=== PATIENT | female | born 1940 | race Caucasian/White ===

== ENCOUNTER → 2016-12-05 | Outpatient (CLI) | payer MEDICARE ==
--- NOTE | 2016-12-06 10:39 | MM ---
Reason for exam: screening (asymptomatic). Last mammogram was performed 1 year and 6 months ago. History: Family history of breast cancer in sister. Physical Findings: A clinical breast exam by your physician is recommended on an annual basis and results should be correlated with mammographic findings. MG 3D Screening Mammo W/Cad Bilateral CC and MLO view(s) were taken. Prior study comparison: June 13, 2015, mammogram, performed at [facility]. May 05, 2014, mammogram, performed at [facility]. The breast tissue is heterogeneously dense. This may lower the sensitivity of mammography. No significant changes when compared with prior studies. ASSESSMENT: Negative, BI-RAD 1 RECOMMENDATION: Routine screening mammogram of both breasts in 1 year.
== END | disposition home or self-care (01) ==
LOC: RADMAMWWP 14:16
PROVIDERS: ATTEND Family Medicine
DX: Z12.31 Encounter for screening mammogram for malignant neoplasm of breast (principal)
CPT/HCPCS: 77063; G0202

== ENCOUNTER → 2018-01-01 | Outpatient (CLI) | payer MEDICARE ==
--- NOTE | 2018-01-02 13:24 | MM ---
Reason for exam: screening (asymptomatic). Last mammogram was performed 1 year and 1 month ago. History: Family history of breast cancer in sister. Physical Findings: A clinical breast exam by your physician is recommended on an annual basis and results should be correlated with mammographic findings. MG 3D Screening Mammo W/Cad Bilateral CC and MLO view(s) were taken. Prior study comparison: December 05, 2016, bilateral MG 3d screening mammo w/cad. June 13, 2015, mammogram, performed at [facility]. The breast tissue is heterogeneously dense. This may lower the sensitivity of mammography. Stable benign calcifications. There is no discrete abnormality. No significant changes when compared with prior studies. ASSESSMENT: Benign, BI-RAD 2 RECOMMENDATION: Routine screening mammogram of both breasts in 1 year.
== END | disposition home or self-care (01) ==
LOC: RADMAMWWP 14:55
PROVIDERS: ATTEND Family Medicine
DX: Z12.31 Encounter for screening mammogram for malignant neoplasm of breast (principal)
CPT/HCPCS: 77063; 77067

== ENCOUNTER → 2018-03-05 | Outpatient (CLI) | payer MEDICARE ==
--- NOTE | 2018-03-06 07:08 | US ---
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 Hypothyroid- on meds. GLAND SIZE: Right Lobe: 4.2 x 2.0 x 1.8 cm Overall Parenchyma: heterogenous Left Lobe: 4.2 x 1.8 x 1.8 cm Overall Parenchyma: heterogeneous Isthmus Thickness: 0.6 cm NODULES RIGHT: # of nodules measured on right: 0 LEFT: # of nodules measured on left: 0 ISTHMUS: # of nodules measured in the isthmus: 0 Bilateral neck scanned, no evidence of lymphadenopathy. IMPRESSION: Bilateral heterogenous thyroid lobes with no prominent nodules visualized.
== END | disposition home or self-care (01) ==
LOC: RADUSWWP 16:39
PROVIDERS: ATTEND Family Medicine
DX: E04.1 Nontoxic single thyroid nodule (principal)
CPT/HCPCS: 76536

== ENCOUNTER 2018-03-22 22:02 | Emergency (ER) | payer MEDICARE ==
--- NOTE | 2018-03-23 00:02 | ED ---
Fall HPI - General Chief Complaint: Fall Stated Complaint: Fell Time Seen by Provider: 03/22/18 22:53 Source: patient Mode of arrival: ambulatory - History of Present Illness Initial Comments: This patient is 77-year-old woman who presents to be evaluated after she had a ground-level fall. Patient states that she had tripped and then she struck her right knee on the ground, as well as hitting her head against the couch which she believes wrenched her neck. She is not having pain in the head but she does have some tightness at the base of her neck. She also has some tenderness to the anterior knee. She did not note any lacerations. She did not have loss of consciousness. She was able to stand following the fall but she states it makes her knee hurt. She is concerned because she had surgical replacement of the right knee. 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 Place Fall Occurred: home Loss of Consciousness: none Prolonged Down Time?: no Location: neck Location - Extremities: Right: Knee Severity: moderate Quality: aching Context: tripped/slipped - Related Data Home Medications Medication Instructions Recorded Confirmed ALPRAZolam [Xanax] 0.5 mg PO TID PRN 03/22/18 03/22/18 Aspirin [[place] Aspirin EC] 81 mg PO DAILY 03/22/18 03/22/18 Azithromycin [Zithromax] 500 mg PO DAILY 03/22/18 03/22/18 Cholecalciferol [Vitamin D3] 1,000 unit PO DAILY 03/22/18 03/22/18 Levothyroxine Sodium [Synthroid] 100 mcg PO DAILY 03/22/18 03/22/18 Losartan [Cozaar] 50 mg PO DAILY 03/22/18 03/22/18 Pantoprazole [Protonix] 40 mg PO DAILY 03/22/18 03/22/18 Propranolol HCl [Inderal Xl] 80 mg PO DAILY 03/22/18 03/22/18 Vit C/E/Zn/Coppr/Lutein/Zeaxan 1 cap PO DAILY 03/22/18 03/22/18 [Preservision Areds 2 Softgel] Allergies Allergy/AdvReac Type Severity Reaction Status Date / Time acetaminophen Allergy Anaphylaxis Verified 03/22/18 23:04 [From Darvocet-N] amoxicillin [From Augmentin] Allergy Anaphylaxis Verified 03/22/18 23:04 clavulanic acid Allergy Anaphylaxis Verified 03/22/18 23:04 [From Augmentin] Corticosteroids Allergy Anaphylaxis Verified 03/22/18 23:04 (Glucocorticoids) levofloxacin [From Levaquin] Allergy Anaphylaxis Verified 03/22/18 23:04 naproxen [From Aleve] Allergy Swelling Verified 03/22/18 23:04 oxcarbazepine Allergy Anaphylaxis Verified 03/22/18 23:04 [From Trileptal] Penicillins Allergy Anaphylaxis Verified 03/22/18 23:04 propoxyphene Allergy Anaphylaxis Verified 03/22/18 23:04 [From Darvocet-N] Sulfa (Sulfonamide Allergy Anaphylaxis Verified 03/22/18 23:04 Antibiotics) Review of Systems ROS Statement: Those systems with pertinent positive or pertinent negative responses have been documented in the HPI. ROS Other: All systems not noted in ROS Statement are negative. Constitutional: Denies: weakness Eyes: Denies: vision change Respiratory: Denies: cough, dyspnea Cardiovascular: Denies: chest pain, syncope Gastrointestinal: Denies: abdominal pain Musculoskeletal: Reports: arthralgia (Right knee). Denies: back pain Skin: Denies: rash Neurological: Denies: headache Past Medical History Past Medical History: CVA/TIA, Hypertension, Thyroid Disorder History of Any Multi-Drug Resistant Organisms: None Reported Past Surgical History: Joint Replacement Additional Past Surgical History / Comment(s): bilateral knee Past Psychological History: Anxiety Smoking Status: Never smoker Past Alcohol Use History: None Reported Past Drug Use History: None Reported General Exam Limitations: no limitations General appearance: alert, in no apparent distress Head exam: Present: atraumatic, normocephalic, normal inspection Eye exam: Present: normal appearance Neck exam: Present: tenderness Respiratory exam: Present: normal lung sounds bilaterally. Absent: respiratory distress, wheezes, rales, rhonchi, stridor, chest wall tenderness Cardiovascular Exam: Present: regular rate, normal rhythm, normal heart sounds. Absent: systolic murmur, diastolic murmur, rubs, gallop GI/Abdominal exam: Present: soft. Absent: distended, tenderness, guarding, rebound, rigid, mass Extremities exam: Present: normal inspection, normal capillary refill. Absent: pedal edema, calf tenderness Back exam: Present: normal inspection. Absent: CVA tenderness (R), CVA tenderness (L), vertebral tenderness Neurological exam: Present: alert Skin exam: Present: warm, dry, intact, normal color. Absent: rash Course Vital Signs 03/22/18 03/23/18 22:15 02:23 Temperature 98.0 F 97.6 F Pulse Rate 75 72 Respiratory 18 16 Rate Blood Pressure 177/114 102/95 O2 Sat by Pulse 95 95 Oximetry Disposition Clinical Impression: Fall, Contusion of knee, right, Cervical strain Disposition: HOME SELF-CARE Condition: Good Instructions: Cervical Strain (ED), Fall Prevention for Older Adults (ED) Is patient prescribed a controlled substance at d/c from ED?: No Referrals: José Miguel Miner DO [Primary Care Provider] - 1-2 days
--- NOTE | 2018-03-23 01:05 | CT ---
EXAMINATION TYPE: CT cervical spine wo con DATE OF EXAM: 03/23/2018 COMPARISON: None HISTORY: Fall;evaluate for trauma CT DLP: 465.4 mGycm Automated exposure control for dose reduction was used. TECHNIQUE: CT scan of the cervical spine is obtained without contrast, axial images are obtained, sa gittal and coronal reformatted images are also reviewed. FINDINGS: Cervical vertebra have normal alignment. The posterior elements are intact. There is mild h ypertrophic facet arthropathy in the mid cervical spine. This spaces are fairly normal. There is no c ompression fracture. Skull base is intact. There are small calcifications in the soft tissues posteri or to the occipital condyles that probably relates to old degenerative phenomenon. IMPRESSION: Minor spondylotic changes. No fracture seen.
--- NOTE | 2018-03-23 01:06 | XR ---
EXAMINATION TYPE: XR knee complete RT DATE OF EXAM: 03/23/2018 COMPARISON: NONE HISTORY: Fall. Pain. TECHNIQUE: 3 views FINDINGS: There is right knee prosthesis. Components appear in anatomic position. I see no fracture. There is no sign of joint effusion. IMPRESSION: Negative exam. No fracture.
[2018-03-23 02:24] VITALS: BP 102/95; PULSE 72; RESP 16; TEMP 97.6
== END 2018-03-23 02:23 | disposition home or self-care (01) ==
LOC: EC 22:02
DX: S80.01XA Contusion of right knee, initial encounter (principal); S16.1XXA Strain of muscle, fascia and tendon at neck level, initial encounter; F41.9 Anxiety disorder, unspecified; I10 Essential (primary) hypertension; E03.9 Hypothyroidism, unspecified; Z79.82 Long term (current) use of aspirin; Z79.890 Hormone replacement therapy; Z79.899 Other long term (current) drug therapy; Z88.6 Allergy status to analgesic agent; Z88.0 Allergy status to penicillin; Z88.1 Allergy status to other antibiotic agents; Z88.2 Allergy status to sulfonamides; Z88.8 Allergy status to other drugs, medicaments and biological substances; Z86.73 Personal history of transient ischemic attack (TIA), and cerebral infarction without residual deficits; Z96.651 Presence of right artificial knee joint; W01.198A Fall on same level from slipping, tripping and stumbling with subsequent striking against other object, initial encounter; Y93.G3 Activity, cooking and baking; Y92.009 Unspecified place in unspecified non-institutional (private) residence as the place of occurrence of the external cause
CPT/HCPCS: 72125; 99284

== ENCOUNTER → 2019-02-21 | Outpatient (CLI) | payer MEDICARE ==
--- NOTE | 2019-02-23 09:58 | MM ---
Reason for exam: screening (asymptomatic). Last mammogram was performed 1 year and 2 months ago. History: Patient is postmenopausal. Family history of breast cancer in sister. Took hormonal contraceptives for 3 months. Physical Findings: A clinical breast exam by your physician is recommended on an annual basis and results should be correlated with mammographic findings. MG 3D Screening Mammo W/Cad Bilateral CC and MLO view(s) were taken. Prior study comparison: January 01, 2018, bilateral MG 3d screening mammo w/cad. December 05, 2016, bilateral MG 3d screening mammo w/cad. The breast tissue is heterogeneously dense. This may lower the sensitivity of mammography. Stable benign calcifications. There is no discrete abnormality. No significant changes when compared with prior studies. ASSESSMENT: Benign, BI-RAD 2 RECOMMENDATION: Routine screening mammogram of both breasts in 1 year.
== END | disposition home or self-care (01) ==
LOC: RADMAMWWP 10:32
PROVIDERS: ATTEND Family Medicine
DX: Z12.31 Encounter for screening mammogram for malignant neoplasm of breast (principal)
CPT/HCPCS: 77063; 77067

== ENCOUNTER → 2020-02-26 | Outpatient (CLI) | payer MEDICARE ==
--- NOTE | 2020-03-01 12:18 | MM ---
Reason for exam: screening (asymptomatic). Last mammogram was performed 1 year ago. History: Patient is postmenopausal. Family history of breast cancer in sister. Took hormonal contraceptives for 3 months. Physical Findings: A clinical breast exam by your physician is recommended on an annual basis and results should be correlated with mammographic findings. MG 3D Screening Mammo W/Cad Bilateral CC and MLO view(s) were taken. Prior study comparison: February 21, 2019, bilateral MG 3d screening mammo w/cad. January 01, 2018, bilateral MG 3d screening mammo w/cad. The breast tissue is heterogeneously dense. This may lower the sensitivity of mammography. Benign vascular calcifications on the left. No significant changes when compared with prior studies. ASSESSMENT: Negative, BI-RAD 1 RECOMMENDATION: Routine screening mammogram of both breasts in 1 year.
== END | disposition home or self-care (01) ==
LOC: RADMAMWWP 15:27
PROVIDERS: ATTEND Family Medicine
DX: Z12.31 Encounter for screening mammogram for malignant neoplasm of breast (principal)
CPT/HCPCS: 77063; 77067

== ENCOUNTER → 2022-02-21 | Outpatient (CLI) | payer MEDICARE ==
--- NOTE | 2022-02-21 12:41 | XR ---
EXAMINATION TYPE: XR chest 2V DATE OF EXAM: 02/21/2022 COMPARISON: NONE TECHNIQUE: PA and lateral views submitted. HISTORY: Cough and congestion FINDINGS: The lungs are clear and there is no pneumothorax, pleural effusion, or focal pneumonia. Heart size is stable. Coarsened interstitium. Biapical pleural thickening. Hypertrophic and degenerative changes spine. IMPRESSION: 1. Coarsened interstitium uncovering the basis of chronic lung disease. Without a prior exam for comp arison a mild bronchitis or interstitial pneumonitis could not be excluded.
== END | disposition home or self-care (01) ==
LOC: RADXRMAIN 12:08
PROVIDERS: ATTEND Nurse Practitioner Family
DX: J98.4 Other disorders of lung (principal); J39.3 Upper respiratory tract hypersensitivity reaction, site unspecified
CPT/HCPCS: 71046

== ENCOUNTER 2022-05-21 18:22 | Inpatient (IN) | payer MEDICARE ==
--- NOTE | 2022-05-21 18:59 | ED ---
General Adult HPI - General Chief complaint: Neuro Symptoms/Deficit Stated complaint: altered mental Time Seen by Provider: 05/21/22 18:48 Source: patient, RN notes reviewed Mode of arrival: wheelchair Limitations: no limitations - History of Present Illness Initial comments: Patient is a pleasant 82-year-old female presenting to the emergency department with concerns for altered mental status and slurred speech. Onset of symptoms was when she awoke from a nap around 4:30. Patient last known well was around 2 PM. Patient was confused and had slurred speech. This has improved. Patient no longer feels confused. Patient still has minimal speech problems however is close to normal. No arm or leg involvement. No headache. Patient does have h istory of 2 similar episodes years ago when diagnosed with TIAs. - Related Data Home Medications Medication Instructions Recorded Confirmed ALPRAZolam [Xanax] 0.5 mg PO TID PRN 03/22/18 03/22/18 Aspirin [[place] Aspirin EC] 81 mg PO DAILY 03/22/18 03/22/18 Azithromycin [Zithromax] 500 mg PO DAILY 03/22/18 03/22/18 Cholecalciferol [Vitamin D3] 1,000 unit PO DAILY 03/22/18 03/22/18 Levothyroxine Sodium [Synthroid] 100 mcg PO DAILY 03/22/18 03/22/18 Losartan [Cozaar] 50 mg PO DAILY 03/22/18 03/22/18 Pantoprazole [Protonix] 40 mg PO DAILY 03/22/18 03/22/18 Propranolol HCl [Inderal Xl] 80 mg PO DAILY 03/22/18 03/22/18 Vit C/E/Zn/Coppr/Lutein/Zeaxan 1 cap PO DAILY 03/22/18 03/22/18 [Preservision Areds 2 Softgel] Allergies Allergy/AdvReac Type Severity Reaction Status Date / Time acetaminophen Allergy Anaphylaxis Verified 03/22/18 23:04 [From Darvocet-N] amoxicillin [From Augmentin] Allergy Anaphylaxis Verified 03/22/18 23:04 clavulanic acid Allergy Anaphylaxis Verified 03/22/18 23:04 [From Augmentin] Corticosteroids Allergy Anaphylaxis Verified 03/22/18 23:04 (Glucocorticoids) levofloxacin [From Levaquin] Allergy Anaphylaxis Verified 03/22/18 23:04 naproxen [From Aleve] Allergy Swelling Verified 03/22/18 23:04 oxcarbazepine Allergy Anaphylaxis Verified 03/22/18 23:04 [From Trileptal] Penicillins Allergy Anaphylaxis Verified 03/22/18 23:04 propoxyphene Allergy Anaphylaxis Verified 03/22/18 23:04 [From Darvocet-N] Sulfa (Sulfonamide Allergy Anaphylaxis Verified 03/22/18 23:04 Antibiotics) Review of Systems ROS Statement: Those systems with pertinent positive or pertinent negative responses have been documented in the HPI. ROS Other: All systems not noted in ROS Statement are negative. Constitutional: Denies: fever Eyes: Denies: eye pain ENT: Denies: ear pain Respiratory: Denies: cough Cardiovascular: Denies: palpitations Endocrine: Denies: fatigue Gastrointestinal: Denies: abdominal pain Genitourinary: Denies: dysuria Musculoskeletal: Denies: back pain Skin: Denies: rash Neurological: Reports: as per HPI, confusion. Denies: headache, weakness Past Medical History Past Medical History: Chest Pain / Angina, CVA/TIA, GERD/Reflux, Hyperlipidemia, Hypertension, Thyroid Disorder History of Any Multi-Drug Resistant Organisms: None Reported Past Surgical History: Hysterectomy, Joint Replacement, Tonsillectomy Additional Past Surgical History / Comment(s): bilateral knee Past Psychological History: Anxiety Past Alcohol Use History: None Reported Past Drug Use History: None Reported General Exam Limitations: no limitations General appearance: alert, in no apparent distress Head exam: Present: normocephalic Eye exam: Present: normal appearance, PERRL, EOMI ENT exam: Present: normal oropharynx Neck exam: Present: normal inspection. Absent: tenderness Respiratory exam: Present: normal lung sounds bilaterally Cardiovascular Exam: Present: regular rate, normal rhythm GI/Abdominal exam: Present: soft. Absent: tenderness Extremities exam: Present: normal inspection. Absent: pedal edema, calf tenderness Neurological exam: Present: alert, oriented X3, CN II-XII intact. Absent: motor sensory deficit Expanded Neurological exam: Present: protecting the airway, other (Patient is slightly hesitant with speech with minimal slurring) Patient oriented to: Present: person, place, time Cranial nerves: EOM's Intact: Normal, Facial Sensation: Normal Sensory exam: Upper Extremity Light Touch: Normal, Lower Extremity Light Touch: Normal Motor strength exam: RUE: 5, LUE: 5, RLE: 5, LLE: 5 Eye Response: (4) open spontaneously Motor Response: (6) obeys commands Verbal Response: (5) oriented Psychiatric exam: Present: normal affect, normal mood Skin exam: Present: normal color Course Vital Signs 05/21/22 05/21/22 05/21/22 18:38 19:01 19:30 Temperature 97.3 F L Pulse Rate 61 67 Respiratory 16 18 Rate Blood Pressure 230/120 198/116 236/121 O2 Sat by Pulse 95 94 L Oximetry 05/21/22 05/21/22 19:40 19:50 Temperature Pulse Rate 66 68 Respiratory 16 16 Rate Blood Pressure 226/113 203/99 O2 Sat by Pulse 95 94 L Oximetry - Reevaluation(s) Reevaluation #1: 05/21/22 19:05 Patient is not a TPA candidate secondary to last known well greater than 4.5 hours. Patient states she does have an ALLERGY to contrast in her throat closes off. Patient also has an ALLERGY to steroids. Therefore CT will be canceled. 05/21/22 19:15 Case was discussed with Dr. Buenrostro who does agree patient is not a TPA candidate. EKG Findings - EKG Results: EKG: interpreted by ERMD (First-degree AV block IA of 261. Left axis. Nonspecific intraventricular conduction delay. No acute ST change.), sinus rhythm Medical Decision Making - Medical Decision Making Was pt. sent in by a medical professional or institution (, PA, VEHICLE SERVICE ATTENDANT, urgent care, hospital, or [facility]...) When possible be specific @ -No Did you speak to anyone other than the patient for history (EMS, parent, family, police, friend...)? What history was obtained from this source @ -Patient's niece is present and helps provide history including last known well Did you review nursing and triage notes (agree or disagree)? Why? @ -I reviewed and agree with nursing and triage notes Were old charts reviewed (outside hosp., previous admission, EMS record, old EKG, old radiological studies, urgent care reports/EKG's, [facility] records)? Report findings @ -No old charts were reviewed Differential Diagnosis (chest pain, altered mental status, abdominal pain women, abdominal pain men, vaginal bleeding, weakness, fever, dyspnea, syncope, headache, dizziness, GI bleed, back pain, seizure, CVA, palpatations, mental health)? @ -Differential Weakness: Hypoglycemia, shock, sepsis, hyponatremia, anemia, infection, CA, ETOH, adverse medicine reaction, overdose, stroke, this is not meant to be an all-inclusive list. EKG interpreted by me (3pts min.). @ -As above X-rays interpreted by me (1pt min.). @ -Chest x-ray does not reveal any acute process CT interpreted by me (1pt min.). @ -Computed tomography scan without large mass or bleed U/S interpreted by me (1pt. min.). @ -None done What testing was considered but not performed or refused? (CT, X-rays, U/S, labs)? Why? @ -CTA was considered however patient has contrast ALLERGY as well as corticosteroid ALLERGY What meds were considered but not given or refused? Why? @ -None Did you discuss the management of the patient with other professionals (professionals i.e. , PA, VEHICLE SERVICE ATTENDANT, lab, RT, psych nurse, social studies department chair, machine cutter, teacher, environmental officer, case filler)? Give summary @ -Case was discussed with Dr. Buenrostro who agrees patient is not a TPA candidate. Risks her felt to outweigh the benefits. Case also discussed with Dr. Miner who will admit his patient. Was smoking cessation discussed for >3mins.? @ -No Was critical care preformed (if so, how long)? @ -No Were there social determinants of health that impacted care today? How? (Homelessness, low income, unemployed, alcoholism, drug addiction, transport ation, low edu. Level, literacy, decrease access to med. care, long-term, rehab)? @ -No Was there de-escalation of care discussed even if they declined (Discuss DNR or withdrawal of care, Hospice)? DNR status @ -No What co-morbidities impacted this encounter? (DM, HTN, Smoking, COPD, CAD, Cancer, CVA, ARF, Chemo, Hep., AIDS, mental health diagnosis, sleep apnea, morbid obesity)? @ -None Was patient admitted / discharged? Hospital course, mention meds given and route, prescriptions, significant lab abnormalities, going to OR and other pertinent info. @ -Patient reevaluated and feels even somewhat better however not quite normal. Speech changes have not significantly changed. Patient will be admitted with neurology consult Undiagnosed new problem with uncertain prognosis? @ -No Drug Therapy requiring intensive monitoring for toxicity (Heparin, Nitro, Insulin, Cardizem)? @ -No Were any procedures done? @ -No Diagnosis/symptom? @ -CVA Acute, or Chronic, or Acute on Chronic? @ -Acute Uncomplicated (without systemic symptoms) or Complicated (systemic symptoms)? @ -default Side effects of treatment? @ -No Exacerbation, Progression, or Severe Exacerbation? @ -No Poses a threat to life or bodily function? How? (Chest pain, USA, CA, pneumonia, PE, COPD, DKA, ARF, appy, cholecystitis, CVA, Diverticulitis, Homicidal, Suicidal, threat to staff... and all critical care pts) @ -No - Lab Data Result diagrams: 05/21/22 19:01 05/21/22 19:01 Lab Results 05/21/22 05/21/22 05/21/22 Range/Units 19:01 19:01 19:01 WBC 4.1 (3.8-10.6) k/uL RBC 4.71 (3.80-5.40) m/uL Hgb 13.9 (11.4-16.0) gm/dL Hct 42.9 (34.0-46.0) % MCV 91.0 (80.0-100.0) fL MCH 29.5 (25.0-35.0) pg MCHC 32.4 (31.0-37.0) g/dL RDW 14.2 (11.5-15.5) % Plt Count 124 L (150-450) k/uL MPV 7.3 Neutrophils % 61 % Lymphocytes % 24 % Monocytes % 7 % Eosinophils % 4 % Basophils % 0 % Neutrophils # 2.5 (1.3-7.7) k/uL Lymphocytes # 1.0 (1.0-4.8) k/uL Monocytes # 0.3 (0-1.0) k/uL Eosinophils # 0.2 (0-0.7) k/uL Basophils # 0.0 (0-0.2) k/uL Sodium 137 (137-145) mmol/L Potassium 4.7 (3.5-5.1) mmol/L Chloride 99 (98-107) mmol/L Carbon Dioxide 31 H (22-30) mmol/L Anion Gap 7 mmol/L BUN 18 H (7-17) mg/dL Creatinine 0.64 (0.52-1.04) mg/dL Est GFR (CKD-EPI)AfAm >90 (>60 ml/min/1.73 sqM) Est GFR (CKD-EPI)NonAf 85 (>60 ml/min/1.73 sqM) Glucose 109 H (74-99) mg/dL POC Glucose (mg/dL) 122 H (70-110) mg/dL POC Glu Chemical Unit Operator ID Asa Goodwin Calcium 8.9 (8.4-10.2) mg/dL Total Bilirubin 0.5 (0.2-1.3) mg/dL AST 32 (14-36) U/L ALT 29 (4-34) U/L Alkaline Phosphatase 119 (38-126) U/L Total Protein 8.1 (6.3-8.2) g/dL Albumin 4.1 (3.5-5.0) g/dL Disposition Clinical Impression: Cerebrovascular accident (CVA) Disposition: ADMITTED IP TO THIS HOSP Is patient prescribed a controlled substance at d/c from ED?: No Referrals: José Miguel Miner DO [Primary Care Provider] - 1-2 days Time of Disposition: 20:02
[2022-05-21 19:02] LABS: Glucose,Whole Blood 122 mg/dL (70-110)
[2022-05-21] MEDS ORDERED: LABETALOL 5 MG/ML VIAL MDV IVP STA (19:22)
[2022-05-21 19:27] LABS: Basophils % (A) 0 %; Eosinophils # (A) 0.2 k/uL (0-0.7); Eosinophils % (A) 4 %; HCT 42.9 % (34.0-46.0); HGB 13.9 gm/dL (11.4-16.0); Lymphocytes % (A) 24 %; MCH 29.5 pg (25.0-35.0); MCHC 32.4 g/dL (31.0-37.0); Mean Platelet Volume 7.3; Monocytes # (A) 0.3 k/uL (0-1.0); Monocytes % (A) 7 %; Neutrophils # (A) 2.5 k/uL (1.3-7.7); Neutrophils % (A) 61 %; Platelet Count 124 k/uL (150-450); RBC 4.71 m/uL (3.80-5.40); RDW 14.2 % (11.5-15.5); WBC 4.1 k/uL (3.8-10.6)
--- NOTE | 2022-05-21 19:38 | CT ---
EXAMINATION TYPE: CT brain wo con DATE OF EXAM: 05/21/2022 COMPARISON: None HISTORY: neuro deficit CT DLP: 1162.6 mGycm Automated exposure control for dose reduction was used. Images obtained of the brain without contrast. Ventricles of normal size. There is no mass effect or midline shift. No sign of intracranial hemorrha ge. Calvarium is intact. There is normal aeration of the mastoid sinuses. No evidence of cerebral bernardo ma. There is some mucosal thickening left maxillary sinus. IMPRESSION: Negative CT scan of the brain. Minimal left maxillary sinusitis.
--- NOTE | 2022-05-21 19:43 | XR ---
EXAMINATION TYPE: XR chest 2V DATE OF EXAM: 05/21/2022 COMPARISON: 02/21/2022 HISTORY: Altered mental status TECHNIQUE: 2 views FINDINGS: Heart is normal. Lungs are clear of infiltrate. No heart failure. There are chest leads. Co stophrenic angles are clear. Bony thorax is intact. IMPRESSION: No active cardiopulmonary disease. No change.
[2022-05-21 19:47] LABS: ALT 29 U/L (4-34); African American GFR (CKD) >90 (>60 ml/min/1.73 sqM); Albumin 4.1 g/dL (3.5-5.0); Anion Gap 7 mmol/L; Blood Urea Nitrogen 18 mg/dL (7-17); Calcium 8.9 mg/dL (8.4-10.2); Carbon Dioxide 31 mmol/L (22-30); Chloride 99 mmol/L (98-107); Glucose 109 mg/dL (74-99); Non-African American GFR(CKD) 85 (>60 ml/min/1.73 sqM); Sodium 137 mmol/L (137-145); Total Bilirubin 0.5 mg/dL (0.2-1.3); Total Protein 8.1 g/dL (6.3-8.2)
[2022-05-21 19:56] LABS: AST 32 U/L (14-36); Alkaline Phosphatase 119 U/L (38-126); Potassium 4.7 mmol/L (3.5-5.1)
[2022-05-21] MEDS ORDERED: ASPIRIN 325 MG TAB PO STA (20:02)
[2022-05-21 20:06] LABS: Partial Thromboplastin Time 25.5 sec (22.0-30.0); Prothrombin Time 10.5 sec (9.0-12.0)
[2022-05-21] MEDS: SODIUM CHLORIDE 0.9% 1,000 ML IV SCH (21:41)
[2022-05-21] MEDS: ALPRAZolam 0.5 MG TAB PO PRN (23:48)
--- NOTE | 2022-05-21 23:51 | US ---
EXAMINATION TYPE: US carotid duplex BILAT DATE OF EXAM: 05/21/2022 COMPARISON: NONE CLINICAL HISTORY: Stenosis. stenosis TECHNIQUE: Carotid duplex ultrasound examination. Indirect Doppler criteria was utilized. FINDINGS: EXAM MEASUREMENTS: RIGHT: Peak Systolic Velocity (PSV) cm/sec ----- Right CCA: 69.0 ----- Right ICA: 47.0 ----- Right ECA: 84.0 ICA/CCA ratio: 0.7 RIGHT: End Diastole cm/sec ----- Right CCA: 12.9 ----- Right ICA: 11.3 ----- Right ECA: 16.7 LEFT: Peak Systolic Velocity (PSV) cm/sec ----- Left CCA: 64.7 ----- Left ICA: 84.5 ----- Left ECA: 66.9 ICA/CCA ratio: 1.3 LEFT: End Diastole cm/sec ----- Left CCA: 13.1 ----- Left ICA: 23.0 ----- Left ECA: 12.0 VERTEBRALS (direction of flow): Right Vertebral: Antegrade Left Vertebral: Antegrade Rhythm: Normal GOAT FARMER NOTES: Small amount of plaque visualized in bilateral bulbs. IMPRESSION: There is antegrade flow in the vertebral arteries. Mild bilateral plaque formation. Images of measurement suggests less than 25% stenosis in both hr internship al carotid arteries. Criteria for Assigning % of Stenosis / Diameter reduction (Estimation based on the indirect measurements of the internal carotid artery velocities (ICA PSV). 1. Normal (no stenosis)=ICA PSV < 125 cm/s: ratio < 2.0: ICA EDV<40 cm/s. 2. Less than 50% stenosis=ICA PSV < 125 cm/s: ratio < 2.0: ICA EDV<40 cm/s. 3. 50 to 69% stenosis=ICA PSV of 125 to 230 cm/s: ration 2.0 ? 4.0: ICA EDV 40-100 cm/s. 4. Greater than 70% stenosis to near occlusion= ICA PSV > 230 cm/s: ratio > 4.0: ICA EDV > 100 cm/s. 5. Near occlusion= ICA PSV velocities may be low or undetectable: variable ratio and ICA EDV. 6. Total occlusion=unable to detect flow.
[2022-05-22] MEDS: PANTOPRAZOLE 40 MG TABLET PO SCH (06:16)
[2022-05-22] MEDS: LEVOTHYROXINE 125 MCG TAB PO SCH (06:16)
[2022-05-22] MEDS ORDERED: PROPRANOLOL 40 MG TAB PO SCH (09:00)
[2022-05-22] MEDS: LORATADINE 10 MG TAB PO SCH (09:55)
[2022-05-22] MEDS: LOSARTAN 50 MG TAB PO SCH (09:55)
[2022-05-22] MEDS: ASPIRIN 325 MG TAB PO SCH (09:57)
[2022-05-22] MEDS ORDERED: traMADol 50 MG TAB PO PRN (10:21)
[2022-05-22] MEDS ORDERED: LEVOTHYROXINE 125 MCG TAB PO SCH (10:30)
--- NOTE | 2022-05-22 10:31 | CA ---
Transthoracic Echo Report Name: Bisi Tinsley Age: 82 Gender: F : 1940 Exam Date: 05/22/2022 07:24 Exam Location: [facility] Ht (in): 65 Wt (lb): 208 Ordering Physician: Giuseppe Rubin DO Attending/Referring Phys: Lookback Coordinator Kassandra Bond RDCS Procedure CPT: Indications: Thrombus Cardiac Hx: Technical Quality: Fair Contrast 1: Total Dose (mL): Contrast 2: Total Dose (mL): MEASUREMENTS (Male / Female) Normal Values 2D ECHO LV Diastolic Diameter PLAX 4.6 cm 4.2 - 5.9 / 3.9 - 5.3 cm LV Systolic Diameter PLAX 3.7 cm IVS Diastolic Thickness 2.1 cm 0.6 - 1.0 / 0.6 - 0.9 cm LVPW Diastolic Thickness 1.5 cm 0.6 - 1.0 / 0.6 - 0.9 cm LV Relative Wall Thickness 0.8 LA Volume 68.8 cm??? 18 - 58 / 22 - 52 cm??? M-MODE Aortic Root Diameter MM 3.0 cm AV Cusp Separation MM 1.6 cm DOPPLER AV Peak Velocity 161.3 cm/s AV Peak Gradient 10.4 mmHg LVOT Peak Velocity 95.2 cm/s LVOT Peak Gradient 3.6 mmHg MV Area PHT 4.2 cm??? Mitral E Point Velocity 71.3 cm/s Mitral A Point Velocity 92.8 cm/s Mitral E to A Ratio 0.8 MV Deceleration Time 178.8 ms TR Peak Velocity 281.6 cm/s TR Peak Gradient 31.7 mmHg Right Atrial Pressure 3.0 mmHg Pulmonary Artery Systolic Pressu 34.7 mmHg Right Ventricular Systolic Press 34.7 mmHg FINDINGS Left Ventricle Severely increased septal wall thickness. Moderately increased posterior wall thickness. Left ventricular cavity size normal. Left ventricular ejection fraction is estimated at 60 %. Grade 1 diastolic dysfunction. Right Ventricle Normal right ventricular size. Normal right ventricular global systolic function. Right ventricular systolic pressure estimated at 34.7 mm hg. Right Atrium Normal right atrial size. Left Atrium Moderately increased left atrial volume. Mitral Valve Mitral valve prolapse. [id number] mitral regurgitation. Aortic Valve Trileaflet aortic valve. Diffuse thickening (sclerosis) of the aortic valve cusps without reduced excursion. Mild aortic regurgitation. Tricuspid Valve Mild tricuspid regurgitation. Pulmonic Valve Structurally normal pulmonic valve. Pericardium No pericardial or pleural effusion. Aorta Normal size aortic root and proximal ascending aorta. CONCLUSIONS Technically difficult study for interpretation Normal LV systolic function [id number] mitral regurgitation Aortic sclerosis with no stenosis with mild insufficiency Previewed by: Dr. Jimmy Fox MD (Electronically Signed) Final Date: 22 May 2022 10:30
[2022-05-22 10:36] LABS: Chol/HDL Ratio 2.56 Ratio; LDL Cholesterol,Calculated 53.3 mg/dL (0.0-131.0)
[2022-05-22] MEDS: ALPRAZolam 0.5 MG TAB PO PRN (10:47)
[2022-05-22] MEDS ORDERED: LORazepam 2 MG/ML INJ IV PRN (12:05)
--- NOTE | 2022-05-22 12:21 | P.CNNES ---
History of Present Illness Consult date: 05/22/22 Requesting physician: Giuseppe Rubin Reason for Consult: CVA History of Present Illness: Sabrina 82-year-old woman with history of TIA, hypertension, cataract on left eye with anisocoria (left > right) who presented emergency department on 05/21/2022 because of difficulty getting her words out. She is accompanied by her niece was at bedside. According to the patient she woke up from a nap at 4:30 PM yesterday and last normal was at 2 PM yesterday. When she woke up she noticed that that she knew what she wanted to say but had difficulty getting the words out. She denies having any confusion but just had word finding the difficulty in getting the words out. She denies any history of stroke but was told she had TIA in the past. She is on aspirin 325mg daily. Denies history of atrial fibrillation flutter Some of the workup during his hospital visit consisted of: Initial serum glucose is 109. Lipid panel is triglyceride of 117, cholesterol 126, LDL 53 and HDL is 49. CT of the head is reported as negative CT scan of the brain. Minimal left sinusitis. Carotid duplex is reported as there is antegrade flow in the vertebral artery. Mild bilateral plaque formation. Images and measurements suggest less than 25% stenosis of both internal carotid arteries. Patient did not have the CT angiography of the head and neck because the patient has ALLERGY to contrast as well as steroids. The ED team spoke with the stroke attending (Dr. Bustamante). No IV TPA since the patient is last normal was more than 4-1/2 hour upon presented to our facility. And the risk outweighed the benefit of given TPA 2-D echocardiogram is reported as technically difficult study for agitation. Normal left ventricle systolic function. Mild to moderate mitral regurgitation. Aortic sclerosis with no stenosis with mild insufficiency. Review of Systems Review of system: The 12 point system was reviewed and apparent positive and negative per HPI. Past Medical History Past Medical History: Chest Pain / Angina, CVA/TIA, GERD/Reflux, Hyperlipidemia, Hypertension, Thyroid Disorder Additional Past Medical History / Comment(s): TIA in 2007 and 2010, Mitral Valve prolapse, hypothyroid. History of Any Multi-Drug Resistant Organisms: None Reported Past Surgical History: Hysterectomy, Joint Replacement, Tonsillectomy Additional Past Surgical History / Comment(s): bilateral knee, cataract removal left and right eye, temporal artery biopsy. Past Anesthesia/Blood Transfusion Reactions: No Reported Reaction Past Psychological History: Anxiety Smoking Status: Never smoker Past Alcohol Use History: None Reported Past Drug Use History: None Reported Medications and Allergies Home Medications Medication Instructions Recorded Confirmed Type ALPRAZolam [Xanax] 0.5 mg PO TID PRN 03/22/18 05/21/22 History Pantoprazole [Protonix] 40 mg PO DAILY 03/22/18 05/21/22 History Propranolol HCl [Inderal Xl] 80 mg PO DAILY 03/22/18 05/21/22 History Vit C/E/Zn/Coppr/Lutein/Zeaxan 1 cap PO DAILY 03/22/18 05/21/22 History [Preservision Areds 2 Softgel] Aspirin EC [Ecotrin] 325 mg PO DAILY 05/21/22 05/21/22 History Atorvastatin [Lipitor] 20 mg PO HS 05/21/22 05/21/22 History Cholecalciferol [Vitamin D3 (25 25 mcg PO DAILY 05/21/22 05/21/22 History Mcg = 1000 Iu)] Levothyroxine Sodium [Synthroid] 125 mcg PO DAILY 05/21/22 05/21/22 History Loratadine [Claritin] 10 mg PO DAILY 05/21/22 05/21/22 History Losartan Potassium 100 mg PO DAILY 05/21/22 05/21/22 History Allergies Allergy/AdvReac Type Severity Reaction Status Date / Time acetaminophen Allergy Anaphylaxis Verified 05/21/22 20:12 [From Darvocet-N] amoxicillin [From Augmentin] Allergy Anaphylaxis Verified 05/21/22 20:12 clavulanic acid Allergy Anaphylaxis Verified 05/21/22 20:12 [From Augmentin] codeine Allergy Unknown Verified 05/21/22 20:12 [From Tylenol-Codeine #3] Corticosteroids Allergy Anaphylaxis Verified 05/21/22 20:12 (Glucocorticoids) erythromycin base Allergy Unknown Verified 05/21/22 20:12 gabapentin Allergy Anaphylaxis Verified 05/21/22 20:13 Gadolinium-Containing Allergy Unknown Verified 05/21/22 20:12 Contrast Medi Iodinated Contrast Media Allergy Unknown Verified 05/21/22 20:12 levofloxacin [From Levaquin] Allergy Anaphylaxis Verified 05/21/22 20:12 naproxen [From Aleve] Allergy Swelling Verified 05/21/22 20:12 oxcarbazepine Allergy Anaphylaxis Verified 05/21/22 20:12 [From Trileptal] Penicillins Allergy Anaphylaxis Verified 05/21/22 20:12 phenytoin [From Dilantin] Allergy Anaphylaxis Verified 05/21/22 20:13 propoxyphene Allergy Anaphylaxis Verified 05/21/22 20:12 [From Darvocet-N] Sulfa (Sulfonamide Allergy Anaphylaxis Verified 05/21/22 20:12 Antibiotics) trimethobenzamide Allergy Unknown Verified 05/21/22 20:12 [From Tigan] potassium chloride AdvReac Chest Pain Verified 05/21/22 20:12 Physical Examination - Vital Signs Vital Signs: Vital Signs Temp Pulse Pulse Resp BP BP Pulse Ox 05/22/22 08:31 95 05/22/22 08:00 98.0 F 58 L 16 191/84 96 05/22/22 03: 97.4 F L 59 L 16 166/91 96 05/21/22 23:13 97.3 F L 70 16 179/82 94 L 05/21/22 20:20 97.2 F L 64 63 16 211/105 189/91 93 L 05/21/22 20:10 63 17 213/102 94 L 05/21/22 20:00 66 17 203/99 94 L 05/21/22 19:50 68 16 203/99 94 L 05/21/22 19:40 66 16 226/113 95 05/21/22 19:30 67 18 236/121 94 L 05/21/22 19:01 198/116 05/21/22 18:38 97.3 F L 61 16 230/120 95 Intake and Output 05/21/22 05/22/22 05/22/22 22:59 06:59 14:59 Other: Voiding Method Toilet Toilet Toilet # Voids 1 2 Weight 94.347 kg GENERAL: The patient is lying in bed and is not in acute distress. CHEST: The heart rate is regular rate rhythm. No murmurs to auscultation. LUNG: Clear to auscultation bilaterally no wheezing noted throughout. Not labored breathing. ABDOMEN/GI: Bowel sounds present in all 4 quadrants. No tenderness to palpation throughout. NEUROLOGICAL: Higher mental function: The patient is awake, alert, oriented to self, place and time. Patient is following simple commands. Is slowing getting words out and seems expressive aphasia. No paraphrasic errors. No neglect. Cranial nerves: The pupils are round, left is 5 (old as result of cataract surgery) and right is 3mm and and reactive to light on the right but left ?reactive to light. Visual burgess are full to confrontation throughout. Extraocular movement is intact no nystagmus is noted. Facial sensation is normal to touch throughout. The facial strength is right nasolabial flattening. Hearing is severely decreased bilaterally to hand rub. Tongue is midline and moved [id number] without any difficulty. Subtle dysarthria. Shoulder shrug is normal bilaterally. Motor: The strength is 5 over 5 throughout. Normal tone and bulk. Cerebellum: Normal finger to nose bilaterally. Sensation: Sensation is normal to touch throughout. Reflexes (right/left): 1+ throughout. Plantars are mute bilaterally. Results - Laboratory Findings CBC and BMP: 05/21/22 19:01 05/21/22 19:01 Abnormal Lab Findings: Abnormal Labs 05/21/22 05/21/22 05/21/22 19:01 19:01 19:01 Plt Count 124 L Carbon Dioxide 31 H BUN 18 H Glucose 109 H POC Glucose (mg/dL) 122 H Creatine Kinase 05/21/22 22:19 Plt Count Carbon Dioxide BUN Glucose POC Glucose (mg/dL) Creatine Kinase 26 L Assessment and Plan Assessment: Acute ischemic stroke (has expressive aphasia with right nasolabial flattening). No IV tpa since outside window History of TIA Hypertension Mitral valve prolapse Cataract over the left eye and has anisocoria (left > right) Plan: In addition to the patient's aspirin 325mg daily (home dose) I also started the patient on Plavix 75 mg daily. I'll increase her Lipitor from 20 mg to 4 mg daily at bedtime for seconds each prophylaxis. Ordered MRI of the brain and patient stated that she is claustrophobic so she would like Ativan all give her 1-2 mg of IV Ativan when necessary if needed. Continue checks Cardiac monitoring PT, OT and SCHOOL OFFICE MANAGER are consulted We'll defer the rest of the medical measure the primary team For DVT prophylaxis start the patient on subcu heparin 5000 at every 8 hours Upon discharge the patient needs to follow-up with a neurologist as an outpatient within 1-2 weeks. The plan was discussed with the patient and her niece's at bedside. As well as discussed the plan with her nurse. Thank you for the consultation Time with Patient: Greater than 30
[2022-05-22] MEDS: VIT A,C & E-LUTEIN-MINERALS 1 EACH TAB PO SCH (12:31)
[2022-05-22] MEDS: CLOPIDOGREL 75 MG TAB PO SCH (14:56)
--- NOTE | 2022-05-22 15:28 | P.HPIM ---
History of Present Illness H&P Date: 05/22/22 This is an 82-year-old female with past medical history of TIAs in 2017 2010, mitral valve prolapse, anxiety, chest pain, angina, hypertension, hypothyroidism and multiple other medical issues presented to the ER with complaints of expressive aphasia. Reports has been under significant stress related to furnace not working for the last week and a half, sleep deprived, grieving over her sister's recent 3 mths ago. Family history of CAD/atrial fibrillation. Denies any weakness. Reports the event occurred around 4:30 PM after awakening from a nap ;she just couldn't think, could not express herself correctly, garbled/slurred speach with insensible talk. Denies confusion.Denies headache at that particular time but does have a headache this morning, states it feels like a sinus headache frontal, extending down alongside her nares. Afebrile, normal WBC. Hemoglobin 13.9, platelets 124, PT 10.5, INR 1, sodium 137, potassium 4.7, bicarb 31, BUN 18, creatinine 0.64, glucose 109, creatinine kinase 26, triglycerides 117, cholesterol 126, LDL 53, HDL 49. Brain CT reportedly negative, minimal left maxillary sinusitis. Chest x-ray reported no active cardiopulmonary disease, no change. EKG is sinus rhythm with first- degree AV block. Carotid ultrasound reported intake good flow in the vertebral arteries, mild bilateral plaque formation, images and measurements suggest less than 25% stenosis in both internal carotid arteries. Echo reported difficult study, normal LV systolic function, mild to moderate mitral regurgitation, aortic sclerosis, with no stenosis, with mild insufficiency, normal size aortic root and proximal ascending aorta. Review of Systems ROS Statement: Those systems with pertinent positive or pertinent negative responses have been documented in the HPI. ROS Other: All systems not noted in ROS Statement are negative. Past Medical History Past Medical History: Chest Pain / Angina, CVA/TIA, GERD/Reflux, Hyperlipidemia, Hypertension, Thyroid Disorder Additional Past Medical History / Comment(s): TIA in 2007 and 2010, Mitral Valve prolapse, hypothyroid. History of Any Multi-Drug Resistant Organisms: None Reported Past Surgical History: Hysterectomy, Joint Replacement, Tonsillectomy Additional Past Surgical History / Comment(s): bilateral knee, cataract removal left and right eye, temporal artery biopsy. Past Anesthesia/Blood Transfusion Reactions: No Reported Reaction Past Psychological History: Anxiety Smoking Status: Never smoker Past Alcohol Use History: None Reported Past Drug Use History: None Reported Medications and Allergies Home Medications Medication Instructions Recorded Confirmed Type ALPRAZolam [Xanax] 0.5 mg PO TID PRN 03/22/18 05/21/22 History Pantoprazole [Protonix] 40 mg PO DAILY 03/22/18 05/21/22 History Propranolol HCl [Inderal Xl] 80 mg PO DAILY 03/22/18 05/21/22 History Vit C/E/Zn/Coppr/Lutein/Zeaxan 1 cap PO DAILY 03/22/18 05/21/22 History [Preservision Areds 2 Softgel] Aspirin EC [Ecotrin] 325 mg PO DAILY 05/21/22 05/21/22 History Atorvastatin [Lipitor] 20 mg PO HS 05/21/22 05/21/22 History Cholecalciferol [Vitamin D3 (25 25 mcg PO DAILY 05/21/22 05/21/22 History Mcg = 1000 Iu)] Levothyroxine Sodium [Synthroid] 125 mcg PO DAILY 05/21/22 05/21/22 History Loratadine [Claritin] 10 mg PO DAILY 05/21/22 05/21/22 History Losartan Potassium 100 mg PO DAILY 05/21/22 05/21/22 History Allergies Allergy/AdvReac Type Severity Reaction Status Date / Time acetaminophen Allergy Anaphylaxis Verified 05/21/22 20:12 [From Darvocet-N] amoxicillin [From Augmentin] Allergy Anaphylaxis Verified 05/21/22 20:12 clavulanic acid Allergy Anaphylaxis Verified 05/21/22 20:12 [From Augmentin] codeine Allergy Unknown Verified 05/21/22 20:12 [From Tylenol-Codeine #3] Corticosteroids Allergy Anaphylaxis Verified 05/21/22 20:12 (Glucocorticoids) erythromycin base Allergy Unknown Verified 05/21/22 20:12 gabapentin Allergy Anaphylaxis Verified 05/21/22 20:13 Gadolinium-Containing Allergy Unknown Verified 05/21/22 20:12 Contrast Medi Iodinated Contrast Media Allergy Unknown Verified 05/21/22 20:12 levofloxacin [From Levaquin] Allergy Anaphylaxis Verified 05/21/22 20:12 naproxen [From Aleve] Allergy Swelling Verified 05/21/22 20:12 oxcarbazepine Allergy Anaphylaxis Verified 05/21/22 20:12 [From Trileptal] Penicillins Allergy Anaphylaxis Verified 05/21/22 20:12 phenytoin [From Dilantin] Allergy Anaphylaxis Verified 05/21/22 20:13 propoxyphene Allergy Anaphylaxis Verified 05/21/22 20:12 [From Darvocet-N] Sulfa (Sulfonamide Allergy Anaphylaxis Verified 05/21/22 20:12 Antibiotics) trimethobenzamide Allergy Unknown Verified 05/21/22 20:12 [From Tigan] potassium chloride AdvReac Chest Pain Verified 05/21/22 20:12 Physical Exam Vitals: Vital Signs Temp Pulse Pulse Resp BP BP Pulse Ox 05/22/22 08:31 95 05/22/22 03: 97.4 F L 59 L 16 166/91 96 05/21/22 23:13 97.3 F L 70 16 179/82 94 L 05/21/22 20:20 97.2 F L 64 63 16 211/105 189/91 93 L 05/21/22 20:10 63 17 213/102 94 L 05/21/22 20:00 66 17 203/99 94 L 05/21/22 19:50 68 16 203/99 94 L 05/21/22 19:40 66 16 226/113 95 05/21/22 19:30 67 18 236/121 94 L 05/21/22 19:01 198/116 05/21/22 18:38 97.3 F L 61 16 230/120 95 Intake and Output 05/21/22 05/22/22 05/22/22 22:59 06:59 14:59 Other: Voiding Method Toilet Toilet # Voids 1 2 Weight 94.347 kg PHYSICAL EXAM: VITAL SIGNS: As above GENERAL: Sitting up in bed, no acute distress. Speech is clear and appropriate. HEENT: Conjunctivae normal. Pupils asymmetric/(left cataract surgery). MMM. NECK: Supple, No JVD. No thyroid enlargement. No LNs CARDIOVASCULAR: S1, S2 regular.. No murmur RESPIRATION: Breath sounds diminished in the bases. No rhonchi or crackles. No bronchial breathing. ABDOMEN: Soft, nontender . No guarding. no masses palpable. No ascites, No hepatosplenomegaly.Bowel sounds heard. LEGS: No edema. no swelling PSYCHIATRY: Alert and oriented X3, mood and affect normal. NERVOUS SYSTEM: Cranial N 2-12 grossly intact. No focal deficits. Strength and sensation grossly intact. Skin: Warm and dry, no rash Results CBC & Chem 7: 05/21/22 19:01 05/21/22 19: Labs: Abnormal Lab Results - Last 24 Hours (Table) 05/21/22 05/21/22 05/21/22 Range/Units 19:01 19:01 19:01 Plt Count 124 L (150-450) k/uL Carbon Dioxide 31 H (22-30) mmol/L BUN 18 H (7-17) mg/dL Glucose 109 H (74-99) mg/dL POC Glucose (mg/dL) 122 H (70-110) mg/dL Creatine Kinase (30-135) U/L 05/21/22 Range/Units 22:19 Plt Count (150-450) k/uL Carbon Dioxide (22-30) mmol/L BUN (7-17) mg/dL Glucose (74-99) mg/dL POC Glucose (mg/dL) (70-110) mg/dL Creatine Kinase 26 L (30-135) U/L Thrombosis Risk Factor Assmnt - Choose All That Apply Any of the Below Risk Factors Present?: No Other congenital or acquired thrombophilia - If yes, enter type in comment: No Assessment and Plan Assessment: Acute CVA with expressive aphasia in a patient with history of TIAs Gastroesophageal reflux disease Left eye cataract Hypertension Hyperlipidemia Hypothyroidism Mitral valve prolapse Anxiety Plan: Continue on current medication regime, monitoring and symptomatic treatmen t. Gentle IV fluid hydration. Continue on aspirin, statin .Speech,PT/OT, Neurology consults in place, neurology workup in progress. Patient is claustrophobic and will require some Ativan prior to MRI. Prognosis guarded given multiple complex medical issues. The impression and plan of care has been dictated as directed. : I performed a history and examination of this patient, discussed the same with the dictator. I agree with the dictator's note ,documented as a scribe. Any additional findings or plans will be noted.
--- NOTE | 2022-05-22 15:47 | MR ---
EXAMINATION TYPE: MR brain wo con DATE OF EXAM: 05/22/2022 3:40 PM COMPARISON: 05/21/2022. CLINICAL INDICATION:Female, 82 years old with history of aphasia, right facial droop. stroke; Aphasi a, right facial droop. TECHNIQUE: Multi planar, multi sequence imaging was performed through the brain including: T1, T2, In version recovery, Diffusion weighted imaging, and gradient echo imaging. No gadolinium was given. FINDINGS: The sauceda-white junctions, ventricular system, and cisterns appear unremarkable. Scattered foci of hi gh T2 signal intensity are seen within the periventricular white matter. Midline structures show no a bnormality. Diffusion-weighted imaging shows no evidence of restricted diffusion. The susceptibility weighted images do not reveal any evidence for micro-hemorrhage. The bone marrow signal is within normal limits. Paranasal sinuses and mastoid air cells: Mild scattered paranasal sinus disease. Visualized orbits: Bilateral aphakia IMPRESSION: 1. No evidence of intracranial mass or acute/subacute infarct. 2. Nonspecific white matter changes, likely secondary to small vessel ischemic disease.
[2022-05-22] MEDS: HEPARIN SODIUM,PORCINE/PF 5,000 UNIT/0.5 ML SYRINGE SQ SCH (18:06)
[2022-05-22] MEDS: SODIUM CHLORIDE 0.9% 1,000 ML IV SCH ×2 (18:08→18:34)
[2022-05-22] MEDS: ATORVASTATIN 40 MG TAB PO SCH (20:59)
[2022-05-22] MEDS ORDERED: ATORVASTATIN 20 MG TAB PO SCH (21:00)
[2022-05-23] MEDS: HEPARIN SODIUM,PORCINE/PF 5,000 UNIT/0.5 ML SYRINGE SQ SCH ×3 (00:42→17:48)
[2022-05-23] MEDS: SODIUM CHLORIDE 0.9% 1,000 ML IV SCH ×2 (05:37→13:06)
[2022-05-23] MEDS: PANTOPRAZOLE 40 MG TABLET PO SCH (06:24)
[2022-05-23] MEDS: LEVOTHYROXINE 125 MCG TAB PO SCH (06:24)
[2022-05-23 07:54] LABS: Basophils % (A) 0 %; Eosinophils # (A) 0.2 k/uL (0-0.7); Eosinophils % (A) 4 %; HGB 13.1 gm/dL (11.4-16.0); Lymphocytes # (A) 1.2 k/uL (1.0-4.8); Lymphocytes % (A) 25 %; MCH 30.3 pg (25.0-35.0); MCHC 32.9 g/dL (31.0-37.0); MCV 92.1 fL (80.0-100.0); Mean Platelet Volume 7.5; Monocytes # (A) 0.4 k/uL (0-1.0); Monocytes % (A) 8 %; Neutrophils # (A) 2.8 k/uL (1.3-7.7); Neutrophils % (A) 60 %; Platelet Count 115 k/uL (150-450); RBC 4.34 m/uL (3.80-5.40); RDW 14.5 % (11.5-15.5); WBC 4.7 k/uL (3.8-10.6)
[2022-05-23 08:10] LABS: Calcium 9.1 mg/dL (8.4-10.2); Potassium 3.8 mmol/L (3.5-5.1)
[2022-05-23] MEDS ORDERED: PROPRANOLOL LA 80 MG CAP.SA.24H PO SCH (09:00)
[2022-05-23] MEDS: ASPIRIN 325 MG TAB PO SCH (09:24)
[2022-05-23] MEDS: LOSARTAN 50 MG TAB PO SCH (09:24)
[2022-05-23] MEDS: CLOPIDOGREL 75 MG TAB PO SCH (09:24)
[2022-05-23] MEDS: VIT A,C & E-LUTEIN-MINERALS 1 EACH TAB PO SCH (09:24)
[2022-05-23] MEDS: LORATADINE 10 MG TAB PO SCH (09:24)
--- NOTE | 2022-05-23 12:43 | P.PN ---
Subjective Progress Note Date: 05/23/22 The patient is seen at bedside and she feels about the same. Denies of any neurological deficit. She continues to have the small right facial weakness. Objective - Vital Signs Vital signs: Vital Signs Temp 97.8 F 05/23/22 04:00 Pulse 63 05/23/22 09:10 Resp 16 05/23/22 09:10 BP 150/68 05/23/22 09:10 Pulse Ox 95 05/23/22 09:10 FiO2 Intake & Output 05/22/22 05/23/22 05/23/22 18:59 06:59 18:59 Intake Total 120 118 Balance 120 118 Intake: Oral 120 118 Other: Voiding Method Toilet Toilet # Voids 2 1 - Exam GENERAL: The patient is lying in bed and is not in acute distress. NEUROLOGICAL: Higher mental function: The patient is awake, alert, oriented to self, place and time. Patient is following simple commands. Is slowing getting words out and seems expressive aphasia. No paraphrasic errors. No neglect. Cranial nerves: The pupils are round, left is 5 (old as result of cataract surgery) and right is 3mm and and reactive to light on the right but left ?reactive to light. Visual burgess are full to confrontation throughout. Extraocular movement is intact no nystagmus is noted. Facial sensation is normal to touch throughout. The facial strength is right nasolabial flattening. Tongue is midline and moved [id number] without any difficulty. Subtle dysarthria. Shoulder shrug is normal bilaterally. Motor: The strength is 5 over 5 throughout. Normal tone and bulk. Cerebellum: Normal finger to nose bilaterally. Sensation: Sensation is normal to touch throughout. Reflexes (right/left): 1+ throughout. Plantars are mute bilaterally. Some of the workup during his hospital visit consisted of: Lipid panel is triglyceride of 117, cholesterol 126, LDL 53 and HDL is 49. CT of the head is reported as negative CT scan of the brain. Minimal left sinusitis. Carotid duplex is reported as there is antegrade flow in the vertebral artery. Mild bilateral plaque formation. Images and measurements suggest less than 25% stenosis of both internal carotid arteries. 2-D echocardiogram is reported as technically difficult study for agitation. Normal left ventricle systolic function. Mild to moderate mitral regurgitation. Aortic sclerosis with no stenosis with mild insufficiency. MRI the brain is reported as no evidence of intracranial mass or acute/subacute infarct. Nonspecific white matter changes, likely secondary due to small vessel ischemic disease. I pressure reviewed the MRI I felt the patient had questionable small focus frontal parietal cortical region [id number]. - Labs CBC & Chem 7: 05/23/22 06:20 05/23/22 06:20 Labs: Abnormal Lab Results - Last 24 Hours (Table) 05/23/22 05/23/22 Range/Units 06:20 06:20 Plt Count 115 L (150-450) k/uL Carbon Dioxide 31 H (22-30) mmol/L Glucose 114 H (74-99) mg/dL Assessment and Plan Assessment: Acute ischemic stroke (has expressive aphasia with right nasolabial flattening). History of TIA Hypertension Mitral valve prolapse Cataract over the left eye and has anisocoria (left > right) Plan: MRI the brain is reported as no evidence of intracranial mass or acute/subacute infarct. Nonspecific white matter changes, likely secondary due to small vessel ischemic disease. I pressure reviewed the MRI I felt the patient had questionable small focus frontal parietal cortical region [id number]. In addition to the patient's aspirin 325mg daily (home dose) I also started the patient on Plavix 75 mg daily. The patient to be on dual antiplatelets for 21 days from a neurologic perspective and after 21 days stop aspirin but continue Plavix indefinitely. Continue Lipitor 40 mg daily at bedtime for seconds each prophylaxis. Continue checks Cardiac monitoring PT, OT and STOPE MINER are consulted We'll defer the rest of the medical measure the primary team For DVT prophylaxis sOn subcu heparin 5000 at every 8 hours Upon discharge the patient needs to follow-up with a neurologist as an outpatient within 1-2 weeks. The plan was discussed with the patient and her nurse. There is no further neurologic workup the patient is clear from a neuro perspective. Please notify neurology team if any further concerns. Time with Patient: Less than 30
[2022-05-23] MEDS ORDERED: ALPRAZolam 0.5 MG TAB PO PRN (12:57)
[2022-05-23] MEDS ORDERED: NON FORMULARY DRUG (Losartan Potassium [Losartan Potassium] 100 MG Tablet) PO SCH (13:00)
[2022-05-23] MEDS ORDERED: hydrALAZINE HCL 50 MG TAB PO STA (13:00)
[2022-05-23] MEDS ORDERED: hydrALAZINE HCL 25 MG TAB PO STA ×2 (13:00→18:32)
[2022-05-23] MEDS: ALPRAZolam 0.5 MG TAB PO PRN ×2 (13:21→22:36)
--- NOTE | 2022-05-23 14:04 | P.DS ---
Providers Date of admission: 05/21/22 20:02 Expected date of discharge: 05/23/22 Attending physician: José Miguel Miner Consults: 05/21/22 20:03 Consult Physician Routine Consulting Provider: Uche Hinton Consult Reason/Comments: cva Do you want consulting provider notified?: Yes Primary care physician: José Miguel Miner [facility] Course: Final Diagnoses: Acute CVA with expressive aphasia in a patient with history of TIAs. Brain MRI reported no evidence of intracranial mass or acute/subacute infarct, nonspecific white matter changes, likely secondary to small vessel ischemic disease. Gastroesophageal reflux disease Left eye cataract Hypertension Hyperlipidemia Hypothyroidism Mitral valve prolapse Anxiety Hospital course:This is an 82-year-old female with past medical history of TIAs in 2018 2010, mitral valve prolapse, anxiety, chest pain, angina, hypertension, hypothyroidism and multiple other medical issues presented to the ER with complaints of expressive aphasia. Reports has been under significant stress related to furnace not working for the last week and a half, sleep deprived, grieving over her sister's recent 3 mths ago. Family history of CAD/atrial fibrillation. Denies any weakness. Reports the event occurred around 4:30 PM after awakening from a nap ;she just couldn't think, could not express herself correctly, garbled/slurred speach with insensible talk. Denies confusion.Denies headache at that particular time but does have a headache this morning, states it feels like a sinus headache frontal, extending down alongside her nares. Afebrile, normal WBC. Hemoglobin 13.9, platelets 124, PT 10.5, INR 1, sodium 137, potassium 4.7, bicarb 31, BUN 18, creatinine 0.64, glucose 109, creatinine kinase 26, triglycerides 117, cholesterol 126, LDL 53, HDL 49. Brain CT reportedly negative, minimal left maxillary sinusitis. Chest x-ray reported no active cardiopulmonary disease, no change. EKG is sinus rhythm with first- degree AV block. Carotid ultrasound reported intake good flow in the vertebral arteries, mild bilateral plaque formation, images and measurements suggest less than 25% stenosis in both internal carotid arteries. Echo reported difficult study, normal LV systolic function, mild to moderate mitral regurgitation, aortic sclerosis, with no stenosis, with mild insufficiency, normal size aortic root and proximal ascending aorta. Significant clinical improvement. Neurology workup completed, refer to urology consult. Brain MRI reported no evidence of intracranial mass or acute/subacute infarct, nonspecific white matter changes, likely secondary to small vessel ischemic disease. Continues on statin and Dual antiplatelet therapy with both full-strength aspirin and Plavix initiated; patient to stop aspirin 21 days, continue Plavix indefinitely. Patient will be discharged home today in a stable condition with guarded prognosis pending final DC recommendations and clearance per neurology. The impression and plan of care has been dictated as directed. : I performed a history and examination of this patient, discussed the same with the dictator. I agree with the dictator's note ,documented as a scribe. Any additional findings or plans will be noted. Patient Condition at Discharge: Stable Plan - Discharge Summary Discharge Rx Participant: No New Discharge Prescriptions: New Atorvastatin [Lipitor] 40 mg PO HS #30 tab Clopidogrel [Plavix] 75 mg PO DAILY #30 tab Continue Vit C/E/Zn/Coppr/Lutein/Zeaxan [Preservision Areds 2 Softgel] 1 cap PO DAILY Pantoprazole [Protonix] 40 mg PO DAILY ALPRAZolam [Xanax] 0.5 mg PO TID PRN PRN Reason: Anxiety Propranolol HCl [Inderal Xl] 80 mg PO DAILY Cholecalciferol [Vitamin D3 (25 Mcg = 1000 Iu)] 25 mcg PO DAILY Levothyroxine Sodium [Synthroid] 125 mcg PO DAILY Aspirin EC [Ecotrin] 325 mg PO DAILY #0 Losartan Potassium 100 mg PO DAILY Loratadine [Claritin] 10 mg PO DAILY Discontinued Atorvastatin [Lipitor] 20 mg PO HS Discharge Medication List ALPRAZolam [Xanax] 0.5 mg PO TID PRN 03/22/18 [History] Pantoprazole [Protonix] 40 mg PO DAILY 03/22/18 [History] Propranolol HCl [Inderal Xl] 80 mg PO DAILY 03/22/18 [History] Vit C/E/Zn/Coppr/Lutein/Zeaxan [Preservision Areds 2 Softgel] 1 cap PO DAILY 03/22/18 [History] Cholecalciferol [Vitamin D3 (25 Mcg = 1000 Iu)] 25 mcg PO DAILY 05/21/22 [History] Levothyroxine Sodium [Synthroid] 125 mcg PO DAILY 05/21/22 [History] Loratadine [Claritin] 10 mg PO DAILY 03/13/23 [History] Losartan Potassium 100 mg PO DAILY 05/21/22 [History] Aspirin EC [Ecotrin] 325 mg PO DAILY #0 05/23/22 [Rx] Atorvastatin [Lipitor] 40 mg PO HS #30 tab 05/23/22 [Rx] Clopidogrel [Plavix] 75 mg PO DAILY #30 tab 05/23/22 [Rx] Follow up Appointment(s)/Referral(s): Allison Byrd MD [REFERRING] - 1 Week José Miguel Miner DO [Primary Care Provider] - 3 Days Activity/Diet/Wound Care/Special Instructions: Continue on dual antiplatelet therapy for 21 days, with Plavix and aspirin, then DC aspirin after 21 days. Continue Plavix indefinitely.
[2022-05-23] MEDS: ATORVASTATIN 40 MG TAB PO SCH (21:31)
[2022-05-24] MEDS: HEPARIN SODIUM,PORCINE/PF 5,000 UNIT/0.5 ML SYRINGE SQ SCH ×2 (03:45→08:04)
[2022-05-24] MEDS: PANTOPRAZOLE 40 MG TABLET PO SCH (06:46)
[2022-05-24] MEDS: LEVOTHYROXINE 125 MCG TAB PO SCH (06:46)
[2022-05-24] MEDS: ASPIRIN 325 MG TAB PO SCH (08:03)
[2022-05-24] MEDS: VIT A,C & E-LUTEIN-MINERALS 1 EACH TAB PO SCH (08:03)
[2022-05-24] MEDS: LOSARTAN 50 MG TAB PO SCH (08:04)
[2022-05-24] MEDS: CLOPIDOGREL 75 MG TAB PO SCH (08:04)
[2022-05-24] MEDS: LORATADINE 10 MG TAB PO SCH (08:04)
[2022-05-24] MEDS: ALPRAZolam 0.5 MG TAB PO PRN (08:07)
[2022-05-24 11:19] VITALS: TEMP 97.5
[2022-05-24 12:51] VITALS: BP 156/74; PULSE 59; RESP 16
== END 2022-05-24 14:36 | disposition home or self-care (01) | DRG 66 ==
LOC: EC 18:22 → 3SCARD 20:02
PROVIDERS: ADMIT Family Medicine; ATTEND Family Medicine
DX: I63.9 Cerebral infarction, unspecified (principal); R47.01 Aphasia; I70.0 Atherosclerosis of aorta; R29.810 Facial weakness; R29.701 NIHSS score 1; I10 Essential (primary) hypertension; E03.9 Hypothyroidism, unspecified; K21.9 Gastro-esophageal reflux disease without esophagitis; E78.5 Hyperlipidemia, unspecified; I34.1 Nonrheumatic mitral (valve) prolapse; F40.240 Claustrophobia; Z79.82 Long term (current) use of aspirin; Z79.890 Hormone replacement therapy; Z79.899 Other long term (current) drug therapy; Z86.73 Personal history of transient ischemic attack (TIA), and cerebral infarction without residual deficits; H57.02 Anisocoria; I34.0 Nonrheumatic mitral (valve) insufficiency; I44.30 Unspecified atrioventricular block; Z91.041 Radiographic dye allergy status; Z88.8 Allergy status to other drugs, medicaments and biological substances; Z88.6 Allergy status to analgesic agent; Z88.1 Allergy status to other antibiotic agents; Z88.5 Allergy status to narcotic agent; Z88.0 Allergy status to penicillin; Z88.2 Allergy status to sulfonamides
CPT/HCPCS: 36415; 70450; 70551; 71046; 80048; 80053; 80061; 82550; 85025; 85610; 85730; 93005; 93306; 93880; 94760; 96374; 99285

== ENCOUNTER 2022-05-25 21:54 | Observation (INO) | payer MEDICARE ==
--- NOTE | 2022-05-25 22:43 | ED ---
General Adult HPI - General Chief complaint: Chest Pain Stated complaint: HBP, Chest Discomfort Time Seen by Provider: 05/25/22 22:06 Source: patient Mode of arrival: wheelchair Limitations: no limitations - History of Present Illness Initial comments: Dictation was produced using [employer] dictation software. please excuse any grammatical, word or spelling errors. Chief Complaint: 82-year-old female presents emergency department for chest pressure History of Present Illness: She is 82-year-old female presents emergency bile couple hours of chest pressure she states that it feels like she has bubbles in her chest. Denies any radiation of symptoms. No associated diaphoresis or nausea. Patient recently discharged after being admitted for hypertension, cerebrovascular accident. Patient states symptoms are mild. She refuses to identify the symptoms as pain. No shortness of breath. The ROS documented in this emergency department record has been reviewed and confirmed by me. Those systems with pertinent positive or negative responses have been documented in the HPI. All other systems are other negative and/or noncontributory. PHYSICAL EXAM: General Impression: Alert and oriented x3, not in acute distress HEENT: Normocephalic atraumatic, extra-ocular movements intact, pupils equal and reactive to light bilaterally, mucous membranes moist. Cardiovascular: Heart regular rate and rhythm Chest: Able to complete full sentences, no retractions, no tachypnea Abdomen: abdomen soft, non-tender, non-distended, no organomegaly Musculoskeletal: Pulses present and equal in all extremities, no peripheral edema Motor: no focal deficits noted Neurological: CN II-XII grossly intact, no focal motor or sensory deficits noted Skin: Intact with no visualized rashes Psych: Normal affect and mood ED course:82yo Overall well-appearing female recently admitted for CVA and hypertension presents to the ER for atypical chest pain typical features. Vital signs the initial hypertension of 201/129, worse vital signs within acceptable limits. EKG shows no signs of ischemia or infarction. Nursing notes and chart review was performed EKG interpreted by me: Ventricular rate 94, sinus rhythm, NV interval 03/12/1933, QRS 126, QTC 429. No NV prolongation, no QTC prolongation, no ST or T-wave changes noted. EKG compared to 05/21/2022 showing no changes. Overall, this EKG is unremarkable Was pt. sent in by a medical professional or institution (, PA, PERSONNEL MONITOR, urgent care, hospital, or assisted...) When possible be specific @ -No Did you speak to anyone other than the patient for history (EMS, parent, family, police, friend...)? What history was obtained from this source @ -No Did you review nursing and triage notes (agree or disagree)? Why? @ -I reviewed and agree with nursing and triage notes Were old charts reviewed (outside hosp., previous admission, EMS record, old EKG, old radiological studies, urgent care reports/EKG's, assisted records)? Report findings @ -No old charts were reviewed Differential Diagnosis (chest pain, altered mental status, abdominal pain women, abdominal pain men, vaginal bleeding, musculoskeletal, weakness, fever, dyspnea, syncope, headache, dizziness, GI bleed, back pain, seizure, CVA, palpatations, mental health)? @ -Differential Chest Pain: Stable Angina, Unstable Angina, STEMI, NSTEMI Aortic Dissection, Pneumothorax, Musculoskeletal, Esophageal Spasm GERD, Cholecystitis, Pancreatitis, Zoster, this is not meant to be an all-inclusive list. EKG interpreted by me (3pts min.). @ -As above X-rays interpreted by me (1pt min.). @ -Non acute CT interpreted by me (1pt min.). @ -None done U/S interpreted by me (1pt. min.). @ -None done What testing was considered but not performed or refused? (CT, X-rays, U/S, labs)? Why? @ -None What meds were considered but not given or refused? Why? @ -None Did you discuss the management of the patient with other professionals (professionals i.e. , PA, PERSONNEL MONITOR, lab, RT, psych nurse, social services coordinator, manager risk management, teacher, flight deck officer, director of casework department)? Give summary @ -Discussed with admitting physician Was smoking cessation discussed for >3mins.? @ -No Was critical care preformed (if so, how long)? @ -No Were there social determinants of health that impacted care today? How? (Homelessness, low income, unemployed, alcoholism, drug addiction, tr ansportation, low edu. Level, literacy, decrease access to med. care, group home, rehab)? @ -No Was there de-escalation of care discussed even if they declined (Discuss DNR or withdrawal of care, Hospice)? DNR status @ -No What co-morbidities impacted this encounter? (DM, HTN, Smoking, COPD, CAD, Cancer, CVA, ARF, Chemo, Hep., AIDS, mental health diagnosis, sleep apnea, morbid obesity)? @ -None Was patient admitted / discharged? Hospital course, mention meds given and route, prescriptions, significant lab abnormalities, going to OR and other pertinent info. @ -82-year-old female presents emergency department for atypical chest pain typical features. Labs are unremarkable. Troponin is negative. Chest x-ray is nonacute. EKG is not showing signs of ischemia infarction. Patient has considerable risk factors. Will be admitted observation for serial troponins, cardiac monitoring and cardiology consultation. Undiagnosed new problem with uncertain prognosis? @ -No Drug Therapy requiring intensive monitoring for toxicity (Heparin, Nitro, Insulin, Cardizem)? @ -No Were any procedures done? @ -No Diagnosis/symptom? Acute, or Chronic, or Acute on Chronic? Uncomplicated (without systemic symptoms) or Complicated (systemic symptoms)? @ -1. Chest pain Side effects of treatment? @ -No Exacerbation, Progression, or Severe Exacerbation? @ -No Poses a threat to life or bodily function? How? (Chest pain, [place], PR, pneumonia, PE, COPD, DKA, ARF, appy, cholecystitis, CVA, Diverticulitis, Homicidal, Suicidal, threat to staff... and all critical care pts) @ -yes - Related Data Home Medications Medication Instructions Recorded Confirmed ALPRAZolam [Xanax] 0.5 mg PO TID PRN 03/22/18 05/25/22 Pantoprazole [Protonix] 40 mg PO DAILY 03/22/18 05/25/22 Vit C/E/Zn/Coppr/Lutein/Zeaxan 1 cap PO DAILY 03/22/18 05/25/22 [Preservision Areds 2 Softgel] Cholecalciferol [Vitamin D3 (25 25 mcg PO DAILY 05/21/22 05/25/22 Mcg = 1000 Iu)] Levothyroxine Sodium [Synthroid] 125 mcg PO DAILY 05/21/22 05/25/22 Loratadine [Claritin] 10 mg PO DAILY 05/21/22 05/25/22 Losartan Potassium 100 mg PO DAILY 05/21/22 05/25/22 Previous Rx's Medication Instructions Recorded Aspirin EC [Ecotrin] 325 mg PO DAILY #0 05/23/22 Atorvastatin [Lipitor] 40 mg PO HS #30 tab 05/23/22 Clopidogrel [Plavix] 75 mg PO DAILY #30 tab 05/23/22 hydrALAZINE HCL [Apresoline] 25 mg PO TID #90 tab 05/23/22 Allergies Allergy/AdvReac Type Severity Reaction Status Date / Time acetaminophen Allergy Anaphylaxis Verified 05/25/22 22:35 [From Darvocet-N] amoxicillin [From Augmentin] Allergy Anaphylaxis Verified 05/25/22 22:35 clavulanic acid Allergy Anaphylaxis Verified 05/25/22 22:35 [From Augmentin] codeine Allergy Unknown Verified 05/25/22 22:35 [From Tylenol-Codeine #3] Corticosteroids Allergy Anaphylaxis Verified 05/25/22 22:35 (Glucocorticoids) erythromycin base Allergy Unknown Verified 05/25/22 22:35 gabapentin Allergy Anaphylaxis Verified 05/25/22 22:35 Gadolinium-Containing Allergy Unknown Verified 05/25/22 22:35 Contrast Medi Iodinated Contrast Media Allergy Unknown Verified 05/25/22 22:35 levofloxacin [From Levaquin] Allergy Anaphylaxis Verified 05/25/22 22:35 naproxen [From Aleve] Allergy Swelling Verified 05/25/22 22:35 oxcarbazepine Allergy Anaphylaxis Verified 05/25/22 22:35 [From Trileptal] Penicillins Allergy Anaphylaxis Verified 05/25/22 22:35 phenytoin [From Dilantin] Allergy Anaphylaxis Verified 05/25/22 22:35 propoxyphene Allergy Anaphylaxis Verified 05/25/22 22:35 [From Darvocet-N] Sulfa (Sulfonamide Allergy Anaphylaxis Verified 05/25/22 22:35 Antibiotics) trimethobenzamide Allergy Unknown Verified 05/25/22 22:35 [From Tigan] potassium chloride AdvReac Chest Pain Verified 05/25/22 22:35 Review of Systems ROS Statement: Those systems with pertinent positive or pertinent negative responses have been documented in the HPI. ROS Other: All systems not noted in ROS Statement are negative. Past Medical History Past Medical History: Chest Pain / Angina, CVA/TIA, GERD/Reflux, Hyperlipidemia, Hypertension, Thyroid Disorder Additional Past Medical History / Comment(s): TIA in 2007 and 2010, Mitral Valve prolapse, hypothyroid. History of Any Multi-Drug Resistant Organisms: None Reported Past Surgical History: Hysterectomy, Joint Replacement, Tonsillectomy Additional Past Surgical History / Comment(s): bilateral knee, cataract removal left and right eye, temporal artery biopsy. Past Anesthesia/Blood Transfusion Reactions: No Reported Reaction Past Psychological History: Anxiety Smoking Status: Never smoker Past Alcohol Use History: None Reported Past Drug Use History: None Reported General Exam Limitations: no limitations Course Vital Signs 05/25/22 05/25/22 05/26/22 21:56 23:25 00:13 Temperature 97.3 F L Pulse Rate 95 90 90 Respiratory 20 16 Rate Blood Pressure 201/129 194/111 185/112 O2 Sat by Pulse 96 97 Oximetry Medical Decision Making - Lab Data Result diagrams: 05/25/22 23:07 05/25/22 23:07 Lab Results 05/25/22 05/25/22 05/25/22 Range/Units 23:07 23:07 23:07 WBC 5.8 (3.8-10.6) k/uL RBC 4.96 (3.80-5.40) m/uL Hgb 15.2 (11.4-16.0) gm/dL Hct 44.9 (34.0-46.0) % MCV 90.5 (80.0-100.0) fL MCH 30.6 (25.0-35.0) pg MCHC 33.8 (31.0-37.0) g/dL RDW 14.3 (11.5-15.5) % Plt Count 127 L (150-450) k/uL MPV 6.9 Neutrophils % 71 % Lymphocytes % 17 % Monocytes % 6 % Eosinophils % 3 % Basophils % 0 % Neutrophils # 4.1 (1.3-7.7) k/uL Lymphocytes # 1.0 (1.0-4.8) k/uL Monocytes # 0.4 (0-1.0) k/uL Eosinophils # 0.2 (0-0.7) k/uL Basophils # 0.0 (0-0.2) k/uL PT 10.7 (9.0-12.0) sec INR 1.0 (<1.2) APTT 25.5 (22.0-30.0) sec Sodium 136 L (137-145) mmol/L Potassium 4.4 (3.5-5.1) mmol/L Chloride 101 (98-107) mmol/L Carbon Dioxide 25 (22-30) mmol/L Anion Gap 10 mmol/L BUN 19 H (7-17) mg/dL Creatinine 0.52 (0.52-1.04) mg/dL Est GFR (CKD-EPI)AfAm >90 (>60 ml/min/1.73 sqM) Est GFR (CKD-EPI)NonAf >90 (>60 ml/min/1.73 sqM) Glucose 132 H (74-99) mg/dL Calcium 9.6 (8.4-10.2) mg/dL Magnesium 2.0 (1.6-2.3) mg/dL Total Bilirubin 0.5 (0.2-1.3) mg/dL AST 34 (14-36) U/L ALT 29 (4-34) U/L Alkaline Phosphatase 142 H (38-126) U/L Troponin I (0.000-0.034) ng/mL Total Protein 8.3 H (6.3-8.2) g/dL Albumin 4.4 (3.5-5.0) g/dL 05/25/22 Range/Units 23:07 WBC (3.8-10.6) k/uL RBC (3.80-5.40) m/uL Hgb (11.4-16.0) gm/dL Hct (34.0-46.0) % MCV (80.0-100.0) fL MCH (25.0-35.0) pg MCHC (31.0-37.0) g/dL RDW (11.5-15.5) % Plt Count (150-450) k/uL MPV Neutrophils % % Lymphocytes % % Monocytes % % Eosinophils % % Basophils % % Neutrophils # (1.3-7.7) k/uL Lymphocytes # (1.0-4.8) k/uL Monocytes # (0-1.0) k/uL Eosinophils # (0-0.7) k/uL Basophils # (0-0.2) k/uL PT (9.0-12.0) sec INR (<1.2) APTT (22.0-30.0) sec Sodium (137-145) mmol/L Potassium (3.5-5.1) mmol/L Chloride (98-107) mmol/L Carbon Dioxide (22-30) mmol/L Anion Gap mmol/L BUN (7-17) mg/dL Creatinine (0.52-1.04) mg/dL Est GFR (CKD-EPI)AfAm (>60 ml/min/1.73 sqM) Est GFR (CKD-EPI)NonAf (>60 ml/min/1.73 sqM) Glucose (74-99) mg/dL Calcium (8.4-10.2) mg/dL Magnesium (1.6-2.3) mg/dL Total Bilirubin (0.2-1.3) mg/dL AST (14-36) U/L ALT (4-34) U/L Alkaline Phosphatase (38-126) U/L Troponin I <0.012 (0.000-0.034) ng/mL Total Protein (6.3-8.2) g/dL Albumin (3.5-5.0) g/dL Disposition Clinical Impression: Chest pain Disposition: ADMITTED IP TO THIS HOSP Condition: Fair Referrals: José Miguel Miner DO [Primary Care Provider] - 1-2 days Decision Time: 00:59
--- NOTE | 2022-05-25 23:01 | XR ---
EXAMINATION TYPE: XR chest 2V DATE OF EXAM: 05/25/2022 COMPARISON: 05/21/2022 HISTORY: Chest pain TECHNIQUE: 2 views FINDINGS: There is no heart failure nor confluent pneumonic infiltrate. Costophrenic angles are clear . There are chest leads. Bony thorax is intact IMPRESSION: No active cardiopulmonary disease. No change.
[2022-05-25 23:36] LABS: Basophils % (A) 0 %; Eosinophils # (A) 0.2 k/uL (0-0.7); Eosinophils % (A) 3 %; HCT 44.9 % (34.0-46.0); HGB 15.2 gm/dL (11.4-16.0); Lymphocytes % (A) 17 %; MCH 30.6 pg (25.0-35.0); MCHC 33.8 g/dL (31.0-37.0); MCV 90.5 fL (80.0-100.0); Mean Platelet Volume 6.9; Monocytes # (A) 0.4 k/uL (0-1.0); Monocytes % (A) 6 %; Neutrophils # (A) 4.1 k/uL (1.3-7.7); Neutrophils % (A) 71 %; Platelet Count 127 k/uL (150-450); RBC 4.96 m/uL (3.80-5.40); RDW 14.3 % (11.5-15.5); WBC 5.8 k/uL (3.8-10.6)
[2022-05-25 23:41] LABS: Partial Thromboplastin Time 25.5 sec (22.0-30.0); Prothrombin Time 10.7 sec (9.0-12.0)
[2022-05-25 23:43] LABS: ALT 29 U/L (4-34); AST 34 U/L (14-36); African American GFR (CKD) >90 (>60 ml/min/1.73 sqM); Albumin 4.4 g/dL (3.5-5.0); Alkaline Phosphatase 142 U/L (38-126); Anion Gap 10 mmol/L; Blood Urea Nitrogen 19 mg/dL (7-17); Calcium 9.6 mg/dL (8.4-10.2); Carbon Dioxide 25 mmol/L (22-30); Chloride 101 mmol/L (98-107); Glucose 132 mg/dL (74-99); Non-African American GFR(CKD) >90 (>60 ml/min/1.73 sqM); Potassium 4.4 mmol/L (3.5-5.1); Sodium 136 mmol/L (137-145); Total Bilirubin 0.5 mg/dL (0.2-1.3); Total Protein 8.3 g/dL (6.3-8.2)
[2022-05-26] MEDS ORDERED: ASPIRIN 81 MG PO STA (00:30)
[2022-05-26] MEDS ORDERED: NITROGLYCERIN SL TABS 0.4 MG TAB SUBLINGUAL PRN (00:51)
[2022-05-26] MEDS ORDERED: hydrALAZINE HCL 25 MG TAB PO STA (01:17)
[2022-05-26] MEDS: LEVOTHYROXINE 125 MCG TAB PO SCH (11:14)
--- NOTE | 2022-05-26 14:17 | P.CRDCN ---
History of Present Illness Consult date: 05/26/22 Consult reason: chest pain Chief complaint: chest pressure History of present illness: History of present illness: This is a pleasant 82-year-old female with significant past medical history of hypertension, mitral valve prolapse, TIA who was admitted with chest pressure. She reports that yesterday around 8 PM she was feeling a slight chest pressure and was burping "gassy bubbles ". She follows with Dr. Carl in the office. Blood pressure was elevated 201/129 in the emergency department. Troponin negative x3. She was recently admitted 05/21/22 with strokelike symptoms, she was having difficulty with expressive aphasia. She underwent echo that revealed EF 60%, mild to moderate mitral regurgitation, mild aortic insufficiency. Carotid Doppler showed mild plaquing bilaterally ICA less than 25%. MRI of the brain was negative for acute infection. She was started on Plavix. EKG shows sinus rhythm with first-degree AV block. Chest x-ray shows no acute cardiopulmonary disease. She had a recent stress test at [facility] in February 2022 that was reportedly negative. LDL is 53. She reports feeling better today, denies any chest pressure or pain, shortness of breath, dizziness, palpi tations, syncope. Blood pressure has improved and is 138/83 this morning. REVIEW OF SYSTEMS: No fever or chills. No cough or expectoration. No diaphoresis. Patient denies headache, dizziness, blurred vision, double vision. Patient denies any stomach discomfort. No nausea, vomiting. No hematochezia. No hematemesis. Denies any black stools or blood in his stools. Denies dysuria or hematuria. No muscle weakness or numbness. No chest pain or pressure. PHYSICAL EXAMINATION: This is a 82 year-old female in no apparent distress at the time of my examination. HEENT: Head is atraumatic, normocephalic. Pupils are equal, round. Sclerae anicteric. Conjunctivae are clear. Mucous membranes of the mouth are moist. Neck is supple. There is no jugular venous distention. No carotid bruit is heard. CHEST EXAMINATION: Lungs are clear to auscultation. No chest wall tenderness is noted on palpation or with deep breathing. HEART EXAMINATION: Heart regular rate and rhythm. S1, S2 heard. No murmurs, gal lops or rub. ABDOMEN: Soft, nontender. Bowel sounds are heard. EXTREMITIES: 2+ peripheral pulses with no evidence of peripheral edema and no calf tenderness noted. NEUROLOGIC EXAMINATION: Patient is awake, alert and oriented x3. IMPRESSION AND PLAN: Hypertension, uncontrolled TIA Mitral Valve Prolaspe Chest pain, atypical PLAN: Blood pressure was significantly elevated in ED and elevated on prior admission. Will continue to monitor blood pressure. Continue home medications, will resume propranolol. She had ECHO 05/21 and recent stress testing. No further cardiac work up indicated at this time. Will monitor patient overnight and anticipate discharge in 24 hr if blood pressure remains control and she remains stable. Will follow. I am dictating on behalf of Dr. Billy Carl's history/physical and assessment/plan. Past Medical History Past Medical History: Chest Pain / Angina, CVA/TIA, GERD/Reflux, Hyperlipidemia, Hypertension, Thyroid Disorder Additional Past Medical History / Comment(s): TIA in 2007 and 2010, Mitral Valve prolapse, hypothyroid. macular degen History of Any Multi-Drug Resistant Organisms: None Reported Past Surgical History: Hysterectomy, Joint Replacement, Tonsillectomy Additional Past Surgical History / Comment(s): bilateral knee, cataract removal left and right eye, temporal artery biopsy, hysterectomy Past Anesthesia/Blood Transfusion Reactions: No Reported Reaction Past Psychological History: Anxiety Smoking Status: Never smoker Past Alcohol Use History: None Reported Past Drug Use History: None Reported Medications and Allergies Home Medications Medication Instructions Recorded Confirmed Type ALPRAZolam [Xanax] 0.5 mg PO TID PRN 03/22/18 05/25/22 History Pantoprazole [Protonix] 40 mg PO DAILY 03/22/18 05/25/22 History Vit C/E/Zn/Coppr/Lutein/Zeaxan 1 cap PO DAILY 03/22/18 05/25/22 History [Preservision Areds 2 Softgel] Cholecalciferol [Vitamin D3 (25 25 mcg PO DAILY 05/21/22 05/25/22 History Mcg = 1000 Iu)] Levothyroxine Sodium [Synthroid] 125 mcg PO DAILY 05/21/22 05/25/22 History Loratadine [Claritin] 10 mg PO DAILY 05/21/22 05/25/22 History Losartan Potassium 100 mg PO DAILY 05/21/22 05/25/22 History Aspirin EC [Ecotrin] 325 mg PO DAILY #0 05/23/22 05/25/22 Rx Atorvastatin [Lipitor] 40 mg PO HS #30 tab 05/23/22 05/25/22 Rx Clopidogrel [Plavix] 75 mg PO DAILY #30 tab 05/23/22 05/25/22 Rx hydrALAZINE HCL [Apresoline] 25 mg PO TID #90 tab 05/23/22 05/25/22 Rx Allergies Allergy/AdvReac Type Severity Reaction Status Date / Time acetaminophen Allergy Anaphylaxis Verified 05/25/22 22:35 [From Darvocet-N] amoxicillin [From Augmentin] Allergy Anaphylaxis Verified 05/25/22 22:35 clavulanic acid Allergy Anaphylaxis Verified 05/25/22 22:35 [From Augmentin] codeine Allergy Unknown Verified 05/25/22 22:35 [From Tylenol-Codeine #3] Corticosteroids Allergy Anaphylaxis Verified 05/25/22 22:35 (Glucocorticoids) erythromycin base Allergy Unknown Verified 05/25/22 22:35 gabapentin Allergy Anaphylaxis Verified 05/25/22 22:35 Gadolinium-Containing Allergy Unknown Verified 05/25/22 22:35 Contrast Medi Iodinated Contrast Media Allergy Unknown Verified 05/25/22 22:35 levofloxacin [From Levaquin] Allergy Anaphylaxis Verified 05/25/22 22:35 naproxen [From Aleve] Allergy Swelling Verified 05/25/22 22:35 oxcarbazepine Allergy Anaphylaxis Verified 05/25/22 22:35 [From Trileptal] Penicillins Allergy Anaphylaxis Verified 05/25/22 22:35 phenytoin [From Dilantin] Allergy Anaphylaxis Verified 05/25/22 22:35 propoxyphene Allergy Anaphylaxis Verified 05/25/22 22:35 [From Darvocet-N] Sulfa (Sulfonamide Allergy Anaphylaxis Verified 05/25/22 22:35 Antibiotics) trimethobenzamide Allergy Unknown Verified 05/25/22 22:35 [From Tigan] potassium chloride AdvReac Chest Pain Verified 05/25/22 22:35 Physical Exam Vitals: Vital Signs Temp Pulse Pulse Resp BP BP Pulse Ox 05/26/22 11:22 75 18 127/82 96 05/26/22 09:56 64 18 05/26/22 08:26 97.3 F L 64 18 138/83 93 L 05/26/22 04:00 70 18 153/83 95 05/26/22 02:40 97.4 F L 84 18 176/107 98 05/26/22 02:20 98 F 69 16 172/97 97 05/26/22 00:13 90 185/112 05/25/22 23:25 90 16 194/111 97 05/25/22 21:56 97.3 F L 95 20 201/129 96 Intake and Output 05/25/22 05/26/22 05/26/22 22:59 06:59 14:59 Other: Voiding Method Toilet Toilet # Voids 1 Weight 90.718 kg 90.718 kg Results 05/25/22 23:07 05/25/22 23:07 Cardiac Enzymes 05/25/22 05/25/22 05/26/22 Range/Units 23:07 23:07 01:16 AST 34 (14-36) U/L Troponin I <0.012 <0.012 (0.000-0.034) ng/mL 05/26/22 Range/Units 04:08 AST (14-36) U/L Troponin I <0.012 (0.000-0.034) ng/mL Coagulation 05/25/22 Range/Units 23:07 PT 10.7 (9.0-12.0) sec APTT 25.5 (22.0-30.0) sec CBC 05/25/22 Range/Units 23:07 WBC 5.8 (3.8-10.6) k/uL RBC 4.96 (3.80-5.40) m/uL Hgb 15.2 (11.4-16.0) gm/dL Hct 44.9 (34.0-46.0) % Plt Count 127 L (150-450) k/uL Comprehensive Metabolic Panel 05/25/22 Range/Units 23:07 Sodium 136 L (137-145) mmol/L Potassium 4.4 (3.5-5.1) mmol/L Chloride 101 (98-107) mmol/L Carbon Dioxide 25 (22-30) mmol/L BUN 19 H (7-17) mg/dL Creatinine 0.52 (0.52-1.04) mg/dL Glucose 132 H (74-99) mg/dL Calcium 9.6 (8.4-10.2) mg/dL AST 34 (14-36) U/L ALT 29 (4-34) U/L Alkaline Phosphatase 142 H (38-126) U/L Total Protein 8.3 H (6.3-8.2) g/dL Albumin 4.4 (3.5-5.0) g/dL Current Medications Generic Name Dose Route Start Last Admin Trade Name Freq PRN Reason Stop Dose Admin Alprazolam 0.5 mg 05/26/22 10:26 Alprazolam 0.5 Mg Tab PO TID PRN Anxiety Aspirin 325 mg 05/27/22 09:00 Aspirin 325 Mg Tab PO DAILY [facility] Atorvastatin Calcium 40 mg 05/26/22 21:00 Atorvastatin 40 Mg Tab PO HS [facility] Cholecalciferol 25 mcg 05/27/22 09:00 Cholecalciferol 25 Mcg (1000 Iu) Tablet PO DAILY [facility] Clopidogrel Bisulfate 75 mg 05/27/22 09:00 Clopidogrel 75 Mg Tab PO DAILY [facility] Hydralazine HCl 25 mg 05/26/22 16:00 Hydralazine Hcl 25 Mg Tab PO TID [facility] Levothyroxine Sodium 125 mcg 05/26/22 10:30 05/26/22 11:14 Levothyroxine 125 Mcg Tab PO 125 mcg 0630 [facility] Administration Loratadine 10 mg 05/27/22 09:00 Loratadine 10 Mg Tab PO DAILY [facility] Losartan Potassium 100 mg 05/27/22 09:00 Losartan 50 Mg Tab PO DAILY [facility] Nitroglycerin 0.4 mg 05/26/22 00:51 Nitroglycerin Sl Tabs 0.4 Mg Tab SUBLINGUAL Q5M PRN Chest Pain Pantoprazole Sodium 40 mg 05/27/22 09:00 Pantoprazole 40 Mg Tablet PO DAILY [facility] Intake and Output 05/25/22 05/26/22 05/26/22 22:59 06:59 14:59 Other: Voiding Method Toilet Toilet # Voids 1 Weight 90.718 kg 90.718 kg 05/25/22 23:07 05/25/22 23:07
[2022-05-26] MEDS: hydrALAZINE HCL 25 MG TAB PO SCH ×2 (16:21→20:50)
[2022-05-26] MEDS: PROPRANOLOL 40 MG TAB PO SCH (20:50)
[2022-05-26] MEDS: SENNOSIDES 8.6 MG TAB PO SCH (20:50)
[2022-05-26] MEDS: ATORVASTATIN 40 MG TAB PO SCH (20:50)
[2022-05-26] MEDS: ALPRAZolam 0.5 MG TAB PO PRN (20:53)
--- NOTE | 2022-05-26 20:57 | P.HPIM ---
History of Present Illness H&P Date: 05/26/22 Chief Complaint: Chest discomfort 82-year-old female presents emergency bile couple hours of chest pressure she states that it feels like she has bubbles in her chest. Denies any radiation of symptoms. No associated diaphoresis or nausea. Patient recently discharged after being admitted for hypertension, cerebrovascular accident. Patient states symptoms are mild. She refuses to identify the symptoms as pain. No shortness of breath. Blood pressure was elevated 201/129 in the emergency department. Troponin negative x3. She was recently admitted 05/21/22 with strokelike symptoms, she was having difficulty with expressive aphasia. She underwent echo that revealed EF 60%, mild to moderate mitral regurgitation, mild aortic insufficiency. Carotid Doppler showed mild plaquing bilaterally ICA less than 25%. MRI of the brain was negative for acute infection. She was started on Plavix. EKG shows sinus rhythm with first-degree AV block. Chest x-ray shows no acute cardiopulmonary disease. She had a recent stress test at [facility] in February 2022 that was reportedly negative. LDL is 53. She reports feeling better today, denies any chest pressure or pain, shortness of breath, dizziness, palpitations, syncope. Blood pressure has improved and is 138/83 this morning. Review of Systems REVIEW OF SYSTEMS: CONSTITUTIONAL: No fever, no malaise, no fatigue. HEENT: No recent visual problems or hearing problems. Denied any sore throat. CARDIOVASCULAR: No chest pain, orthopnea, PND, no palpitations, no syncope. PULMONARY: No shortness of breath, no cough, no hemoptysis. GASTROINTESTINAL: No diarrhea, no nausea, no vomiting, no abdominal pain. NEUROLOGICAL: No headaches, no weakness, no numbness. HEMATOLOGICAL: Denies any bleeding or petechiae. GENITOURINARY: Denies any burning micturition, frequency, or urgency. MUSCULOSKELETAL/RHEUMATOLOGICAL: Denies any joint pain, swelling, or any muscle pain. ENDOCRINE: Denies any polyuria or polydipsia. The rest of the 14-point review of systems is negative. Past Medical History Past Medical History: Chest Pain / Angina, CVA/TIA, GERD/Reflux, Hyperlipidemia, Hypertension, Thyroid Disorder Additional Past Medical History / Comment(s): TIA in 2007 and 2010, Mitral Valve prolapse, hypothyroid. macular degen History of Any Multi-Drug Resistant Organisms: None Reported Past Surgical History: Hysterectomy, Joint Replacement, Tonsillectomy Additional Past Surgical History / Comment(s): bilateral knee, cataract removal left and right eye, temporal artery biopsy, hysterectomy Past Anesthesia/Blood Transfusion Reactions: No Reported Reaction Past Psychological History: Anxiety Smoking Status: Never smoker Past Alcohol Use History: None Reported Past Drug Use History: None Reported Medications and Allergies Home Medications Medication Instructions Recorded Confirmed Type ALPRAZolam [Xanax] 0.5 mg PO TID PRN 03/22/18 05/25/22 History Pantoprazole [Protonix] 40 mg PO DAILY 03/22/18 05/25/22 History Vit C/E/Zn/Coppr/Lutein/Zeaxan 1 cap PO DAILY 03/22/18 05/25/22 History [Preservision Areds 2 Softgel] Cholecalciferol [Vitamin D3 (25 25 mcg PO DAILY 05/21/22 05/25/22 History Mcg = 1000 Iu)] Levothyroxine Sodium [Synthroid] 125 mcg PO DAILY 05/21/22 05/25/22 History Loratadine [Claritin] 10 mg PO DAILY 05/21/22 05/25/22 History Losartan Potassium 100 mg PO DAILY 05/21/22 05/25/22 History Aspirin EC [Ecotrin] 325 mg PO DAILY #0 05/23/22 05/25/22 Rx Atorvastatin [Lipitor] 40 mg PO HS #30 tab 05/23/22 05/25/22 Rx Clopidogrel [Plavix] 75 mg PO DAILY #30 tab 05/23/22 05/25/22 Rx hydrALAZINE HCL [Apresoline] 25 mg PO TID #90 tab 05/23/22 05/25/22 Rx Allergies Allergy/AdvReac Type Severity Reaction Status Date / Time acetaminophen Allergy Anaphylaxis Verified 05/25/22 22:35 [From Darvocet-N] amoxicillin [From Augmentin] Allergy Anaphylaxis Verified 05/25/22 22:35 clavulanic acid Allergy Anaphylaxis Verified 05/25/22 22:35 [From Augmentin] codeine Allergy Unknown Verified 05/25/22 22:35 [From Tylenol-Codeine #3] Corticosteroids Allergy Anaphylaxis Verified 05/25/22 22:35 (Glucocorticoids) erythromycin base Allergy Unknown Verified 05/25/22 22:35 gabapentin Allergy Anaphylaxis Verified 05/25/22 22:35 Gadolinium-Containing Allergy Unknown Verified 05/25/22 22:35 Contrast Medi Iodinated Contrast Media Allergy Unknown Verified 05/25/22 22:35 levofloxacin [From Levaquin] Allergy Anaphylaxis Verified 05/25/22 22:35 naproxen [From Aleve] Allergy Swelling Verified 05/25/22 22:35 oxcarbazepine Allergy Anaphylaxis Verified 05/25/22 22:35 [From Trileptal] Penicillins Allergy Anaphylaxis Verified 05/25/22 22:35 phenytoin [From Dilantin] Allergy Anaphylaxis Verified 05/25/22 22:35 propoxyphene Allergy Anaphylaxis Verified 05/25/22 22:35 [From Darvocet-N] Sulfa (Sulfonamide Allergy Anaphylaxis Verified 05/25/22 22:35 Antibiotics) trimethobenzamide Allergy Unknown Verified 05/25/22 22:35 [From Tigan] potassium chloride AdvReac Chest Pain Verified 05/25/22 22:35 Physical Exam Vitals: Vital Signs Temp Pulse Pulse Resp BP BP Pulse Ox 05/26/22 09:56 64 18 05/26/22 08:26 97.3 F L 64 18 138/83 93 L 05/26/22 04:00 70 18 153/83 95 05/26/22 02:40 97.4 F L 84 18 176/107 98 05/26/22 02:20 98 F 69 16 172/97 97 05/26/22 00:13 90 185/112 05/25/22 23:25 90 16 194/111 97 05/25/22 21:56 97.3 F L 95 20 201/129 96 Intake and Output 05/25/22 05/26/22 05/26/22 22:59 06:59 14:59 Other: Voiding Method Toilet Toilet # Voids 1 Weight 90.718 kg 90.718 kg HEENT: Head is atraumatic, normocephalic. Pupils are equal, round. Sclerae anicteric. Conjunctivae are clear. Mucous membranes of the mouth are moist. Neck is supple. There is no jugular venous distention. No carotid bruit is heard. CHEST EXAMINATION: Lungs are clear to auscultation. No chest wall tenderness is noted on palpation or with deep breathing. HEART EXAMINATION: Heart regular rate and rhythm. S1, S2 heard. No murmurs, gallops or rub. ABDOMEN: Soft, nontender. Bowel sounds are heard. EXTREMITIES: 2+ peripheral pulses with no evidence of peripheral edema and no calf tenderness noted. NEUROLOGIC EXAMINATION: Patient is awake, alert and oriented x3. Results CBC & Chem 7: 05/25/22 23:07 05/25/22 23:07 Labs: Abnormal Lab Results - Last 24 Hours (Table) 05/25/22 05/25/22 Range/Units 23:07 23:07 Plt Count 127 L (150-450) k/uL Sodium 136 L (137-145) mmol/L BUN 19 H (7-17) mg/dL Glucose 132 H (74-99) mg/dL Alkaline Phosphatase 142 H (38-126) U/L Total Protein 8.3 H (6.3-8.2) g/dL Thrombosis Risk Factor Assmnt - Choose All That Apply Any of the Below Risk Factors Present?: No Other Risk Factors: Yes Each Risk Factor Represents 3 Points: Age 75 years or older Thrombosis Risk Factor Assessment Total Risk Factor Score: 3 Thrombosis Risk Factor Assessment Level: Moderate Risk Assessment and Plan Assessment: Hypertension, uncontrolled TIA Mitral Valve Prolaspe Chest pain, atypical Hypertension Hyperlipidemia Hypothyroidism CVA/TIA Mitral valve prolapse PLAN: Blood pressure was significantly elevated in ED and elevated on prior admission. Will continue to monitor blood pressure. Continue home medications, will resume propranolol. She had ECHO 05/21 and recent stress testing. No further cardiac work up indicated at this time. Will monitor patient overnight and anticipate discharge in 24 hr if blood pressure remains control and she remains stable. Will follow.
[2022-05-27] MEDS: LEVOTHYROXINE 125 MCG TAB PO SCH (05:52)
[2022-05-27] MEDS: PROPRANOLOL 40 MG TAB PO SCH ×2 (08:47→21:28)
[2022-05-27] MEDS: LOSARTAN 50 MG TAB PO SCH (08:47)
[2022-05-27] MEDS: LORATADINE 10 MG TAB PO SCH (08:47)
[2022-05-27] MEDS: ASPIRIN 325 MG TAB PO SCH (08:47)
[2022-05-27] MEDS: CHOLECALCIFEROL 25 MCG (1000 IU) TABLET PO SCH (08:47)
[2022-05-27] MEDS: PANTOPRAZOLE 40 MG TABLET PO SCH (08:47)
[2022-05-27] MEDS: hydrALAZINE HCL 25 MG TAB PO SCH ×3 (08:47→23:00)
[2022-05-27] MEDS: CLOPIDOGREL 75 MG TAB PO SCH (08:47)
[2022-05-27 11:00] LABS: LDL Cholesterol,Calculated 55.2 mg/dL (0.0-131.0); VLDL Calculation 19.76 mg/dL (5.00-40.00)
[2022-05-27] MEDS: ALPRAZolam 0.5 MG TAB PO PRN (14:12)
--- NOTE | 2022-05-27 15:33 | P.PN ---
Subjective Progress Note Date: 05/27/22 History of present illness: This is a pleasant 82-year-old female with significant past medical history of hypertension, mitral valve prolapse, TIA who was admitted with chest pressure. She reports that yesterday around 8 PM she was feeling a slight chest pressure and was burping "gassy bubbles ". She follows with Dr. Carl in the office. Blood pressure was elevated 201/129 in the emergency department. Troponin negative x3. She was recently admitted 05/21/22 with strokelike symptoms, she was having difficulty with expressive aphasia. She underwent echo that revealed EF 60%, mild to moderate mitral regurgitation, mild aortic insufficiency. Carotid Doppler showed mild plaquing bilaterally ICA less than 25%. MRI of the brain was negative for acute infection. She was started on Plavix. EKG shows sinus rhythm with first-degree AV block. Chest x-ray shows no acute cardiopulmonary disease. She had a recent stress test at [facility] in February 2022 that was reportedly negative. LDL is 53. She reports feeling better today, denies any chest pressure or pain, shortness of breath, dizziness, palpitations, syncope. Blood pressure has improved and is 138/83 this morning. 05/27 Pt complains of nausea today. Denies any further chest pressure or burping sensations. Denies shortness of breath. BP is better controlled with SBP 140- 160. PHYSICAL EXAMINATION: This is a 82 year-old female in no apparent distress at the time of my examination. HEENT: Head is atraumatic, normocephalic. Pupils are equal, round. Sclerae anicteric. Conjunctivae are clear. Mucous membranes of the mouth are moist. Neck is supple. There is no jugular venous distention. No carotid bruit is heard. CHEST EXAMINATION: Lungs are clear to auscultation. No chest wall tenderness is noted on palpation or with deep breathing. HEART EXAMINATION: Heart regular rate and rhythm. S1, S2 heard. No murmurs, gallops or rub. ABDOMEN: Soft, nontender. Bowel sounds are heard. EXTREMITIES: 2+ peripheral pulses with no evidence of peripheral edema and no calf tenderness noted. NEUROLOGIC EXAMINATION: Patient is awake, alert and oriented x3. IMPRESSION AND PLAN: Hypertension, uncontrolled TIA Mitral Valve Prolaspe Chest pain, atypical PLAN: Blood pressure is better controlled today. She is cleared for discharge to home from cardiology standpoint. Continue current medications. Follow up with Dr. Carl in clinic in 1 week. Call with any questions. I am dictating on behalf of Dr. Billy Carl's history/physical and assessment/plan. Objective - Vital Signs Vital signs: Vital Signs Temp 97.4 F L 05/27/22 08:40 Pulse 54 L 05/27/22 13:38 Resp 18 05/27/22 13:38 BP 160/82 05/27/22 11:41 Pulse Ox 94 L 05/27/22 11:41 FiO2 Intake & Output 05/26/22 05/27/22 05/27/22 18:59 06:59 18:59 Intake Total 478 118 Balance 478 118 Intake: Oral 478 118 Other: Voiding Method Toilet Toilet Toilet # Voids 2 - Labs CBC & Chem 7: 05/25/22 23:07 05/25/22 23:07
--- NOTE | 2022-05-27 19:21 | P.PN ---
Subjective Progress Note Date: 05/27/22 82-year-old female presents emergency bile couple hours of chest pressure she states that it feels like she has bubbles in her chest. Denies any radiation of symptoms. No associated diaphoresis or nausea. Patient recently discharged after being admitted for hypertension, cerebrovascular accident. Patient states symptoms are mild. She refuses to identify the symptoms as pain. No shortness of breath. Blood pressure was elevated 201/129 in the emergency department. Troponin negative x3. She was recently admitted 05/21/22 with strokelike symptoms, she was having difficulty with expressive aphasia. She underwent echo that revealed EF 60%, mild to moderate mitral regurgitation, mild aortic insufficiency. Carotid Doppler showed mild plaquing bilaterally ICA less than 25%. MRI of the brain was negative for acute infection. She was started on Plavix. EKG shows sinus rhythm with first-degree AV block. Chest x-ray shows no acute cardiopulmonary disease. She had a recent stress test at [facility] in February 2022 that was reportedly negative. LDL is 53. She reports feeling better today, denies any chest pressure or pain, shortness of breath, dizziness, palpitations, syncope. Blood pressure has improved and is 138/83 this morning. --Blood pressure is better controlled today. She is cleared for discharge to home from cardiology standpoint. Continue current medications. Follow up with Dr. Carl in clinic in 1 week. - Patient is very apprehensive of being discharged with current change in medications; reports he lives alone and does not feel comfortable and wants to be monitored on changed to medications for another 24 hours - Patient is stable for discharge in next 24 hours Objective - Vital Signs Vital signs: Vital Signs Temp 97.4 F L 05/27/22 08:40 Pulse 56 L 05/27/22 16:17 Resp 18 05/27/22 16:17 BP 183/83 05/27/22 16:17 Pulse Ox 96 05/27/22 16:17 FiO2 Intake & Output 05/26/22 05/27/22 05/27/22 18:59 06:59 18:59 Intake Total 478 118 Balance 478 118 Intake: Oral 478 118 Other: Voiding Method Toilet Toilet Toilet # Voids 2 - Exam HEENT: Head is atraumatic, normocephalic. Pupils are equal, round. Sclerae anicteric. Conjunctivae are clear. Mucous membranes of the mouth are moist. Neck is supple. There is no jugular venous distention. No carotid bruit is heard. CHEST EXAMINATION: Lungs are clear to auscultation. No chest wall tenderness is noted on palpation or with deep breathing. HEART EXAMINATION: Heart regular rate and rhythm. S1, S2 heard. No murmurs, gallops or rub. ABDOMEN: Soft, nontender. Bowel sounds are heard. EXTREMITIES: 2+ peripheral pulses with no evidence of peripheral edema and no calf tenderness noted. NEUROLOGIC EXAMINATION: Patient is awake, alert and oriented x3. - Labs CBC & Chem 7: 05/25/22 23:07 05/25/22 23:07 Assessment and Plan Assessment: Hypertension, uncontrolled TIA Mitral Valve Prolaspe Chest pain, atypical Hypertension Hyperlipidemia Hypothyroidism CVA/TIA Mitral valve prolapse PLAN: Blood pressure was significantly elevated in ED and elevated on prior admission. Will continue to monitor blood pressure. Continue home medications, will resume propranolol. She had ECHO 05/21 and recent stress testing. No further cardiac work up indicated at this time. Will monitor patient overnight and anticipate discharge in 24 hr if blood pressure remains control and she remains stable. Will follow.
[2022-05-27] MEDS: SENNOSIDES 8.6 MG TAB PO SCH (20:24)
[2022-05-27] MEDS: ATORVASTATIN 40 MG TAB PO SCH (21:28)
[2022-05-28] MEDS: LEVOTHYROXINE 125 MCG TAB PO SCH (05:17)
[2022-05-28] MEDS: ALPRAZolam 0.5 MG TAB PO PRN (06:30)
[2022-05-28 08:08] VITALS: RESP 18; TEMP 97.5
[2022-05-28] MEDS: PROPRANOLOL 40 MG TAB PO SCH (08:09)
[2022-05-28] MEDS: ASPIRIN 325 MG TAB PO SCH (08:09)
[2022-05-28] MEDS: CLOPIDOGREL 75 MG TAB PO SCH (08:09)
[2022-05-28] MEDS: CHOLECALCIFEROL 25 MCG (1000 IU) TABLET PO SCH (08:09)
[2022-05-28] MEDS: LORATADINE 10 MG TAB PO SCH (08:09)
[2022-05-28] MEDS: PANTOPRAZOLE 40 MG TABLET PO SCH (08:09)
[2022-05-28] MEDS: hydrALAZINE HCL 25 MG TAB PO SCH (08:09)
[2022-05-28] MEDS: LOSARTAN 50 MG TAB PO SCH (08:09)
[2022-05-28 13:37] VITALS: BP 114/57; PULSE 58
--- NOTE | 2022-05-30 10:23 | P.DS ---
Providers Date of admission: 05/26/22 00:51 Expected date of discharge: 05/28/22 Attending physician: José Miguel Miner Consults: 05/26/22 00:51 Consult Physician Urgent Consulting Provider: Billy Carl Consult Reason/Comments: chest pressure Do you want consulting provider notified?: Yes Primary care physician: José Miguel Miner [facility] Course: Final Diagnoses: Hypertension, uncontrolled Anxiety TIA Mitral Valve Prolaspe Chest pain, atypical Hypertension Hyperlipidemia Hypothyroidism CVA/TIA Mitral valve prolapse Hospital course: This is a patient discharged on the , returned on the , with recurrent chest pressure, anxiety and uncontrolled hypertension. Re- evaluated by cardiology, Inderal added to med regimen, monitored overnight and cleared yesterday for discharge. Significant clinical improvement. Patient will be discharged home this morning in a stable condition with guarded prognosis. The impression and plan of care has been dictated as directed. : I performed a history and examination of this patient, discussed the same with the dictator. I agree with the dictator's note ,documented as a scribe. Any additional findings or plans will be noted. Patient Condition at Discharge: Stable Plan - Discharge Summary Discharge Rx Participant: No New Discharge Prescriptions: New Propranolol [Inderal] 40 mg PO BID #60 tab Sennosides [Senokot] 8.6 mg PO HS tab Continue Vit C/E/Zn/Coppr/Lutein/Zeaxan [Preservision Areds 2 Softgel] 1 cap PO DAILY Pantoprazole [Protonix] 40 mg PO DAILY ALPRAZolam [Xanax] 0.5 mg PO TID PRN PRN Reason: Anxiety Cholecalciferol [Vitamin D3 (25 Mcg = 1000 Iu)] 25 mcg PO DAILY Levothyroxine Sodium [Synthroid] 125 mcg PO DAILY Atorvastatin [Lipitor] 40 mg PO HS #30 tab Clopidogrel [Plavix] 75 mg PO DAILY #30 tab Aspirin EC [Ecotrin] 325 mg PO DAILY #0 hydrALAZINE HCL [Apresoline] 25 mg PO TID #90 tab Losartan Potassium 100 mg PO DAILY Loratadine [Claritin] 10 mg PO DAILY Discharge Medication List ALPRAZolam [Xanax] 0.5 mg PO TID PRN 03/22/18 [History] Pantoprazole [Protonix] 40 mg PO DAILY 03/22/18 [History] Vit C/E/Zn/Coppr/Lutein/Zeaxan [Preservision Areds 2 Softgel] 1 cap PO DAILY 03/22/18 [History] Cholecalciferol [Vitamin D3 (25 Mcg = 1000 Iu)] 25 mcg PO DAILY 05/21/22 [History] Levothyroxine Sodium [Synthroid] 125 mcg PO DAILY 05/21/22 [History] Loratadine [Claritin] 10 mg PO DAILY 05/21/22 [History] Losartan Potassium 100 mg PO DAILY 05/21/22 [History] Aspirin EC [Ecotrin] 325 mg PO DAILY #0 05/23/22 [Rx] Atorvastatin [Lipitor] 40 mg PO HS #30 tab 05/23/22 [Rx] Clopidogrel [Plavix] 75 mg PO DAILY #30 tab 05/23/22 [Rx] hydrALAZINE HCL [Apresoline] 25 mg PO TID #90 tab 05/23/22 [Rx] Propranolol [Inderal] 40 mg PO BID #60 tab 05/28/22 [Rx] Sennosides [Senokot] 8.6 mg PO HS tab 05/28/22 [Rx] Follow up Appointment(s)/Referral(s): Billy Carl DO [STAFF PHYSICIAN] - 06/07/22 2:15 pm José Miguel Miner DO [Primary Care Provider] - 05/29/22 (as prev. scheduled) Patient Instructions/Handouts: Angina (DC) Discharge Disposition: HOME SELF-CARE
== END 2022-05-28 14:09 | disposition home or self-care (01) ==
LOC: EC 21:54 → 3SCARD 05-26 00:51
PROVIDERS: ADMIT Family Medicine; ATTEND Family Medicine
DX: R07.89 Other chest pain (principal); I10 Essential (primary) hypertension; K21.9 Gastro-esophageal reflux disease without esophagitis; E78.5 Hyperlipidemia, unspecified; E03.9 Hypothyroidism, unspecified; I34.1 Nonrheumatic mitral (valve) prolapse; F41.9 Anxiety disorder, unspecified; I44.0 Atrioventricular block, first degree; H35.30 Unspecified macular degeneration; Z86.73 Personal history of transient ischemic attack (TIA), and cerebral infarction without residual deficits; Z79.899 Other long term (current) drug therapy; Z79.890 Hormone replacement therapy; Z79.82 Long term (current) use of aspirin; Z79.02 Long term (current) use of antithrombotics/antiplatelets; Z88.6 Allergy status to analgesic agent; Z88.5 Allergy status to narcotic agent; Z88.0 Allergy status to penicillin; Z88.2 Allergy status to sulfonamides; Z90.710 Acquired absence of both cervix and uterus; Z98.42 Cataract extraction status, left eye; Z98.41 Cataract extraction status, right eye; Z91.041 Radiographic dye allergy status
CPT/HCPCS: 99285; 36415; 93005; 80061; 80053; 83735; 84484 ×2; 85025; 85610; 85730; 71046; G0378 ×3

== ENCOUNTER 2022-06-14 17:22 | Emergency (ER) | payer MEDICARE ==
--- NOTE | 2022-06-14 17:50 | ED ---
Chest Pain HPI - General Chief Complaint: Chest Pain Stated Complaint: Chest discomfort Time Seen by Provider: 06/14/22 17:30 Source: patient Mode of arrival: EMS Limitations: no limitations - History of Present Illness Initial Comments: 82-year-old female past medical history of CVA, hypertension who presents emergency room reporting a burning sensation in her chest. States it's been present since she took her medications at 8 AM this morning. She reports that she has also been having palpitations on and off all day. She called and spoke to her daughter who tried to get her to relax at home as she thought this was related to anxiety. Patient has been evaluated twice in the past 2 weeks for this complaint. She did have recent medication changes. She denies fevers, chills or cough. Admits to nausea without vomiting. No ripping or tearing sensation to her back. No calf pain or swelling. No other alleviating, precipitating or modifying factors - Related Data Home Medications Medication Instructions Recorded Confirmed ALPRAZolam [Xanax] 0.5 mg PO TID PRN 03/22/18 06/14/22 Pantoprazole [Protonix] 40 mg PO DAILY 03/22/18 06/14/22 Vit C/E/Zn/Coppr/Lutein/Zeaxan 1 cap PO DAILY 03/22/18 06/14/22 [Preservision Areds 2 Softgel] Cholecalciferol [Vitamin D3 (25 25 mcg PO DAILY 05/21/22 06/14/22 Mcg = 1000 Iu)] Levothyroxine Sodium [Synthroid] 125 mcg PO DAILY 05/21/22 06/14/22 Loratadine [Claritin] 10 mg PO DAILY 05/21/22 06/14/22 Losartan Potassium 100 mg PO DAILY 05/21/22 06/14/22 Previous Rx's Medication Instructions Recorded Aspirin EC [Ecotrin] 325 mg PO DAILY #0 05/23/22 Atorvastatin [Lipitor] 40 mg PO HS #30 tab 05/23/22 Clopidogrel [Plavix] 75 mg PO DAILY #30 tab 05/23/22 hydrALAZINE HCL [Apresoline] 25 mg PO TID #90 tab 05/23/22 Propranolol [Inderal] 40 mg PO BID #60 tab 05/28/22 Sennosides [Senokot] 8.6 mg PO HS tab 05/28/22 Allergies Allergy/AdvReac Type Severity Reaction Status Date / Time acetaminophen Allergy Anaphylaxis Verified 06/14/22 18:36 [From Darvocet-N] amoxicillin [From Augmentin] Allergy Anaphylaxis Verified 06/14/22 18:36 clavulanic acid Allergy Anaphylaxis Verified 06/14/22 18:36 [From Augmentin] codeine Allergy Unknown Verified 06/14/22 18:36 [From Tylenol-Codeine #3] Corticosteroids Allergy Anaphylaxis Verified 06/14/22 18:36 (Glucocorticoids) erythromycin base Allergy Unknown Verified 06/14/22 18:36 gabapentin Allergy Anaphylaxis Verified 06/14/22 18:36 Gadolinium-Containing Allergy Unknown Verified 06/14/22 18:36 Contrast Medi Iodinated Contrast Media Allergy Unknown Verified 06/14/22 18:36 levofloxacin [From Levaquin] Allergy Anaphylaxis Verified 06/14/22 18:36 naproxen [From Aleve] Allergy Swelling Verified 06/14/22 18:36 oxcarbazepine Allergy Anaphylaxis Verified 06/14/22 18:36 [From Trileptal] Penicillins Allergy Anaphylaxis Verified 06/14/22 18:36 phenytoin [From Dilantin] Allergy Anaphylaxis Verified 06/14/22 18:36 propoxyphene Allergy Anaphylaxis Verified 06/14/22 18:36 [From Darvocet-N] Sulfa (Sulfonamide Allergy Anaphylaxis Verified 06/14/22 18:36 Antibiotics) trimethobenzamide Allergy Unknown Verified 06/14/22 18:36 [From Tigan] potassium chloride AdvReac Chest Pain Verified 06/14/22 18:36 Review of Systems ROS Statement: Those systems with pertinent positive or pertinent negative responses have been documented in the HPI. ROS Other: All systems not noted in ROS Statement are negative. EKG Findings - EKG Comments: EKG Findings:: EKG demonstrates sinus bradycardia with a rate of 54. OK interval 279. QRS 120. QTC of 428. There is a left bundle branch block. No acute ST segment elevations or depressions Past Medical History Past Medical History: Chest Pain / Angina, CVA/TIA, GERD/Reflux, Hyperlipidemia, Hypertension, Thyroid Disorder Additional Past Medical History / Comment(s): TIA in 2007 and 2010, Mitral Valve prolapse, hypothyroid. macular degen History of Any Multi-Drug Resistant Organisms: None Reported Past Surgical History: Hysterectomy, Joint Replacement, Tonsillectomy Additional Past Surgical History / Comment(s): bilateral knee, cataract removal left and right eye, temporal artery biopsy, hysterectomy Past Anesthesia/Blood Transfusion Reactions: No Reported Reaction Past Psychological History: Anxiety Smoking Status: Never smoker Past Alcohol Use History: None Reported Past Drug Use History: None Reported General Exam Limitations: no limitations General appearance: alert, in no apparent distress Head exam: Present: atraumatic, normocephalic, normal inspection Eye exam: Present: normal appearance, PERRL, EOMI. Absent: scleral icterus, conjunctival injection, periorbital swelling ENT exam: Present: normal exam, mucous membranes moist Neck exam: Present: normal inspection. Absent: tenderness, meningismus, lym phadenopathy Respiratory exam: Present: normal lung sounds bilaterally. Absent: respiratory distress, wheezes, rales, rhonchi, stridor Cardiovascular Exam: Present: regular rate, normal rhythm, normal heart sounds. Absent: systolic murmur, diastolic murmur, rubs, gallop, clicks GI/Abdominal exam: Present: soft, normal bowel sounds. Absent: distended, tenderness, guarding, rebound, rigid Extremities exam: Present: normal inspection, full ROM, normal capillary refill. Absent: tenderness, pedal edema, joint swelling, calf tenderness Back exam: Present: normal inspection Neurological exam: Present: alert, oriented X3, CN II-XII intact Psychiatric exam: Present: normal affect, normal mood Skin exam: Present: warm, dry, intact, normal color. Absent: rash Course Vital Signs 06/14/22 06/14/22 06/14/22 17:26 19:20 20:10 Temperature 98.3 F 98.6 F Pulse Rate 57 L 51 L 50 L Respiratory 20 16 18 Rate Blood Pressure 180/89 180/89 100/89 O2 Sat by Pulse 95 94 L 98 Oximetry Chest Pain MDM - MDM Was pt. sent in by a medical professional or institution (, PA, DISTRIBUTION ESTIMATOR, urgent care, hospital, or [facility]...) When possible be specific @ -No Did you speak to anyone other than the patient for history (EMS, parent, family, police, friend...)? What history was obtained from this source @ -daughter Did you review nursing and triage notes (agree or disagree)? Why? @ -I reviewed and agree with nursing and triage notes Were old charts reviewed (outside hosp., previous admission, EMS record, old EKG, old radiological studies, urgent care reports/EKG's, [facility] records)? Report findings @ -I reviewed the patients previous hospitalizations for chest pain Differential Diagnosis (chest pain, altered mental status, abdominal pain women, abdominal pain men, vaginal bleeding, weakness, fever, dyspnea, syncope, headache, dizziness, GI bleed, back pain, seizure, CVA, palpatations, mental health, musculoskeletal)? @ -gastritis, GERD, medication reaction, acs EKG interpreted by me (3pts min.). @ -yes X-rays interpreted by me (1pt min.). @ -yes CT interpreted by me (1pt min.). @ -None done U/S interpreted by me (1pt. min.). @ -None done What testing was considered but not performed or refused? (CT, X-rays, U/S, labs)? Why? @ -None What meds were considered but not given or refused? Why? @ -None Did you discuss the management of the patient with other professionals (professionals i.e. , PA, DISTRIBUTION ESTIMATOR, lab, RT, psych nurse, nursing home social worker, edge inker heels, teacher, contact officer, case picker)? Give summary @ -No Was smoking cessation discussed for >3mins.? @ -No Was critical care preformed (if so, how long)? @ -No Were there social determinants of health that impacted care today? How? (Homelessness, low income, unemployed, alcoholism, drug addiction, transportation, low edu. Level, literacy, decrease access to med. care, skilled nursing, rehab)? @ -No Was there de-escalation of care discussed even if they declined (Discuss DNR or withdrawal of care, Hospice)? DNR status @ -No What co-morbidities impacted this encounter? (DM, HTN, Smoking, COPD, CAD, Cancer, CVA, ARF, Chemo, Hep., AIDS, mental health diagnosis, sleep apnea, morbid obesity)? @ -None Was patient admitted / discharged? Hospital course, mention meds given and route, prescriptions, significant lab abnormalities, going to OR and other pertinent info. @ -Upon arrival patient was placed into room 1. Thorough history and physical exam was performed. I did review the patient's previous visits. Laboratory studies are conducted and reviewed. Troponin is negative. Patient was given a dose of protonic. She does have some improvement in her symptoms. Called and spoke with Dr. Miner in regards to symptoms. He states he'll see the patient tomorrow in office. Patient is made aware of this. Instructed to return for any new or worsening symptoms. Continue taking medications as directed. Patient agreeable and discharged home in stable condition Undiagnosed new problem with uncertain prognosis? @ -No Drug Therapy requiring intensive monitoring for toxicity (Heparin, Nitro, Insulin, Cardizem)? @ -No Were any procedures done? @ -No Diagnosis/symptom? @ -acute epigastric abd pain, possible medication reaction Acute, or Chronic, or Acute on Chronic? @ -acute Uncomplicated (without systemic symptoms) or Complicated (systemic symptoms)? @ -complicated Side effects of treatment? @ -Allergic reaction, sedation Exacerbation, Progression, or Severe Exacerbation? @ -No Poses a threat to life or bodily function? How? (Chest pain, [place], [place], pneumonia, PE, COPD, DKA, ARF, appy, cholecystitis, CVA, Diverticulitis, Homicidal, Suicidal, threat to staff... and all critical care pts) @ -No 7 Disposition Clinical Impression: Chest pain Disposition: HOME SELF-CARE Condition: Stable Instructions (If sedation given, give patient instructions): Chest Pain (ED) Additional Instructions: Please call Dr. Miner's office in the morning. He is aware that you were in the ER. Return for any new or worsening symptoms. Continue taking your medications as directed Is patient prescribed a controlled substance at d/c from ED?: No Referrals: José Miguel Miner DO [Primary Care Provider] - 1-2 days Time of Disposition: 19:48
[2022-06-14 17:59] LABS: Partial Thromboplastin Time 27.3 sec (22.0-30.0); Prothrombin Time 10.8 sec (9.0-12.0)
[2022-06-14 18:08] LABS: ALT 41 U/L (4-34); AST 40 U/L (14-36); African American GFR (CKD) >90 (>60 ml/min/1.73 sqM); Albumin 3.8 g/dL (3.5-5.0); Alkaline Phosphatase 130 U/L (38-126); Anion Gap 8 mmol/L; Blood Urea Nitrogen 16 mg/dL (7-17); Calcium 8.7 mg/dL (8.4-10.2); Carbon Dioxide 29 mmol/L (22-30); Chloride 94 mmol/L (98-107); Glucose 94 mg/dL (74-99); Lipase 107 U/L (23-300); Non-African American GFR(CKD) 89 (>60 ml/min/1.73 sqM); Potassium 4.6 mmol/L (3.5-5.1); Sodium 131 mmol/L (137-145); Total Bilirubin 0.5 mg/dL (0.2-1.3); Total Protein 7.4 g/dL (6.3-8.2)
[2022-06-14 18:09] LABS: Basophils % (A) 0 %; Eosinophils # (A) 0.1 k/uL (0-0.7); Eosinophils % (A) 3 %; HCT 39.7 % (34.0-46.0); HGB 13.7 gm/dL (11.4-16.0); Lymphocytes # (A) 0.9 k/uL (1.0-4.8); Lymphocytes % (A) 22 %; MCH 30.5 pg (25.0-35.0); MCHC 34.5 g/dL (31.0-37.0); MCV 88.4 fL (80.0-100.0); Mean Platelet Volume 8.6; Monocytes # (A) 0.3 k/uL (0-1.0); Monocytes % (A) 8 %; Neutrophils # (A) 2.7 k/uL (1.3-7.7); Neutrophils % (A) 64 %; RDW 14.8 % (11.5-15.5); WBC 4.3 k/uL (3.8-10.6)
--- NOTE | 2022-06-14 18:09 | XR ---
EXAMINATION TYPE: XR chest 2V DATE OF EXAM: 06/14/2022 COMPARISON: Chest x-ray May 25, 2022. HISTORY: Chest pain. TECHNIQUE: Frontal and lateral views of the chest are obtained. FINDINGS: There is cardiomegaly without suspicious focal airspace opacity, pleural effusion, pneumot horax seen. The osseous structures are intact. IMPRESSION: Cardiomegaly without acute pulmonary process. No significant change from prior.
[2022-06-14 18:27] LABS: Large Platelets Present
[2022-06-14 18:28] LABS: Platelet Count 98 k/uL (150-450)
[2022-06-14] MEDS ORDERED: PANTOPRAZOLE 40 MG/10 ML VIAL IVP STA (18:45)
[2022-06-14 20:11] VITALS: BP 100/89; PULSE 50; RESP 18; TEMP 98.6
== END 2022-06-14 20:27 | disposition home or self-care (01) ==
LOC: EC 17:22
DX: R07.89 Other chest pain (principal); I10 Essential (primary) hypertension; K21.9 Gastro-esophageal reflux disease without esophagitis; E03.9 Hypothyroidism, unspecified; Z79.890 Hormone replacement therapy; Z79.899 Other long term (current) drug therapy; Z86.73 Personal history of transient ischemic attack (TIA), and cerebral infarction without residual deficits; Z88.0 Allergy status to penicillin; Z88.1 Allergy status to other antibiotic agents; Z88.2 Allergy status to sulfonamides; Z88.5 Allergy status to narcotic agent; Z88.6 Allergy status to analgesic agent; Z88.8 Allergy status to other drugs, medicaments and biological substances; Z91.041 Radiographic dye allergy status
CPT/HCPCS: 36415; 93005; 83880; 80053; 83690; 83735; 84484; 85025; 85610; 85730; 71046; 99285; 96374; C9113

== ENCOUNTER 2022-08-02 08:41 | Inpatient (IN) | payer MEDICARE ==
[2022-08-02 09:09] LABS: Basophils % (A) 0 %; Eosinophils # (A) 0.1 k/uL (0-0.7); Eosinophils % (A) 2 %; HCT 45.4 % (34.0-46.0); HGB 15.1 gm/dL (11.4-16.0); Lymphocytes % (A) 18 %; MCH 30.6 pg (25.0-35.0); MCHC 33.3 g/dL (31.0-37.0); MCV 91.9 fL (80.0-100.0); Mean Platelet Volume 7.7; Monocytes # (A) 0.4 k/uL (0-1.0); Monocytes % (A) 7 %; Neutrophils # (A) 3.9 k/uL (1.3-7.7); Neutrophils % (A) 71 %; Platelet Count 106 k/uL (150-450); RBC 4.94 m/uL (3.80-5.40); RDW 14.7 % (11.5-15.5); WBC 5.5 k/uL (3.8-10.6)
--- NOTE | 2022-08-02 09:17 | ED ---
General Adult HPI - General Chief complaint: Neuro Symptoms/Deficit Stated complaint: neuro symp Time Seen by Provider: 08/02/22 08:58 Source: patient, family, RN notes reviewed, old records reviewed Mode of arrival: ambulatory Limitations: no limitations - History of Present Illness Initial comments: Patient is an 82-year-old female presents with Department complaining of neuro symptoms. Brought in by her daughter for acting differently this morning and complaining of neuro symptoms. Last known well was last night when daughter spoke with her at about 10. Patiently she went to bed around midnight and does not recall when she started having symptoms but awoke at 7:30 this morning with the symptoms. Symptoms include confused speech, mild right-sided facial droop, right arm numbness that is improving. She does have a history of TIAs. No re sidual deficits. Previously was on Plavix. Listed ALLERGY includes potential anaphylactic reactions to contrast iodine as well as glucocorticoids. Presents for further evaluation at this time. Denies chest pain or shortness of breath. Appears confused. Distal endorsing any symptoms. Is not on blood thinners. No trauma. - Related Data Home Medications Medication Instructions Recorded Confirmed ALPRAZolam [Xanax] 0.5 mg PO DAILY PRN 03/22/18 08/02/22 Pantoprazole [Protonix] 40 mg PO DAILY 03/22/18 08/02/22 Vit C/E/Zn/Coppr/Lutein/Zeaxan 1 cap PO DAILY 03/22/18 08/02/22 [Preservision Areds 2 Softgel] Cholecalciferol [Vitamin D3 (25 25 mcg PO DAILY 05/21/22 08/02/22 Mcg = 1000 Iu)] Levothyroxine Sodium [Synthroid] 125 mcg PO DAILY 05/21/22 08/02/22 Losartan Potassium 100 mg PO DAILY 05/21/22 08/02/22 Aspirin EC [Ecotrin Low Dose] 81 mg PO DAILY 08/02/22 08/02/22 Atorvastatin [Lipitor] 20 mg PO DAILY 08/02/22 08/02/22 Propranolol LA [Inderal LA] 80 mg PO DAILY 08/02/22 08/02/22 diphenhydrAMINE HCL [Benadryl] 25 mg PO Q4H PRN 08/02/22 08/02/22 Allergies Allergy/AdvReac Type Severity Reaction Status Date / Time acetaminophen Allergy Anaphylaxis Verified 08/02/22 09:08 [From Darvocet-N] amoxicillin [From Augmentin] Allergy Anaphylaxis Verified 08/02/22 09:08 clavulanic acid Allergy Anaphylaxis Verified 08/02/22 09:08 [From Augmentin] codeine Allergy Unknown Verified 08/02/22 09:08 [From Tylenol-Codeine #3] Corticosteroids Allergy Anaphylaxis Verified 08/02/22 09:08 (Glucocorticoids) erythromycin base Allergy Unknown Verified 08/02/22 09:08 gabapentin Allergy Anaphylaxis Verified 08/02/22 09:08 Gadolinium-Containing Allergy Unknown Verified 08/02/22 09:08 Contrast Medi Iodinated Contrast Media Allergy Unknown Verified 08/02/22 09:08 levofloxacin [From Levaquin] Allergy Anaphylaxis Verified 08/02/22 09:08 naproxen [From Aleve] Allergy Swelling Verified 08/02/22 09:08 oxcarbazepine Allergy Anaphylaxis Verified 08/02/22 09:08 [From Trileptal] Penicillins Allergy Anaphylaxis Verified 08/02/22 09:08 phenytoin [From Dilantin] Allergy Anaphylaxis Verified 08/02/22 09:08 propoxyphene Allergy Anaphylaxis Verified 08/02/22 09:08 [From Darvocet-N] Sulfa (Sulfonamide Allergy Anaphylaxis Verified 08/02/22 09:08 Antibiotics) trimethobenzamide Allergy Unknown Verified 08/02/22 09:08 [From Tigan] potassium chloride AdvReac Chest Pain Verified 08/02/22 09:08 Review of Systems ROS Statement: Those systems with pertinent positive or pertinent negative responses have been documented in the HPI. Review of Systems: CONST: Denies fever EYES: Denies blurry vision ENT: Denies nasal congestion C/V: Denies Chest pain RESP: Denies shortness of breath GI: Denies abdominal pain : Denies dysuria SKIN: Denies rash. MSK: Denies joint pain. NEURO: Endorses right-sided numbness, confusion ROS Other: All systems not noted in ROS Statement are negative. Past Medical History Past Medical History: Chest Pain / Angina, CVA/TIA, GERD/Reflux, Hyperlipidemia, Hypertension, Thyroid Disorder Additional Past Medical History / Comment(s): TIA in 2007 and 2010, Mitral Valve prolapse, hypothyroid. macular degen History of Any Multi-Drug Resistant Organisms: None Reported Past Surgical History: Hysterectomy, Joint Replacement, Tonsillectomy Additional Past Surgical History / Comment(s): bilateral knee, cataract removal left and right eye, temporal artery biopsy, hysterectomy Past Anesthesia/Blood Transfusion Reactions: No Reported Reaction Past Psychological History: Anxiety Smoking Status: Never smoker Past Alcohol Use History: None Reported Past Drug Use History: None Reported General Exam - General Exam Comments Initial Comments: General: Appears in no acute distress. HEAD: Normal with no signs of head trauma. 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 Pupils are otherwise reactive to light. EOMI. Visual burgess are intact. ENT: Hearing grossly intact, normal oropharynx. RESPIRATORY: Clear breath sounds bilaterally. No wheezes, rales, or rhonchi. C/V: Regular rate and rhythm. S1 and S2 auscultated, peripheral pulses 2+ and intact throughout ABD: Abd is soft, nontender, nondistended EXT: Normal range of motion, no obvious deformity SKIN: No rashes or lesions observed on exposed skin. NEURO: Alert and oriented 2-3. NIH is 5, for incorrect month 1 point, minor right-sided facial palsy with smile asymmetry 1 point, mild sensory deficits no isolated to the right forearm and hand 1 point, aphasia as she cannot identify materials, with some fragmentary expression 1 points, dysarthria 1 point. Limitations: no limitations Course Vital Signs 08/02/22 08/02/22 08/02/22 08:42 08:55 09:00 Temperature 96.1 F L 98.0 F Pulse Rate 59 L 60 58 L Respiratory 18 18 16 Rate Blood Pressure 183/85 203/107 190/98 O2 Sat by Pulse 97 96 97 Oximetry 08/02/22 08/02/22 08/02/22 09:15 09:30 09:45 Temperature 97.9 F 97.9 F 97.9 F Pulse Rate 61 57 L 58 L Respiratory 16 16 16 Rate Blood Pressure 200/114 189/94 183/105 O2 Sat by Pulse 97 97 97 Oximetry 08/02/22 08/02/22 08/02/22 10:00 10:15 10:30 Temperature 98.0 F 98.0 F 98.0 F Pulse Rate 56 L 58 L 56 L Respiratory 16 16 16 Rate Blood Pressure 181/84 188/86 171/81 O2 Sat by Pulse 97 97 97 Oximetry 08/02/22 08/02/22 08/02/22 10:45 11:00 11:15 Temperature 98.0 F 98.0 F 98 F Pulse Rate 56 L 56 L 58 L Respiratory 16 16 16 Rate Blood Pressure 176/91 179/86 185/101 O2 Sat by Pulse 97 97 97 Oximetry 08/02/22 08/02/22 08/02/22 12:15 12:45 13:15 Temperature Pulse Rate 51 L 52 L 50 L Respiratory 18 18 18 Rate Blood Pressure 177/84 180/86 170/72 O2 Sat by Pulse 94 L 92 L 94 L Oximetry 08/02/22 13:45 Temperature 98.0 F Pulse Rate 51 L Respiratory 16 Rate Blood Pressure 154/74 O2 Sat by Pulse 98 Oximetry Medical Decision Making - Medical Decision Making Was pt. sent in by a medical professional or institution (, PA, PERSONAL FINANCIAL REPRESENTATIVE, urgent care, hospital, or usp...) When possible be specific @ -No Did you speak to anyone other than the patient for history (EMS, parent, family, police, friend...)? What history was obtained from this source @ -Yes, patient's daughter who is at bedside provides most of the history. Did you review nursing and triage notes (agree or disagree)? Why? @ -I reviewed and agree with nursing and triage notes Were old charts reviewed (outside hosp., previous admission, EMS record, old EKG, old radiological studies, urgent care reports/EKG's, usp records)? Report findings @ -No old charts were reviewed Differential Diagnosis (chest pain, altered mental status, abdominal pain women, abdominal pain men, vaginal bleeding, weakness, fever, dyspnea, syncope, headache, dizziness, GI bleed, back pain, seizure, CVA, palpatations, mental health, musculoskeletal)? @ -Differential CVA Ischemic stroke, hemorrhagic stroke, brain tumor, atypical migraine, Wernicke's encephalopathy, seizure, multiple sclerosis, meningitis, encephalitis, hypoglycemia, Guillain-Davila, electrolytes disturbance, myasthenia gravis.... This is not meant to be an all-inclusive list EKG interpreted by me (3pts min.). @ -As above X-rays interpreted by me (1pt min.). @ -Chest x-ray shows no obvious acute cardio pulmonary process. CT interpreted by me (1pt min.). @ -CT brain showed no obvious acute intracranial process. CT angiogram of the brain revealed no obvious stenosis or intracranial process. Patient does have some carotid stenosis. U/S interpreted by me (1pt. min.). @ -None done What testing was considered but not performed or refused? (CT, X-rays, U/S, labs)? Why? @ -CTA initially refused the patient's daughter who is at bedside as there is concern for anaphylactic reaction to contrast iodine. Does not sound anaphylactic to me as the patient states she becomes warm and uncomfortable. When she has received steroids in the past, which is a part of the pretreatment to obtain this imaging she also had similar reactions in patient's daughter's concern for possible anaphylaxis and would like to talk with other family members prior to administering these medications to obtain the contrast CT. Therefore CT without contrast will be obtained initially. After extensive discussion, there was a delay in administering but we did obtained CTA and administer these pre-medications. What meds were considered but not given or refused? Why? @ -Iodine contrast allergy pre treatment, but this was held due to initial concern for possible anaphylaxis to steroids. After extensive discussion, there was a delay in administering but we did obtained CTA and administer these medications. Did you discuss the management of the patient with other professionals (professionals i.e. , PA, PERSONAL FINANCIAL REPRESENTATIVE, lab, RT, psych nurse, social and political studies professor, interactive web developer, teacher, chief lifestyle officer, case monitor)? Give summary @ -Discussed with the neuro critical care Dr. lewis at 1140, who was in agreement with plan for medical management. Discussed with the admitting physician, Dr. Miner who accepted the patient. Was smoking cessation discussed for >3mins.? @ -No Was critical care preformed (if so, how long)? @ -Yes, 35 minutes. Were there social determinants of health that impacted care today? How? (Homelessness, low income, unemployed, alcoholism, drug addiction, transportation, low edu. Level, literacy, decrease access to med. care, nursing home, rehab)? @ -No Was there de-escalation of care discussed even if they declined (Discuss DNR or withdrawal of care, Hospice)? DNR status @ -No What co-morbidities impacted this encounter? (DM, HTN, Smoking, COPD, CAD, Cancer, CVA, ARF, Chemo, Hep., AIDS, mental health diagnosis, sleep apnea, morbid obesity)? @ -Hypertension, history of TIA with no residual deficits Was patient admitted / discharged? Hospital course, mention meds given and route, prescriptions, significant lab abnormalities, going to OR and other pertinent info. @ -Based on the patient's presentation and physical exam, I'm concerned for CVA. Last known well was last night and this was a wake up stroke. Patient is not a TPA candidate as benefits are far outweighed by the risks at this point. Stroke pager will be activated. We will obtain CT imaging of the brain and hold the CTA for now. We will obtain stroke workup. Stroke at work was notified. Vital signs within acceptable limits except for mild hypertension. Family and patient were in agreement this plan. NIH is 5.Stroke network paged at [phone]. After further discussion with family members after CT brain was obtained, we'll determined that based on their stories it does not appear that the patient had anaphylactic reactions to iodine contrast or steroids but she did have some form of relaxant amiodarone comfortable. I did recommend that we do administer these due to her symptoms and she was in as well as family in agreement with the plan. Patient was therefore given the premeds for iodine contrast ALLERGY including Benadryl, Solu-Medrol, famotidine. We will obtain CT angiogram of the head and neck at this time. This did delay the CTA, however it is due to discussion with family members to ensure there is no anaphylactic reactions to these medications. CT imaging unremarkable for any evidence of acute stroke. Chest x-ray unrem arkable for any obvious acute cardio pulmonary process. EKG shows no signs of acute ischemia. Patient's labs are remarkable for an undetectable troponin. Slight chronic elevated LFTs, alk phos that are minimally elevated. Ammonia is negative. Remainder of the labs are within acceptable limits, with mild increase carbon dioxide of 33. On reevaluation, patient's symptoms are relatively unchanged. I discussed with the patient's son and patient. She'll be admitted to the hospital for neurolo gical evaluation. We'll restart the patient's Plavix and she will be given aspirin. Family was in agreement with this plan. Dr. Lewis callback at 1140 after we paged the stroke at work again at 1047. She was in agreement with this plan. I spoke with the accepting physician, Dr. Miner who accepted the patient. Neurology was consulted. Undiagnosed new problem with uncertain prognosis? @ -No Drug Therapy requiring intensive monitoring for toxicity (Heparin, Nitro, Insulin, Cardizem)? @ -No Were any procedures done? @ -No Diagnosis/symptom? @ -CVA Acute, or Chronic, or Acute on Chronic? @ -Acute Uncomplicated (without systemic symptoms) or Complicated (systemic symptoms)? @ -Complicated Side effects of treatment? @ -none Exacerbation, Progression, or Severe Exacerbation] @ -no Poses a threat to life or bodily function? @ -Yes - Lab Data Result diagrams: 08/02/22 09:00 08/02/22 09:00 Lab Results 08/02/22 08/02/22 08/02/22 Range/Units 08:57 09:00 09:00 WBC 5.5 (3.8-10.6) k/uL RBC 4.94 (3.80-5.40) m/uL Hgb 15.1 (11.4-16.0) gm/dL Hct 45.4 (34.0-46.0) % MCV 91.9 (80.0-100.0) fL MCH 30.6 (25.0-35.0) pg MCHC 33.3 (31.0-37.0) g/dL RDW 14.7 (11.5-15.5) % Plt Count 106 L (150-450) k/uL MPV 7.7 Neutrophils % 71 % Lymphocytes % 18 % Monocytes % 7 % Eosinophils % 2 % Basophils % 0 % Neutrophils # 3.9 (1.3-7.7) k/uL Lymphocytes # 1.0 (1.0-4.8) k/uL Monocytes # 0.4 (0-1.0) k/uL Eosinophils # 0.1 (0-0.7) k/uL Basophils # 0.0 (0-0.2) k/uL PT 10.6 (9.0-12.0) sec INR 1.0 (<1.2) APTT 27.3 (22.0-30.0) sec Sodium (137-145) mmol/L Potassium (3.5-5.1) mmol/L Chloride (98-107) mmol/L Carbon Dioxide (22-30) mmol/L Anion Gap mmol/L BUN (7-17) mg/dL Creatinine (0.52-1.04) mg/dL Est GFR (CKD-EPI)AfAm (>60 ml/min/1.73 sqM) Est GFR (CKD-EPI)NonAf (>60 ml/min/1.73 sqM) Glucose (74-99) mg/dL POC Glucose (mg/dL) 115 H (70-110) mg/dL POC Glu Chemical Etch Operator ID Frantz Aponte Calcium (8.4-10.2) mg/dL Total Bilirubin (0.2-1.3) mg/dL AST (14-36) U/L ALT (4-34) U/L Alkaline Phosphatase (38-126) U/L Ammonia (<30) umol/L Creatine Kinase (30-135) U/L Troponin I (0.000-0.034) ng/mL Total Protein (6.3-8.2) g/dL Albumin (3.5-5.0) g/dL Urine Color Urine Appearance (Clear) Urine pH (5.0-8.0) Ur Specific [place] (1.001-1.035) Urine Protein (Negative) Urine Glucose (UA) (Negative) Urine Ketones (Negative) Urine Blood (Negative) Urine Nitrite (Negative) Urine Bilirubin (Negative) Urine Urobilinogen (<2.0) mg/dL Ur Leukocyte Esterase (Negative) Urine Opiates Screen (NotDetected) Ur Oxycodone Screen (NotDetected) Urine Methadone Screen (NotDetected) Ur Propoxyphene Screen (NotDetected) Ur Barbiturates Screen (NotDetected) U Tricyclic Antidepress (NotDetected) Ur Phencyclidine Scrn (NotDetected) Ur Amphetamines Screen (NotDetected) U Methamphetamines Scrn (NotDetected) U Benzodiazepines Scrn (NotDetected) Urine Cocaine Screen (NotDetected) U Marijuana (THC) Screen (NotDetected) 08/02/22 08/02/22 08/02/22 Range/Units 09:00 09:00 09:49 WBC (3.8-10.6) k/uL RBC (3.80-5.40) m/uL Hgb (11.4-16.0) gm/dL Hct (34.0-46.0) % MCV (80.0-100.0) fL MCH (25.0-35.0) pg MCHC (31.0-37.0) g/dL RDW (11.5-15.5) % Plt Count (150-450) k/uL MPV Neutrophils % % Lymphocytes % % Monocytes % % Eosinophils % % Basophils % % Neutrophils # (1.3-7.7) k/uL Lymphocytes # (1.0-4.8) k/uL Monocytes # (0-1.0) k/uL Eosinophils # (0-0.7) k/uL Basophils # (0-0.2) k/uL PT (9.0-12.0) sec INR (<1.2) APTT (22.0-30.0) sec Sodium 131 L (137-145) mmol/L Potassium 4.2 (3.5-5.1) mmol/L Chloride 90 L (98-107) mmol/L Carbon Dioxide 33 H (22-30) mmol/L Anion Gap 8 mmol/L BUN 13 (7-17) mg/dL Creatinine 0.59 (0.52-1.04) mg/dL Est GFR (CKD-EPI)AfAm >90 (>60 ml/min/1.73 sqM) Est GFR (CKD-EPI)NonAf 87 (>60 ml/min/1.73 sqM) Glucose 126 H (74-99) mg/dL POC Glucose (mg/dL) (70-110) mg/dL POC Glu Chemical Etch Operator ID Calcium 9.0 (8.4-10.2) mg/dL Total Bilirubin 0.6 (0.2-1.3) mg/dL AST 52 H (14-36) U/L ALT 45 H (4-34) U/L Alkaline Phosphatase 147 H (38-126) U/L Ammonia (<30) umol/L Creatine Kinase 39 (30-135) U/L Troponin I <0.012 (0.000-0.034) ng/mL Total Protein 8.1 (6.3-8.2) g/dL Albumin 4.2 (3.5-5.0) g/dL Urine Color Light Yellow Urine Appearance Clear (Clear) Urine pH 8.0 (5.0-8.0) Ur Specific [place] 1.007 (1.001-1.035) Urine Protein Negative (Negative) Urine Glucose (UA) Negative (Negative) Urine Ketones Negative (Negative) Urine Blood Negative (Negative) Urine Nitrite Negative (Negative) Urine Bilirubin Negative (Negative) Urine Urobilinogen <2.0 (<2.0) mg/dL Ur Leukocyte Esterase Negative (Negative) Urine Opiates Screen Not Detected (NotDetected) Ur Oxycodone Screen Not Detected (NotDetected) Urine Methadone Screen Not Detected (NotDetected) Ur Propoxyphene Screen Not Detected (NotDetected) Ur Barbiturates Screen Not Detected (NotDetected) U Tricyclic Antidepress Not Detected (NotDetected) Ur Phencyclidine Scrn Not Detected (NotDetected) Ur Amphetamines Screen Not Detected (NotDetected) U Methamphetamines Scrn Not Detected (NotDetected) U Benzodiazepines Scrn Detected H (NotDetected) Urine Cocaine Screen Not Detected (NotDetected) U Marijuana (THC) Screen Not Detected (NotDetected) 08/02/22 Range/Units 11:28 WBC (3.8-10.6) k/uL RBC (3.80-5.40) m/uL Hgb (11.4-16.0) gm/dL Hct (34.0-46.0) % MCV (80.0-100.0) fL MCH (25.0-35.0) pg MCHC (31.0-37.0) g/dL RDW (11.5-15.5) % Plt Count (150-450) k/uL MPV Neutrophils % % Lymphocytes % % Monocytes % % Eosinophils % % Basophils % % Neutrophils # (1.3-7.7) k/uL Lymphocytes # (1.0-4.8) k/uL Monocytes # (0-1.0) k/uL Eosinophils # (0-0.7) k/uL Basophils # (0-0.2) k/uL PT (9.0-12.0) sec INR (<1.2) APTT (22.0-30.0) sec Sodium (137-145) mmol/L Potassium (3.5-5.1) mmol/L Chloride (98-107) mmol/L Carbon Dioxide (22-30) mmol/L Anion Gap mmol/L BUN (7-17) mg/dL Creatinine (0.52-1.04) mg/dL Est GFR (CKD-EPI)AfAm (>60 ml/min/1.73 sqM) Est GFR (CKD-EPI)NonAf (>60 ml/min/1.73 sqM) Glucose (74-99) mg/dL POC Glucose (mg/dL) (70-110) mg/dL POC Glu Chemical Etch Operator ID Calcium (8.4-10.2) mg/dL Total Bilirubin (0.2-1.3) mg/dL AST (14-36) U/L ALT (4-34) U/L Alkaline Phosphatase (38-126) U/L Ammonia <9 (<30) umol/L Creatine Kinase (30-135) U/L Troponin I (0.000-0.034) ng/mL Total Protein (6.3-8.2) g/dL Albumin (3.5-5.0) g/dL Urine Color Urine Appearance (Clear) Urine pH (5.0-8.0) Ur Specific [place] (1.001-1.035) Urine Protein (Negative) Urine Glucose (UA) (Negative) Urine Ketones (Negative) Urine Blood (Negative) Urine Nitrite (Negative) Urine Bilirubin (Negative) Urine Urobilinogen (<2.0) mg/dL Ur Leukocyte Esterase (Negative) Urine Opiates Screen (NotDetected) Ur Oxycodone Screen (NotDetected) Urine Methadone Screen (NotDetected) Ur Propoxyphene Screen (NotDetected) Ur Barbiturates Screen (NotDetected) U Tricyclic Antidepress (NotDetected) Ur Phencyclidine Scrn (NotDetected) Ur Amphetamines Screen (NotDetected) U Methamphetamines Scrn (NotDetected) U Benzodiazepines Scrn (NotDetected) Urine Cocaine Screen (NotDetected) U Marijuana (THC) Screen (NotDetected) - EKG Data -: EKG Interpreted by Me EKG Comments: 12-lead Electrocardiogram Interpretation Note EKG was reviewed and interpreted by myself. 12-lead ECG performed at 0900 is interpreted by me as revealing sinus bradycardia with first-degree AV block. At a rate of 57 beats per minute. Left axis deviation. MA intervals 264 ms, QRS duration is 136 ms, QTc is 422 ms. Left bundle-branch block morphology, chronic. There were no acute ST or T wave abnormalities to suggest myocardial ischemia or injury. R wave progression across the precordium was delayed. by my interpretation this EKG is non-diagnostic for acute ischemia. When compared with EKG from June 2022, no significant change. Critical Care Time Critical Care Time: Yes Total Critical Care Time: 35 Disposition Clinical Impression: CVA (cerebral vascular accident) Disposition: ADMITTED IP TO THIS HOSP Condition: Stable Time of Disposition: 11:30
[2022-08-02 09:18] LABS: Partial Thromboplastin Time 27.3 sec (22.0-30.0); Prothrombin Time 10.6 sec (9.0-12.0)
[2022-08-02] MEDS ORDERED: methylPREDNISolone SOD SUCCI 125 MG/2 ML VIAL IV STA (09:21)
[2022-08-02] MEDS ORDERED: FAMOTIDINE 20 MG/2 ML VIAL IV STA (09:21)
[2022-08-02] MEDS ORDERED: diphenhydrAMINE 50 MG/ML 1 ML VIAL IVP STA (09:21)
[2022-08-02 09:30] LABS: ALT 45 U/L (4-34); AST 52 U/L (14-36); African American GFR (CKD) >90 (>60 ml/min/1.73 sqM); Albumin 4.2 g/dL (3.5-5.0); Alkaline Phosphatase 147 U/L (38-126); Anion Gap 8 mmol/L; Blood Urea Nitrogen 13 mg/dL (7-17); Carbon Dioxide 33 mmol/L (22-30); Chloride 90 mmol/L (98-107); Creatine Kinase 39 U/L (30-135); Glucose 126 mg/dL (74-99); Non-African American GFR(CKD) 87 (>60 ml/min/1.73 sqM); Potassium 4.2 mmol/L (3.5-5.1); Sodium 131 mmol/L (137-145); Total Bilirubin 0.6 mg/dL (0.2-1.3); Total Protein 8.1 g/dL (6.3-8.2)
--- NOTE | 2022-08-02 09:42 | CT ---
EXAMINATION TYPE: CT brain wo con for TPA DATE OF EXAM: 08/02/2022 COMPARISON: 05/21/2022 HISTORY: 82-year-old female urologic deficit, acute, stroke suspected confusion TECHNIQUE: Examination was done in axial plane without intravenous contrast. Coronal and sagittal r econstructions performed. CT DLP: 1104.6 mGycm Automated exposure control for dose reduction was used. FINDINGS: There is no evidence of acute intracranial hemorrhage, acute ischemic changes, mass, mass-effect, or extra-axial fluid collection. There is no effacement of cerebral sulci or basal subarachnoid cister ns. There is no hydrocephalus. There is no midline shift. Cardozo-white matter distinction is preserv ed. Atherosclerotic calcifications within the bilateral carotid siphons extending higher up asymmetricall y within the supraclinoid right ICA, unchanged from prior exam. Moderate mucosal thickening floor of the left maxillary sinus. Mild mucosal thickening throughout the ethmoid air cells. Mastoid air cells are well pneumatized. Rightward nasal septal deviation. Orbits and globes are intact. IMPRESSION: No acute intracranial abnormality seen. [id number] chronic left maxillary and ethmoid sinus disease.
[2022-08-02 09:47] LABS: Glucose,Whole Blood 115 mg/dL (70-110)
[2022-08-02 10:15] LABS: Appearance,Urine Clear (Clear); Bilirubin,Urine Negative (Negative); Blood,Urine Negative (Negative); Color,Urine Light Yellow; Glucose,Urine (UA) Negative (Negative); Ketones,Urine Negative (Negative); Leukocyte Esterase,Urine Negative (Negative); Nitrite,Urine Negative (Negative); Protein,Urine Negative (Negative); Specific Gravity,Urine 1.007 (1.001-1.035); Urobilinogen,Urine <2.0 mg/dL (<2.0)
[2022-08-02 10:24] LABS: Amphetamine Screen,Urine Not Detected (NotDetected); Barbiturate Screen,Urine Not Detected (NotDetected); Benzodiazepines Screen,Urine Detected (NotDetected); Cocaine Screen,Urine Not Detected (NotDetected); Methadone Screen, Urine Not Detected (NotDetected); Opiate Screen,Urine Not Detected (NotDetected); Oxycodone Screen, Urine Not Detected (NotDetected); Phencyclidine Screen,Urine Not Detected (NotDetected); Tricyclic Antidepressant,Urine Not Detected (NotDetected); Urn Cannabinoid Scrn Not Detected (NotDetected)
--- NOTE | 2022-08-02 10:35 | CT ---
EXAMINATION TYPE: CT angio head neck CT DLP: 774.5 mGycm, Automated exposure control for dose reduction was used. DATE OF EXAM: 08/02/2022 10:24 AM COMPARISON: CT same day. CLINICAL INDICATION:Female, 82 years old with history of Neuro deficit, acute, stroke suspected; Conf usion TECHNIQUE: Axially acquired helical CT angiogram of the head and neck was obtained with contrast. Axi al images are supplemented with 3D reconstructions [facility] NASCET criteria used. Contrast used:65 mL of Isovue 370 with IV Contrast, Oral contrast used: None. FINDINGS: CTA HEAD: No evidence of acute intracranial hemorrhage, mass effect, or midline shift. The ventricles, sulci, a nd cisterns are unremarkable. The visualized portions of the internal carotid arteries, middle cerebral arteries, anterior cerebral arteries, and posterior cerebral arteries are patent. Mild atherosclerosis of the internal carotid a rteries cavernous portions on the right with at least The basilar and vertebral arteries are patent. Mild atherosclerosis of the intracranial vertebral art eries with at least 25% stenosis bilaterally. They're codominant vertebral arteries. CTA NECK: Right Carotid System: The common carotid artery and external carotid artery are patent. The carotid bifurcation demonstrate s no evidence of hemodynamically significant stenosis. The remaining portions of the internal carotid artery demonstrate normal size without significant narrowing. Left Carotid System: The common carotid artery and external carotid artery are patent. The carotid bifurcation demonstrate s no evidence of hemodynamically significant stenosis. The remaining portions of the internal carotid artery demonstrate normal size without significant narrowing. Vertebral arteries are patent without evidence hemodynamically significant stenosis. There is a three-vessel aortic arch. The origins of the great vessels are patent. No evidence of hemo dynamically significant stenosis. Upper thorax: Streaky opacities in the lung apices IMPRESSION: 1. No evidence of dissection of the cervical internal carotid arteries or vertebral arteries or any evidence of significant stenosis at the carotid bifurcations. 2. No evidence of intracranial high-grade stenosis or intracranial aneurysm. 3. There is at least 25% stenosis of the vertebral arteries and internal carotid arteries intracrani al portion secondary to calcified plaque. 4. Mild pulmonary edema suggested correlate with serum BNP.
[2022-08-02] MEDS ORDERED: ASPIRIN 325 MG TAB PO STA (10:45)
[2022-08-02] MEDS ORDERED: SODIUM CHLORIDE 0.9% 1,000 ML IV STA (11:24)
[2022-08-02] MEDS ORDERED: NALOXONE 0.4 MG/ML 1 ML VIAL IV PRN (11:41)
[2022-08-02] MEDS ORDERED: CLOPIDOGREL 75 MG TAB PO STA (11:41)
--- NOTE | 2022-08-02 11:54 | XR ---
EXAMINATION TYPE: XR chest 2V DATE OF EXAM: 08/02/2022 COMPARISON: 06/14/2022 HISTORY: 82-year-old female confusion, altered mental status TECHNIQUE: AP and lateral views FINDINGS: Heart mild to moderately enlarged. Moderate diffuse disc prominence is a chronic appearance. No vasiliy consolidation or pleural effusion seen. IMPRESSION: Mild to moderate cardiomegaly. Chronic appearing changes. No definite acute process.
[2022-08-02] MEDS ORDERED: LORazepam 2 MG/ML INJ IV PRN (16:32)
--- NOTE | 2022-08-02 16:34 | P.CNNES ---
History of Present Illness Consult date: 08/02/22 Requesting physician: Mina Rodriguez Reason for Consult: cva vs complex migraine History of Present Illness: This is an 82-year-old woman with history of TIA, recent expressive aphasia close second week of May 2022 suspected office stroke, hypertension, mitral valve prolapse presented because of slurred speech and feeling off. Patient is accompanied with her daughter was at bedside and helps with the history. A ccording to the daughter she was last seen yesterday and nighttime 9 PM and she talked to relative also at nighttime is doing well then she woke up today and unknown what time she woke up and the the daughter felt her speech was slurred the patient just felt off. Daughter felt she is walking slower than normal. Patient denies of any weakness or numbness. She has an old right facial weakness. She is taking aspirin 81 mg daily. In the past she was on Plavix but was discontinued since the daughter stated that she was also many medication was making her fear off and it was unsure which medication was doing that so Plavix was taking off in the past by her primary. Patient denies any history of seizures. Of note, I personally seen the patient our facility towards the second week of May 2022 and she had expressive aphasia and right nasal labial flattening and and I suspected the patient had that acute ischemic stroke. MRI the brain was reported as no acute ischemia subacute ischemia. I personally reviewed that MRI and I felt the patient has questionable small focus frontal parietal cortical region. At that time I started the patient on aspirin and Plavix and after 21 days to be only on Plavix. Please refer to my notes for further details Some of the workup during this hospital consisted of: Ammonia level is less than 9. AST is 52 ALT is 45. Initial serum glucose in the is 126. Sodium is 131. Carotid access 33. CK levels within normal limits. Calcium is within normal limits Urinalysis is negative for urinary tract infection Urine drug screen is positive for benzos. Patient is on Xanax. CT of the head is reported as no acute intracranial abnormality seen. Mild to moderate chronic left maxillary and ethmoid sinus disease. I personally reviewed the CT and agree with the report. CT angiography of the head and neck is reported as no evidence of dissection of the cervical internal carotid arteries or vertebral artery or any evidence of significant stenosis at the carotid bifurcation. No evidence of high-grade intracranial stenosis or intracranial aneurysm. There is at least 25% stenosis of the vertebral arteries and internal carotid arteries intracranial portion second due to calcified plaque. Mild pulmonary edema suggests correlate with serum BNP. Per the ED NIH stroke scale is a 5: Points are for uncorrect month, right facial asymmetry, sensory deficit, aphasia, dysarthria. No IV TPA since the patient is outside the window for and half hours and the risk outweighed the benefit. Review of Systems Review of system: The 12 point system was reviewed and apparent positive and negative per HPI. Past Medical History Past Medical History: Chest Pain / Angina, CVA/TIA, GERD/Reflux, Hyperlipidemia, Hypertension, Thyroid Disorder Additional Past Medical History / Comment(s): TIA in 2007 and 2010, Mitral Valve prolapse, hypothyroid. macular degen History of Any Multi-Drug Resistant Organisms: None Reported Past Surgical History: Hysterectomy, Joint Replacement, Tonsillectomy Additional Past Surgical History / Comment(s): bilateral knee, cataract removal left and right eye, temporal artery biopsy, hysterectomy Past Anesthesia/Blood Transfusion Reactions: No Reported Reaction Past Psychological History: Anxiety Smoking Status: Never smoker Past Alcohol Use History: None Reported Past Drug Use History: None Reported Medications and Allergies Home Medications Medication Instructions Recorded Confirmed Type ALPRAZolam [Xanax] 0.5 mg PO DAILY PRN 03/22/18 08/02/22 History Pantoprazole [Protonix] 40 mg PO DAILY 03/22/18 08/02/22 History Vit C/E/Zn/Coppr/Lutein/Zeaxan 1 cap PO DAILY 03/22/18 08/02/22 History [Preservision Areds 2 Softgel] Cholecalciferol [Vitamin D3 (25 25 mcg PO DAILY 05/21/22 08/02/22 History Mcg = 1000 Iu)] Levothyroxine Sodium [Synthroid] 125 mcg PO DAILY 05/21/22 08/02/22 History Losartan Potassium 100 mg PO DAILY 05/21/22 08/02/22 History Aspirin EC [Ecotrin Low Dose] 81 mg PO DAILY 08/02/22 08/02/22 History Atorvastatin [Lipitor] 20 mg PO DAILY 08/02/22 08/02/22 History Propranolol LA [Inderal LA] 80 mg PO DAILY 08/02/22 08/02/22 History diphenhydrAMINE HCL [Benadryl] 25 mg PO Q4H PRN 08/02/22 08/02/22 History Allergies Allergy/AdvReac Type Severity Reaction Status Date / Time acetaminophen Allergy Anaphylaxis Verified 08/02/22 09:08 [From Darvocet-N] amoxicillin [From Augmentin] Allergy Anaphylaxis Verified 08/02/22 09:08 clavulanic acid Allergy Anaphylaxis Verified 08/02/22 09:08 [From Augmentin] codeine Allergy Unknown Verified 08/02/22 09:08 [From Tylenol-Codeine #3] Corticosteroids Allergy Anaphylaxis Verified 08/02/22 09:08 (Glucocorticoids) erythromycin base Allergy Unknown Verified 08/02/22 09:08 gabapentin Allergy Anaphylaxis Verified 08/02/22 09:08 Gadolinium-Containing Allergy Unknown Verified 08/02/22 09:08 Contrast Medi Iodinated Contrast Media Allergy Unknown Verified 08/02/22 09:08 levofloxacin [From Levaquin] Allergy Anaphylaxis Verified 08/02/22 09:08 naproxen [From Aleve] Allergy Swelling Verified 08/02/22 09:08 oxcarbazepine Allergy Anaphylaxis Verified 08/02/22 09:08 [From Trileptal] Penicillins Allergy Anaphylaxis Verified 08/02/22 09:08 phenytoin [From Dilantin] Allergy Anaphylaxis Verified 08/02/22 09:08 propoxyphene Allergy Anaphylaxis Verified 08/02/22 09:08 [From Darvocet-N] Sulfa (Sulfonamide Allergy Anaphylaxis Verified 08/02/22 09:08 Antibiotics) trimethobenzamide Allergy Unknown Verified 08/02/22 09:08 [From Tigan] potassium chloride AdvReac Chest Pain Verified 08/02/22 09:08 Physical Examination - Vital Signs Vital Signs: Vital Signs Temp Pulse Resp BP Pulse Ox 08/02/22 13:45 98.0 F 51 L 16 154/74 98 08/02/22 13:15 50 L 18 170/72 94 L 08/02/22 12:45 52 L 18 180/86 92 L 08/02/22 12:15 51 L 18 177/84 94 L 08/02/22 11:15 98 F 58 L 16 185/101 97 08/02/22 11:00 98.0 F 56 L 16 179/86 97 08/02/22 10:45 98.0 F 56 L 16 176/91 97 08/02/22 10:30 98.0 F 56 L 16 171/81 97 05/25/23 10:15 98.0 F 58 L 16 188/86 97 08/02/22 10:00 98.0 F 56 L 16 181/84 97 08/02/22 09:45 97.9 F 58 L 16 183/105 97 08/02/22 09:30 97.9 F 57 L 16 189/94 97 08/02/22 09:15 97.9 F 61 16 200/114 97 08/02/22 09:00 58 L 16 190/98 97 08/02/22 08:55 98.0 F 60 18 203/107 96 08/02/22 08:42 96.1 F L 59 L 18 183/85 97 Intake and Output 08/02/22 08/02/22 08/02/22 06:59 14:59 22:59 Other: Weight 92.896 kg GENERAL: The patient is lying in bed and is not in acute distress. CHEST: No edema of lowers. LUNG: Not labored breathing. NEUROLOGICAL: Higher mental function: The patient is awake, alert, oriented to self and place. Patient is following simple commands. She is slow following commands. No aphasia and no neglect. Cranial nerves: The pupils are round, equal and reactive to light. Visual burgess are full to confrontation throughout. Extraocular movement is intact no nystagmus is noted. Facial sensation is normal to touch throughout. Mild right lower facial weakness (old). Hearing is severely decreased bilaterally to hand rub. Tongue is midline and moved [id number] without any difficulty. No dysarthria is noted but patient is hypophonic. Shoulder shrug is normal bilaterally. Motor: The strength is 5 over 5 throughout. Normal tone and bulk. Cerebellum: Normal finger to nose bilaterally. Sensation: Sensation is normal to touch throughout. Reflexes (right/left):1+ throughout. Plantars are mute bilaterally. Results - Laboratory Findings CBC and BMP: 08/02/22 09:00 08/02/22 09:00 Abnormal Lab Findings: Abnormal Labs 08/02/22 08/02/22 08/02/22 08:57 09:00 09:00 Plt Count 106 L Sodium 131 L Chloride 90 L Carbon Dioxide 33 H Glucose 126 H POC Glucose (mg/dL) 115 H AST 52 H ALT 45 H Alkaline Phosphatase 147 H U Benzodiazepines Scrn 08/02/22 09:49 Plt Count Sodium Chloride Carbon Dioxide Glucose POC Glucose (mg/dL) AST ALT Alkaline Phosphatase U Benzodiazepines Scrn Detected H Assessment and Plan Assessment: This is an 82-year-old woman who presents because of worsening slurring of the speech and feeling off Acute dysarthria and on presentation she had numbness, aphasia, some confusion: Likely acute ischemic stroke History of recent suspected stroke near second week of May 2022 in which the patient presented with expressive aphasia as well. The MRI was reported as negative by felt the patient had questionable small focus in the frontal parietal cortical region History of TIA Hypertension History of mitral valve prolapse. Plan: I ordered MRI of the brain without rule out any acute ischemia (ordered Ativan 1mg since wants something to help her calm). I also ordered a routine EEG to rule out any underlying seizure or epileptiform discharges In the ED the patient was given aspirin 325 once a Plavix 75 mg once. I started the patient on aspirin for home dose and in addition start her on Plavix which was discontinued in the past. Start the patient on Lipitor 40 mg daily at bedtime for secondary stroke prophylaxis Ordered 2-D echo. I ordered vitamin B12 folate level to rule out any abnormality causing her generalized weakness Neurochecks Cardiac monitoring PT OT and [employer]OC[employer] are consulted next We'll defer the rest of the medical management to primary team For DVT prophylaxis I started the patient on subcu heparin 5000 units every 12 hours Plan discussed with the patient and her daughter was at bedside Thank you for the consultation Time with Patient: Greater than 30
[2022-08-02] MEDS: HEPARIN SODIUM,PORCINE/PF 5,000 UNIT/0.5 ML SYRINGE SQ SCH (20:44)
[2022-08-02] MEDS: ATORVASTATIN 40 MG TAB PO SCH (20:44)
[2022-08-03 08:30] LABS: Basophils % (A) 0 %; Eosinophils % (A) 0 %; HCT 45.6 % (34.0-46.0); HGB 14.9 gm/dL (11.4-16.0); Lymphocytes # (A) 0.8 k/uL (1.0-4.8); Lymphocytes % (A) 8 %; MCH 30.3 pg (25.0-35.0); MCHC 32.8 g/dL (31.0-37.0); MCV 92.3 fL (80.0-100.0); Mean Platelet Volume 8.3; Monocytes # (A) 0.5 k/uL (0-1.0); Monocytes % (A) 5 %; Neutrophils # (A) 8.4 k/uL (1.3-7.7); Neutrophils % (A) 86 %; Platelet Count 122 k/uL (150-450); RBC 4.94 m/uL (3.80-5.40); RDW 14.7 % (11.5-15.5); WBC 9.8 k/uL (3.8-10.6)
[2022-08-03] MEDS: CLOPIDOGREL 75 MG TAB PO SCH (08:31)
[2022-08-03] MEDS: HEPARIN SODIUM,PORCINE/PF 5,000 UNIT/0.5 ML SYRINGE SQ SCH ×2 (08:31→19:49)
[2022-08-03] MEDS: ASPIRIN 81 MG PO SCH (08:31)
[2022-08-03 08:54] LABS: African American GFR (CKD) >90 (>60 ml/min/1.73 sqM); Anion Gap 8 mmol/L; Blood Urea Nitrogen 18 mg/dL (7-17); Calcium 9.3 mg/dL (8.4-10.2); Carbon Dioxide 29 mmol/L (22-30); Chloride 96 mmol/L (98-107); Glucose 198 mg/dL (74-99); Non-African American GFR(CKD) 85 (>60 ml/min/1.73 sqM); Sodium 133 mmol/L (137-145)
[2022-08-03] MEDS ORDERED: LORazepam 2 MG/ML INJ IV STA (10:51)
[2022-08-03] MEDS ORDERED: ALPRAZolam 0.5 MG TAB PO PRN (11:13)
--- NOTE | 2022-08-03 11:39 | CA ---
Transthoracic Echo Report Name: Bisi Tinsley Age: 82 Gender: F : 1940 Exam Date: 08/03/2022 08:02 Exam Location: [place] [facility] Ht (in): 65 Wt (lb): 204 Ordering Physician: Uche Hinton MD Attending/Referring Phys: Program Evaluation Consultant Edilma Hernandez RDCS Procedure CPT: Indications: limited stroke Cardiac Hx: Technical Quality: Fair Contrast 1: Total Dose (mL): Contrast 2: Total Dose (mL): MEASUREMENTS (Male / Female) Normal Values 2D ECHO LV Diastolic Diameter PLAX 4.3 cm 4.2 - 5.9 / 3.9 - 5.3 cm LV Systolic Diameter PLAX 2.9 cm IVS Diastolic Thickness 1.2 cm 0.6 - 1.0 / 0.6 - 0.9 cm LVPW Diastolic Thickness 1.3 cm 0.6 - 1.0 / 0.6 - 0.9 cm LV Relative Wall Thickness 0.6 RV Internal Dim ED PLAX 2.7 cm LVOT Diameter 2.1 cm LA Systolic Diameter LX 3.1 cm 3.0 - 4.0 / 2.7 - 3.8 cm LA Volume 93.2 cm??? 18 - 58 / 22 - 52 cm??? M-MODE Aortic Root Diameter MM 3.2 cm MV E Point Septal Separation 0.8 cm AV Cusp Separation MM 1.9 cm DOPPLER AV Peak Velocity 221.3 cm/s AV Peak Gradient 19.6 mmHg AV Mean Velocity 153.7 cm/s AV Mean Gradient 10.8 mmHg AV Velocity Time Integral 51.8 cm LVOT Peak Velocity 132.0 cm/s LVOT Peak Gradient 7.0 mmHg AV Area Cont Eq pk 2.1 cm??? MV Area PHT 2.9 cm??? Mitral E Point Velocity 71.5 cm/s Mitral A Point Velocity 107.5 cm/s Mitral E to A Ratio 0.7 MV Deceleration Time 261.4 ms MV E' Velocity 8.3 cm/s Mitral E to MV E' Ratio 8.6 TR Peak Velocity 249.4 cm/s TR Peak Gradient 24.9 mmHg Right Ventricular Systolic Press 29.2 mmHg FINDINGS Left Ventricle Left ventricular ejection fraction is estimated at 55-60 %. Left ventricular cavity size normal. Mildly increased septal wall thickness. Mildly increased posterior wall thickness. Right Ventricle Normal right ventricular size and function. Unable to estimate the right ventricular systolic pressure. Right Atrium Normal right atrial size. Left Atrium Severely increased left atrial volume. Mildly increased left atrial area. Mitral Valve Mitral valve thickened. Mild mitral annular calcification. Aortic Valve Trileaflet aortic valve. Aortic valve sclerosis. Mild aortic stenosis with a peak gradient of 20 mmHg and a mean gradient of 11 mmHg. Tricuspid Valve Structurally normal tricuspid valve. Mild tricuspid regurgitation. Pulmonic Valve Structurally normal pulmonic valve. Trace pulmonic regurgitation. Pericardium Normal pericardium. No pericardial effusion. Aorta Normal size aortic root and proximal ascending aorta. CONCLUSIONS LVH with preserved systolic function Calcific aortic valve with thickened leaflets and mild to moderate aortic stenosis Left atrial enlargement Previewed by: Dr. Mauricio Vargas MD (Electronically Signed) Final Date: 03 Aug 2022 11:38
--- NOTE | 2022-08-03 11:53 | P.PN ---
Subjective Progress Note Date: 08/03/22 She seen at bedside and she is compared with her daughter who states that she's doing drastically much more better and is back to baseline. According to the patient daughter patient has history of migraines and she has followed up recently with a neurologist (Dr. Patel) and has follow-up end of September. Objective - Vital Signs Vital signs: Vital Signs Temp 97.4 F L 08/03/22 08:27 Pulse 68 08/03/22 08:27 Resp 16 08/03/22 08:27 BP 147/70 08/03/22 08:27 Pulse Ox 95 08/03/22 08:27 FiO2 Intake & Output 08/02/22 08/03/22 08/03/22 18:59 06:59 18:59 Intake Total 500 660 Balance 500 660 Weight 92.896 kg 92.896 kg Intake: Oral 500 660 Other: Voiding Method External Catheter External Catheter - Exam Neuro: Patient is awake alert oriented to self place and time. Minimally told to respond but better than yesterday. No aphasia and no neglect. Visual burgess are full to confrontation. Extraocular movements intact and no nystagmus. Mild right facial weakness which is old. No dysarthria Motor: Gait is normal. Strength is 5 out of 5. Some of the workup during this hospital consisted of: Ammonia level is less than 9. AST is 52 ALT is 45. Initial serum glucose in the is 126. Sodium is 131. Carotid access 33. CK levels within normal limits. Calcium is within normal limits Urinalysis is negative for urinary tract infection Vitamin B-12 was 491 Serum folate is 11.3 Ammonia is less than 9. Urine drug screen is positive for benzos. Patient is on Xanax. CT of the head is reported as no acute intracranial abnormality seen. Mild to moderate chronic left maxillary and ethmoid sinus disease. I personally reviewed the CT and agree with the report. CT angiography of the head and neck is reported as no evidence of dissection of the cervical internal carotid arteries or vertebral artery or any evidence of significant stenosis at the carotid bifurcation. No evidence of high-grade intracranial stenosis or intracranial aneurysm. There is at least 25% stenosis of the vertebral arteries and internal carotid arteries intracranial portion second due to calcified plaque. Mild pulmonary edema suggests correlate with serum BNP. The echo was reported as left ventricular hypertrophy with preserved systolic function. Calcific aortic valve with thickened leaflets and mild to moderate aortic valve stenosis. Left atrial enlargement. - Labs CBC & Chem 7: 08/03/22 07:58 08/03/22 07:58 Labs: Abnormal Lab Results - Last 24 Hours (Table) 08/03/22 08/03/22 Range/Units 07:58 07:58 Plt Count 122 L (150-450) k/uL Neutrophils # 8.4 H (1.3-7.7) k/uL Lymphocytes # 0.8 L (1.0-4.8) k/uL Sodium 133 L (137-145) mmol/L Chloride 96 L (98-107) mmol/L BUN 18 H (7-17) mg/dL Glucose 198 H (74-99) mg/dL Assessment and Plan Assessment: This is an 82-year-old woman who presents because of worsening slurring of the speech and feeling off Acute transient dysarthria and on presentation she had numbness, aphasia, some confusion: Either TIA vs complicated migraine History of recent suspected stroke near second week of May 2022 in which the patient presented with expressive aphasia as well. The MRI was reported as negative by felt the patient had questionable small focus in the frontal parietal cortical region History of TIA History of Migraine Hypertension History of mitral valve prolapse. Plan: Pending MRI of the brain without rule out any acute ischemia (ordered Ativan 1mg since wants something to help her calm). I also ordered a routine EEG to rule out any underlying seizure or epileptiform discharges I started the patient on aspirin for home dose and in addition start her on Plavix which was discontinued in the past. Start the patient on Lipitor 40 mg daily at bedtime for secondary stroke prophylaxis Ordered 2-D echo. Neurochecks Cardiac monitoring PT OT and CANDY MIXER are consulted next We'll defer the rest of the medical management to primary team For DVT prophylaxis: On subcu heparin 5000 units every 12 hours Upon discharge the patient needs to follow-up with her neurologist as an outpatient (Dr. Patel). She has an appointment in 09/2022. Plan discussed with the patient and her daughter was at bedside Time with Patient: Less than 30
[2022-08-03] MEDS: PROPRANOLOL LA 80 MG CAP.SA.24H PO SCH (12:54)
[2022-08-03] MEDS: PANTOPRAZOLE 40 MG TABLET PO SCH (12:54)
[2022-08-03] MEDS: LOSARTAN 50 MG TAB PO SCH (12:54)
--- NOTE | 2022-08-03 13:00 | MR ---
EXAMINATION TYPE: MR brain wo con DATE OF EXAM: 08/03/2022 COMPARISON: CT brain yesterday. MRI brain May 22, 2022 HISTORY: Expressive aphasia, stroke. TECHNIQUE: Multiplanar, multisequence imaging of the brain and brainstem is performed without IV cont rast. FINDINGS: Diffusion weighted images demonstrate no evidence of a recent infarct or other diffusion abnormality. There is mild ventricular and sulcal prominence redemonstrated. Few scattered small foci of T2 hyperi ntensity is seen throughout the white matter bilaterally. There is small 6 mm extra-axial lesion left frontoparietal junction axial image 23. 2 reflect a meningioma seen better on prior MRI same image. Midline structures redemonstrate normal morphology. The craniocervical junction appears within chidi l limits. Normal vascular flow voids are present. [id number] mucosal thickening inferior left m axillary sinus is redemonstrated. Bilateral aphakia redemonstrated. IMPRESSION: 1. No MRI evidence for recent infarct. 2. Mild diffuse age-related cerebral atrophy and chronic small vessel ischemic change redemonstrated. Stable subcentimeter peripheral left frontal parietal meningioma noted.
[2022-08-03 16:13] LABS: Chol/HDL Ratio 2.39 Ratio; LDL Cholesterol,Calculated 63.3 mg/dL (0.0-131.0); VLDL Calculation 19.22 mg/dL (5.00-40.00)
--- NOTE | 2022-08-03 16:14 | P.HPIM ---
History of Present Illness H&P Date: 08/03/22 Patient is a pleasant 82-year-old female who presented to the emergency department with dysarthria lethargy and confusion. She is currently being worked up by neurology who thinks that patient may be had a TIA versus complicated migraine. She just completed an MRI results are pending she denies any nausea vomiting diaphoresis chest pain. Patient has been having problems since her last TIA where she was put on Plavix she states that she cannot take Plavix it causes too much nausea and vomiting and increases her anxiety because of taken it Review of Systems GENERAL: Patient denies fever. Denies chills. EYES: Denies blurred vision. Denies vision changes. Denies eye pain. EARS, NOSE, MOUTH, & THROAT: Denies headache. Denies sore throat. Denies ear dinora n. RESPIRATORY: Denies cough. Denies shortness of breath. Denies sputum production. Denies hemoptysis. CARDIOVASCULAR: Denies chest pain or pressure. Denies palpitations. Denies arrhythmias. GASTROINTESTINAL: Denies abdominal pain. Denies diarrhea. Denies constipation. Denies nausea. Denies vomiting. Denies heartburn. Denies blood in the stool. GENITOURINARY: Denies urinary frequency. Denies burning. Denies dysuria. Denies cloudy urine. Denies blood in the urine. MUSCULOSKELETAL: Denies myalgias. Denies joint swelling. Denies decreased range of motion beyond patients baseline. INTEGUMENTARY: Denies pruitis. Denies rash. PSYCHIATRIC: Denies suicidal or homicial ideations. ENDOCRINE: Denies weight change. Denies polydipsia. Denies polyuria. HEMATOLOGIC: Denies bleeding disorders. Past Medical History Past Medical History: Chest Pain / Angina, CVA/TIA, GERD/Reflux, Hyperlipidemia, Hypertension, Thyroid Disorder Additional Past Medical History / Comment(s): TIA in 2007 and 2010, Mitral Valve prolapse, hypothyroid. macular degen History of Any Multi-Drug Resistant Organisms: None Reported Past Surgical History: Hysterectomy, Joint Replacement, Tonsillectomy Additional Past Surgical History / Comment(s): bilateral knee, cataract removal left and right eye, temporal artery biopsy, hysterectomy Past Anesthesia/Blood Transfusion Reactions: No Reported Reaction Past Psychological History: Anxiety Smoking Status: Never smoker Past Alcohol Use History: None Reported Past Drug Use History: None Reported - Past Family History Father Family Medical History: Coronary Artery Disease (CAD) Mother Family Medical History: Coronary Artery Disease (CAD) Medications and Allergies Home Medications Medication Instructions Recorded Confirmed Type RX: ALPRAZolam [Xanax] 0.5 mg PO DAILY PRN 03/22/18 08/02/22 History RX: Pantoprazole [Protonix] 40 mg PO DAILY 03/22/18 08/02/22 History RX: Vit C/E/Zn/Coppr/Lutein/Zeaxan 1 cap PO DAILY 03/22/18 08/02/22 History [Preservision Areds 2 Softgel] RX: Cholecalciferol [Vitamin D3 25 mcg PO DAILY 05/21/22 08/02/22 History (25 Mcg = 1000 Iu)] RX: Levothyroxine Sodium 125 mcg PO DAILY 05/21/22 08/02/22 History [Synthroid] RX: Losartan Potassium 100 mg PO DAILY 05/21/22 08/02/22 History Aspirin EC [Ecotrin Low Dose] 81 mg PO DAILY 08/02/22 08/02/22 History Atorvastatin [Lipitor] 20 mg PO DAILY 08/02/22 08/02/22 History Propranolol LA [Inderal LA] 80 mg PO DAILY 08/02/22 08/02/22 History diphenhydrAMINE HCL [Benadryl] 25 mg PO Q4H PRN 08/02/22 08/02/22 History Allergies Allergy/AdvReac Type Severity Reaction Status Date / Time acetaminophen Allergy Anaphylaxis Verified 08/02/22 09:08 [From Darvocet-N] amoxicillin [From Augmentin] Allergy Anaphylaxis Verified 08/02/22 09:08 clavulanic acid Allergy Anaphylaxis Verified 08/02/22 09:08 [From Augmentin] codeine Allergy Unknown Verified 08/02/22 09:08 [From Tylenol-Codeine #3] Corticosteroids Allergy Anaphylaxis Verified 08/02/22 09:08 (Glucocorticoids) erythromycin base Allergy Unknown Verified 08/02/22 09:08 gabapentin Allergy Anaphylaxis Verified 08/02/22 09:08 Gadolinium-Containing Allergy Unknown Verified 08/02/22 09:08 Contrast Medi Iodinated Contrast Media Allergy Unknown Verified 08/02/22 09:08 levofloxacin [From Levaquin] Allergy Anaphylaxis Verified 08/02/22 09:08 naproxen [From Aleve] Allergy Swelling Verified 08/02/22 09:08 oxcarbazepine Allergy Anaphylaxis Verified 08/02/22 09:08 [From Trileptal] Penicillins Allergy Anaphylaxis Verified 08/02/22 09:08 phenytoin [From Dilantin] Allergy Anaphylaxis Verified 08/02/22 09:08 propoxyphene Allergy Anaphylaxis Verified 08/02/22 09:08 [From Darvocet-N] Sulfa (Sulfonamide Allergy Anaphylaxis Verified 08/02/22 09:08 Antibiotics) trimethobenzamide Allergy Unknown Verified 08/02/22 09:08 [From Tigan] potassium chloride AdvReac Chest Pain Verified 08/02/22 09:08 Physical Exam Osteopathic Statement: *. No significant issues noted on an osteopathic structural exam other than those noted in the History and Physical/Consult. Vitals: Vital Signs Temp Pulse Pulse Resp BP BP Pulse Ox 08/03/22 08:27 97.4 F L 68 16 147/70 95 08/03/22 07:53 93 L 08/03/22 03:17 97.8 F 60 16 128/73 93 L 08/02/22 23:00 97.6 F 63 18 159/82 94 L 08/02/22 22:11 63 18 172/85 90 L 08/02/22 20:54 173/96 08/02/22 20:50 68 18 92 L 08/02/22 20:00 70 18 186/90 98 08/02/22 17:00 53 L 18 124/59 91 L 08/02/22 16:45 98 F 54 L 18 124/77 98 08/02/22 16:15 98 F 53 L 18 137/65 98 08/02/22 16:00 52 L 18 135/64 90 L 08/02/22 15:45 98 F 54 L 16 135/64 97 08/02/22 15:15 98.1 F 55 L 16 169/85 97 08/02/22 15:00 55 L 18 180/85 94 L 08/02/22 14:45 98.1 F 56 L 16 180/85 97 08/02/22 14:15 98.0 F 54 L 16 174/82 97 08/02/22 14:00 52 L 20 154/74 92 L 08/02/22 13:45 98.0 F 51 L 16 154/74 98 08/02/22 13:15 50 L 18 170/72 94 L 08/02/22 13:00 51 L 18 183/83 94 L 08/02/22 12:45 52 L 18 180/86 92 L 08/02/22 12:15 51 L 18 177/84 94 L 08/02/22 11:15 98 F 58 L 16 185/101 97 08/02/22 11:00 98.0 F 56 L 20 176/91 94 L 08/02/22 10:45 98.0 F 56 L 16 176/91 97 08/02/22 10:30 98.0 F 56 L 16 171/81 97 08/02/22 10:15 98.0 F 58 L 16 188/86 97 08/02/22 10:00 98.0 F 56 L 16 181/84 97 Intake and Output 08/02/22 08/03/22 08/03/22 22:59 06:59 14:59 Intake Total 500 660 Balance 500 660 Intake: Oral 500 660 Other: Voiding Method External Catheter Weight 92.896 kg GENERAL: This is a 82 -year-old in no apparent distress at the time of examination. Pleasant and cooperative. HEENT: Head is atraumatic, normocephalic. Pupils are equal, round, and reactive to light. Sclerae anicteric. Conjunctivae are clear. Mucus membranes of the mout h are moist. Neck is supple. RESPIRATORY: Clear to auscultation. No wheezes, rales, or rhonchi. No use of accessory muscles. Patient maintaining oxygen saturation greater than 92%. No chest wall tenderness is noted on palpation or with deep breathing. CARDIOVASCULAR: Regular rate and rhythm. S1 and S2 noted. No systolic or diastolic murmur auscultated. No JVD noted. No S3 or S4 noted. GASTROINTESTINAL: No distention noted. Abdomen soft and round. Normal active bowel sounds auscultated x 4 quadrants. No pain or tenderness noted upon palpation. INTEGUMENTARY: No cyanosis. No jaundice. No rashes noted. No cellulitis noted. EXTREMITIES: 2+ peripheral pulses. No evidence of peripheral edema. No calf tenderness noted. NEUROLOGIC: Cranial nerves II-XII intact. PSYCHIATRIC: Awake, alert, and oriented X 3. Appropriate affect. Intact judgement and insight. Results CBC & Chem 7: 08/03/22 07:58 08/03/22 07:58 Labs: Abnormal Lab Results - Last 24 Hours (Table) 08/02/22 08/03/22 08/03/22 Range/Units 09:49 07:58 07:58 Plt Count 122 L (150-450) k/uL Neutrophils # 8.4 H (1.3-7.7) k/uL Lymphocytes # 0.8 L (1.0-4.8) k/uL Sodium 133 L (137-145) mmol/L Chloride 96 L (98-107) mmol/L BUN 18 H (7-17) mg/dL Glucose 198 H (74-99) mg/dL U Benzodiazepines Scrn Detected H (NotDetected) Thrombosis Risk Factor Assmnt - Choose All That Apply Any of the Below Risk Factors Present?: Yes Each Factor Represents 1 point: Obesity (BMI >25) Other Risk Factors: Yes Each Risk Factor Represents 3 Points: Age 75 years or older Other congenital or acquired thrombophilia - If yes, enter type in comment: No Thrombosis Risk Factor Assessment Total Risk Factor Score: 4 Thrombosis Risk Factor Assessment Level: Moderate Risk Assessment and Plan (1) TIA (transient ischemic attack) Current Visit: Yes Status: Acute Code(s): G45.9 - TRANSIENT CEREBRAL ISCHEMIC ATTACK, UNSPECIFIED SNOMED Code(s): 058154109 (2) Atypical migraine Current Visit: Yes Status: Acute Code(s): G43.009 - MIGRAINE W/O AURA, NOT INTRACTABLE, W/O STATUS MIGRAINOSUS SNOMED Code(s): 75712431 (3) Cerebrovascular accident (CVA) Current Visit: Yes Status: Acute Code(s): I63.9 - CEREBRAL INFARCTION, UNSPECIFIED SNOMED Code(s): 423629248 (4) GERD (gastroesophageal reflux disease) Current Visit: Yes Status: Acute Code(s): K21.9 - GASTRO-ESOPHAGEAL REFLUX DISEASE WITHOUT ESOPHAGITIS SNOMED Code(s): 193958174 (5) Hypertensive cardiovascular disease Current Visit: Yes Status: Acute Code(s): I11.9 - HYPERTENSIVE HEART DISEASE WITHOUT HEART FAILURE SNOMED Code(s): 55101026 Plan: Patient is continuing to work up with neurology most likely patient suffered atypical migraine versus TIA we'll check MRI results if negative patient could possibly go home with some migraine prophylaxis versus acute treatment. We wish patient stay on her Plavix but this has caused her problems in the past
[2022-08-03] MEDS: ATORVASTATIN 40 MG TAB PO SCH (19:49)
--- NOTE | 2022-08-03 22:36 | EEG ---
ELECTROENCEPHALOGRAM REPORT CLINICAL HISTORY: This is an 82-year-old woman with altered mental status. The video EEG is obtained to evaluate for seizure epileptiform activity. RELEVANT MEDICATION: The patient is not on any antiseizure medication. EEG TYPE: A routine 21-channel EEG is performed with video using the 10/20 electrode placement system. DESCRIPTION: Wakefulness is only obtained. During awake state, the posterior-dominant rhythm consists of low to moderate voltage of 8-9 hertz activity that is well modulated and well sustained. There is no physiological stage 2 sleep architecture. There is no focal slowing. Interictal and ictal: None. ACTIVATION PROCEDURE: Photic stimulation did not evoke a posterior driving response. There is no abnormality during the photic stimulation. Hyperventilation is not performed. CLINICAL INTERPRETATION: This is a normal routine EEG. There is no focal slowing, epileptiform discharge, or seizure on the EEG. A normal routine EEG does not rule out underlying epilepsy. Clinical correlation is recommended PAOLO / MARY: [id number] / MTDD
[2022-08-04] MEDS: PANTOPRAZOLE 40 MG TABLET PO SCH (06:27)
[2022-08-04] MEDS ORDERED: LEVOTHYROXINE 125 MCG TAB PO SCH (06:30)
[2022-08-04 07:49] VITALS: BP 131/65; PULSE 53; RESP 17; TEMP 97.5
[2022-08-04] MEDS: PROPRANOLOL LA 80 MG CAP.SA.24H PO SCH (08:21)
[2022-08-04] MEDS: CLOPIDOGREL 75 MG TAB PO SCH (08:21)
[2022-08-04] MEDS: LOSARTAN 50 MG TAB PO SCH (08:21)
[2022-08-04] MEDS: HEPARIN SODIUM,PORCINE/PF 5,000 UNIT/0.5 ML SYRINGE SQ SCH (08:21)
[2022-08-04] MEDS: ASPIRIN 81 MG PO SCH (08:21)
[2022-08-04] MEDS ORDERED: CHOLECALCIFEROL 25 MCG (1000 IU) TABLET PO SCH (09:00)
[2022-08-04] MEDS ORDERED: VIT A,C & E-LUTEIN-MINERALS 1 EACH TAB PO SCH (09:00)
--- NOTE | 2022-08-04 15:32 | P.PN ---
Subjective Progress Note Date: 08/04/22 Patient seen at the side and she is accompanied with her daughter. Patient is back to baseline. No further neurological deficit. Currently does not have any headache. Objective - Vital Signs Vital signs: Vital Signs Temp 97.5 F L 08/04/22 07:48 Pulse 53 L 08/04/22 07:48 Resp 17 08/04/22 07:48 BP 131/65 08/04/22 07:48 Pulse Ox 94 L 08/04/22 07:48 FiO2 Intake & Output 08/03/22 08/04/22 08/04/22 18:59 06:59 18:59 Intake Total 1680 510 Balance 1680 510 Intake: Oral 1680 510 Other: Voiding Method Toilet Toilet Toilet # Voids 3 - Exam Neuro: Patient is awake alert oriented to self place and time. Minimally told to respond but better than yesterday. No aphasia and no neglect. Visual burgess are full to confrontation. Extraocular movements intact and no nystagmus. Mild right facial weakness which is old. No dysarthria Motor: Gait is normal. Strength is 5 out of 5. Some of the workup during this hospital consisted of: Ammonia level is less than 9. AST is 52 ALT is 45. Initial serum glucose in the is 126. Sodium is 131. Carotid access 33. CK levels within normal limits. Calcium is within normal limits Urinalysis is negative for urinary tract infection Vitamin B-12 was 491 Serum folate is 11.3 Ammonia is less than 9. Urine drug screen is positive for benzos. Patient is on Xanax. CT of the head is reported as no acute intracranial abnormality seen. Mild to moderate chronic left maxillary and ethmoid sinus disease. I personally reviewed the CT and agree with the report. CT angiography of the head and neck is reported as no evidence of dissection of the cervical internal carotid arteries or vertebral artery or any evidence of significant stenosis at the carotid bifurcation. No evidence of high-grade int racranial stenosis or intracranial aneurysm. There is at least 25% stenosis of the vertebral arteries and internal carotid arteries intracranial portion second due to calcified plaque. Mild pulmonary edema suggests correlate with serum BNP. 2D echo was reported as left ventricular hypertrophy with preserved systolic function. Calcific aortic valve with thickened leaflets and mild to moderate ao rtic valve stenosis. Left atrial enlargement. MR the brain is reported as no MRI evidence for recent infarct. A mild diffuse age-related cerebral atrophy and chronic small vessel ischemic changes re demonstrated. Stable subcentimeter peripheral left frontal parietal meningioma noted. Routine EEG is normal. There is no focal slowing, epileptiform discharges or seizure. - Labs CBC & Chem 7: 08/03/22 07:58 08/03/22 07:58 Assessment and Plan Assessment: This is an 82-year-old woman who presents because of worsening slurring of the speech and feeling off Acute transient dysarthria and on presentation she had numbness, aphasia, some confusion: Either TIA vs complicated migraine History of recent suspected stroke near second week of May 2022 in which the patient presented with expressive aphasia as well. The MRI was reported as negative by felt the patient had questionable small focus in the frontal pa rietal cortical region Meningioma over the left frontal parietal that subcentimeter on MRI History of TIA History of Migraine Hypertension History of mitral valve prolapse. Plan: MRI Brain is negative for stroke and EEG is normal. I started the patient on aspirin for home dose and in addition start her on Plavix which was discontinued in the past. Start the patient on Lipitor 40 mg daily at bedtime for secondary stroke prophylaxis Comment the patient to follow up with a neurologist and neurosurgeon for surveillance of the meningioma. Neurochecks Cardiac monitoring For her migraine management will defer the management to her neurologist as an outpatient. PT OT and [facility]ACT[facility] NURSE [facility]INIC NURSE are consulted next We'll defer the rest of the medical management to primary team For DVT prophylaxis: On subcu heparin 5000 units every 12 hours Upon discharge the patient needs to follow-up with her neurologist as an outpatient (Dr. Patel). She has an appointment in 09/2022. Plan discussed with the patient and her daughter was at bedside No additional neurological workup. Time with Patient: Less than 30
== END 2022-08-04 12:06 | disposition home or self-care (01) | DRG 103 ==
LOC: EC 08:41 → 3SCARD 11:47
PROVIDERS: ADMIT Family Medicine; ATTEND Family Medicine
DX: G43.109 Migraine with aura, not intractable, without status migrainosus (principal); G45.9 Transient cerebral ischemic attack, unspecified; R47.01 Aphasia; I11.9 Hypertensive heart disease without heart failure; D32.0 Benign neoplasm of cerebral meninges; R47.1 Dysarthria and anarthria; R29.810 Facial weakness; E03.9 Hypothyroidism, unspecified; E78.5 Hyperlipidemia, unspecified; F41.9 Anxiety disorder, unspecified; K21.9 Gastro-esophageal reflux disease without esophagitis; I34.1 Nonrheumatic mitral (valve) prolapse; I35.0 Nonrheumatic aortic (valve) stenosis; H35.30 Unspecified macular degeneration; Z79.82 Long term (current) use of aspirin; Z79.890 Hormone replacement therapy; Z79.899 Other long term (current) drug therapy; Z86.73 Personal history of transient ischemic attack (TIA), and cerebral infarction without residual deficits; Z96.653 Presence of artificial knee joint, bilateral; Z88.5 Allergy status to narcotic agent; Z88.0 Allergy status to penicillin; Z88.2 Allergy status to sulfonamides; Z88.8 Allergy status to other drugs, medicaments and biological substances; Z88.6 Allergy status to analgesic agent; Z91.041 Radiographic dye allergy status
CPT/HCPCS: 36415; 70450; 70496; 70498; 70551; 71046; 80048; 80053; 80061; 80306; 81003; 82140; 82550; 82607; 82746; 84484; 85025; 85610; 85730; 93005; 93306; 94760; 95816; 96361; 96374; 96375; 99291

== ENCOUNTER → 2023-01-23 | Outpatient (CLI) | payer MEDICARE ==
[2023-01-23 14:52] LABS: Basophils # (A) 0.02 X 10*3/uL (0.00-0.10); Basophils % (A) 0.4 %; Eosinophils # (A) 0.11 X 10*3/uL (0.04-0.35); Eosinophils % (A) 2.2 %; HCT 41.7 % (37.2-46.3); HGB 13.6 g/dL (12.0-15.0); Immature Platelet Fraction 7.8 % (1.1-6.1); Lymphocytes # (A) 1.25 X 10*3/uL (0.90-5.00); Lymphocytes % (A) 25.2 %; MCH 29.6 pg (27.0-32.0); MCHC 32.6 g/dL (32.0-37.0); MCV 90.8 FL (80.0-97.0); Mean Platelet Volume 11.8 FL (9.5-12.2); Monocytes # (A) 0.54 X 10*3/uL (0.20-1.00); Monocytes % (A) 10.9 %; NRBC Per 100 WBC 0 X 10*3/uL (0.00-0.01); Neutrophils # (A) 3.03 X 10*3/uL (1.80-7.70); Neutrophils % (A) 60.9 %; Platelet Count 84 X 10*3/uL (140-440); RBC 4.59 X 10*6/uL (4.10-5.20); RDW 16.1 % (11.5-14.5); WBC 4.97 X 10*3/uL (4.50-10.00)
[2023-01-23 14:53] LABS: RBC Morphology Normal (Normal)
== END | disposition home or self-care (01) ==
LOC: LABWHC1 06:58
PROVIDERS: ATTEND Ophthalmology
DX: H35.63 Retinal hemorrhage, bilateral (principal); H35.041 Retinal micro-aneurysms, unspecified, right eye
CPT/HCPCS: 36415; 83036; 85025